=== PATIENT | male | born 1955 | race Caucasian/White ===

== ENCOUNTER 2024-05-16 08:27 | Outpatient (REF) | payer MEDICARE, SELFPAY ==
--- NOTE | ~2024-05-16 | XR_ITS ---
CLINICAL HISTORY: M25.562 - Pain in left knee 3 view left knee Comparison: None Findings: Bones intact. There appears to be mild lateral subluxation of the patella. Medial joint space loss with subchondral sclerosis. Chondrocalcinosis in the lateral compartment. Patellofemoral osteophytes. No joint effusion. No radiopaque foreign body. IMPRESSION: 1. Tricompartment degenerative change with joint space loss greatest in the medial compartment. Mild lateral patellar subluxation. This document has been electronically signed by: Jalyn Ribera MD on 05/18/2024 06:23:37
--- NOTE | ~2024-05-16 | XR_ITS ---
CLINICAL HISTORY: M25.561 - Pain in right knee 3 view right knee Comparison: None Findings: Bones intact. No dislocations. Medial compartment joint space loss with subchondral sclerosis. Lateral compartment chondrocalcinosis. Patellofemoral osteophyte formation. mild lateral subluxation of the patella. Small to moderate joint effusion. No radiopaque foreign body. IMPRESSION: 1. 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 2. Chondrocalcinosis. 3. Mild medial patellar subluxation and small to moderate joint effusion. This document has been electronically signed by: Jalyn Ribera MD on 05/18/2024 09:03:50
== END 2024-05-16 08:28 | disposition home or self-care (01) ==
LOC: HO.HOSX 08:27
PROVIDERS: Visit Provider Orthopaedic Surgery
DX: M25.562 Pain in left knee (principal); M25.561 Pain in right knee; M17.0 Bilateral primary osteoarthritis of knee; M11.261 Other chondrocalcinosis, right knee; S83.001A Unspecified subluxation of right patella, initial encounter; M25.461 Effusion, right knee
CPT/HCPCS: 73562

== ENCOUNTER 2024-05-16 12:39 | Outpatient (AMB) | payer OTHER, SELFPAY ==
--- NOTE | 2024-05-16 12:59 | MHC.OFFVIS ---
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 He describes his pains as sharp nature. His pains have gotten worse over the last few years in spite of continued non operative treatments. He has failed the last 3 months of conservative treatment which include a home exercise program, Tylenol and topical creams. He is not able to take anti-inflammatory medicines because he is on Eliquis. He has had cortisone injections given into both of his hands in the past. The injections gave him only temporary relief. He wishes to hold off on surgery if at all possible. At this point his bilateral knee pains are interfering with his activities of daily living and his ability to sleep well through the night. Medication List - Last Reconciled 05/16/24 by Danny Samnao MD apixaban (Eliquis) 5 mg PO BID atorvastatin 40 mg PO DAILY losartan 25 mg PO DAILY metoprolol succinate ER 25 mg PO DAILY valacyclovir 1,000 mg PO BID Physical Exam Vital Signs: BMI result Body Mass Index 30.7 Const Other: Well-nourished well-developed very friendly male awake alert and oriented x3 in no acute distress Extrem Other: Bilateral lower extremity examination shows good capillary refill, no skin lesions noted, normal sensation light touch Bilateral knee examination shows minimal effusions, palpable crepitus with range of motion, pain with range of motion, no instability Results Reviewed Results Reviewed: X-rays of the patient's bilateral knees taken today show moderate joint space narrowing most significant in the medial compartment, subchondral sclerosis, no acute bony abnormalities Assessment & Plan Assessment & Plan (1) Osteoarthritis of right knee: Code(s): M17.11 - Unilateral primary osteoarthritis, right knee Category: Medical (2) Osteoarthritis of left knee: Code(s): M17.12 - Unilateral primary osteoarthritis, left knee Category: Medical Plan Mr. Causey presents with bilateral knee pains due to osteoarthritis. I had a lengthy discussion with the patient regarding the treatment options. He wishes to hold off on surgery for as long as possible. I agree with this plan. Thus, I will see whether or not the patient's insurance company will cover a viscosupplementation injection, such as Durolane, for both of his knees. I will see him back once the injections are available. Feel free to call me at any time should questions regarding his orthopedic management arise. I spent 21 minutes in reviewing the patient's records and imaging studies, seeing the patient and documenting in the medical record. Orders: Orders XR knee LT 3V Today M25.562 - Pain in left knee XR knee RT 3V Today M25.561 - Pain in right knee Coding Level of Care Code Est Pt Level 3 (45001) Complex EM visit Add On G2211 Diagnoses Osteoarthritis of right knee M17.11 Osteoarthritis of left knee M17.12
[2024-05-16 13:08] VITALS: BMI 30.7
--- OUTSIDE RECORDS SUMMARY | 2024-05-16 14:52 | XMS_ITS | Clinical Summary ---
Author Organization [facility] Address [address] [place] [address] Care Team Providers Care Ballroom Dance Instructor Name Role Phone Ellis Prince MD Primary Care Provider [phone] Allergies Active Allergy Reactions Criticality Noted Date Comments Doxycycline 04/01/2021 Other reaction(s): Peeling of skin Lisinopril 07/25/2020 Medications Medication Sig Dispensed Refills Start Date End Date Status losartan (COZAAR) tablet 25 mg Take 1 tablet by mouth daily. 0 12/16/2020 Active metoprolol succinate (TOPROL-XL) 24 hr tablet 25 mg Take 1 tablet by mouth daily. 0 12/16/2020 Active Family History Medical History Relation Name Comments Diabetes Father Cancer Mother Relation Name Status Comments Father Mother Social History Tobacco Use Types Packs/Day Years Used Date Smoking Tobacco: Never Assessed Sex and Gender Information Value Date Recorded Sex Assigned at Not on file Gender Identity Not on file Sexual Orientation Not on file Job Start Date Occupation Industry Not on file Not on file Not on file Last Filed Vital Signs Vital Sign Reading Time Taken Comments Blood Pressure - - Pulse - - Temperature - - Respiratory Rate - - Oxygen Saturation - - Inhaled Oxygen Concentration - - Weight 96.2 kg (212 lb) 04/09/2021 9:28 AM EST Height 177.8 cm (5' 10 ) 04/09/2021 9:28 AM EST Body Mass Index 30.42 04/09/2021 9:28 AM EST Plan of Treatment Health Maintenance Due Date Last Done Comments Hepatitis C Screening 1955 COVID-19 Vaccine (#1) 1953 Depression Screening 1965 BMI Counseling 1971 Preventative Health Evaluation 1971 DTap / Tdap / Td (1 - Tdap) 1972 Colon Cancer Screening (Colonoscopy) 1998 Shingrix-Zoster Vaccine (1 of 2) 2003 Fall Risk Assessment 2018 Pneumococcal Vaccine (1 of 1 - PCV) 2018 Influenza Vaccine (#1) 2023 RSV Adult > 60+ Yrs or Pregn ant (1 - 1-dose 75+ series) 2028 Hepatitis B Vaccines Aged Out No long er eligible based on patient's age to complete this topic RSV Ped < 20 months Aged Out No longe r eligible based on patient's age to complete this topic Care Teams Ballroom Dance Instructor Relationship Specialty Start Date End Date Ellis Prince MD [address] [facility], [address] [place] [address] PCP - General Rn Chemical Dependency 03/18/21
--- OUTSIDE RECORDS SUMMARY | 2024-05-16 14:52 | XMS_ITS | Encounter Summary ---
Author Organization [facility] Address [address] [place] [address] Care Team Providers Care Airport Utility Worker Name Role Phone Myra Martinez Primary Care P rovider Reason for Visit * Reason Onset Date Comments Chest Pain 04/26/2024 travel advise 04/26/2024 Encounter Details Date Type Department Care Team (Late st Contact Info) Description 04/26/2024 Telephone [facility] Cardiology [address] [place] [address] Thiago Hunt MD [address] [place] [address],[address] [address] Chest Pain; travel advise Social History Tobacco Use Types Packs/Day Years Used Date Smoking Tobacco: Former Smokeless Tobacco: Never Alcohol Use Standard Drinks/Week Comments Yes 0 (1 standard drink = 0.6 oz pur e alcohol) a glass of wine with dinner Sex and Gender Information Value Date Recorded Sex Assigned at Male 05/15/2024 3:34 PM EDT Legal Sex Male 1:59 AM EST Gender Identity Male 05/15/2024 3:34 PM EDT Sexual Orientation Straight 05/15/2024 3: 34 PM EDT documented as of this encounter Progress Notes * Brea Teixeira MA - 04/28/2024 8:01 AM EST I called Ellis and advised as souravo * Deangelo Soria - 04/27/2024 1:25 PM EST Patient calling back wanting to know if he would be ok to be on a plane since he Is leaving for [place] on Wednesday. * Brea Teixeira MA - 04/27/2024 8:[address] Hunt would you like to see the pt for a triage visit, or since he was in the office a couple weeks ago would you just like to have a phone conversation with him ? I did advise him he will need a more aggressive approach towards trying to get a referral for the cpap machine via new PCP * Crista East NP - 04/27/2024 7:47 AM EST It appears the patient was just recently seen by Dr. Hunt a couple weeks ago with extensive conversations about continuing the Eliquis regimen. If he continues to have questions or exhibits any more symptoms of chest discomfort, shortness of breath or worsening symptoms, he may need to have a triage visit for further evaluation. Please review ER precautions as well. * Brea Teixeira MA - 04/26/2024 4:35 PM EST I spoke to Ellis who tells me two nights ago he had an episode of chest pain and dizziness which happened on his way inside the house from getting wood for his stove, he had to lay down for a whileuntil the sensation went away, he knows the signs to look for for an NM and he was negative for all, he does say during the episode his head was pounding, but quickly went away when the pain was gone, he drinks two cups of caffeinated coffee in the am and has 1 to 2 glasses of wine with dinner every night. He is compliant with all meds but is questioning the Eliquis since it states the side effects are worse for people who have had back surgeries which he has had, as you know he has untreated sleep apnea and has had quite the trouble getting a referral from the former PCP, he is due to see a new PA in the office but not soon enough, the night of the incident he did say he had spicy blackened scallops but he is not stranger to spice so he states it could have not contributed. He is aware why he is taking the Eliquis but wonders if it can either be lowered or discontinued altogether. Hi average bp is 130/80 and hr in the 70's--today he is completely asymptomatic and is in good spirits He is aware his careteam has gone home for the day and I will be calling him with advisement tomorrow * Kya Fishman - 04/26/2024 4:18 PM EST The patient called, 2 nights ago he was having intense chest pain, dizziness and did not feel well.He almost went to the ER but it resolved on its own. He has had no incidents since. This brought upquestions and concerns he has regarding his medications. He is also traveling to [place] soon and is worried about that. Please call him back at [phone]. documented in this encounter Plan of Treatment Upcoming Encounters Date Type Department Care Team (Late st Contact Info) Description 07/06/2024 11:20 AM EDT Consult [facility] Cardiology [facility] [address] [place] [address] Aidan Barcenas MD [address] [facility] [address] [place] [address] 10/03/2024 9:00 AM EDT Ancillary Procedure [facility] Cardiology [facility] [address] [place] [id number] 10/24/2024 10:10 AM EDT Office Visit [facility] [address] [place] [address] Jeronimo Stiles NP [address] [place] [address] [address] [place] [address] documented as of this encounter Visit Diagnoses Not on filedocumented in this encounter Care Teams Airport Utility Worker Relationship Specialty Start Date End Date Myra Martinez PA [address] [place] [id number] PCP - General 04/03/24 documented as of this encounter
--- OUTSIDE RECORDS SUMMARY | 2024-05-16 14:52 | XMS_ITS | Clinical Summary ---
Author Organization [facility] [employer] Address [address] [place] [address] Phone Care Team Providers Care Family Practitioner Name Role Phone Myra Martinez Primary Care P rovider Allergies Active Allergy Reactions Criticality Noted Date Comments Doxycycline 04/01/2021 Other reaction(s): Peeling of skin Lisinopril 07/25/2020 Medications ascorbic acid (VITAMIN C) 500 mg chewable tablet Take 500 mg by mouth daily. 10/22/19 20 Active vitamin B complex/folic acid (B COMPLEX 100 ORAL) Take 1 Tablet by mouth daily. 10/22/19 20 Active MAGNESIUM CITRATE ORAL Take 1 tablet by mouth 1 (one) time each day. 10/22/19 20 Active valacyclovir HCl (VALACYCLOVIR ORAL) Take by mouth as needed. Active aspirin 81 mg EC tablet Take 1 tablet (81 mg total) by mouth 1 (one) time each day. 11/18/19 23 Active cholecalciferol (VITAMIN D-3) 50 mcg (2,000 unit) tablet Take 1 tablet (2,000 Units total) by mouth 1 (one) time each day. Active furosemide (LASIX) 20 mg tablet Take 1 tablet (20 mg total) by mouth 1 (one) time each day if needed. 02/27/20 23 Active metoprolol succinate (TOPROL-XL) 25 mg 24 hr tablet Take 1 tablet (25 mg total) by mouth 1 (one) time each day. 12/06/19 24 Active losartan (COZAAR) 25 mg tablet TAKE 1 TABLET BY MOUTH DAILY 90 tablet 1 03/08/19 25 Active multivitamin with minerals tablet Take 1 tablet by mouth 1 (one) time each day. Active ASHWAGANDHA EXTRACT ORAL Take by mouth. Active plant stanol fabiano (CHOLEST OFF ORAL) Take by mouth. Active ZINC ORAL Take by mouth. Active atorvastatin (LIPITOR) 40 mg tabletIndications:Pure hypercholesterolemia Take 1 tablet (40 mg total) by mouth 1 (one) time each day. 90 each 3 04/04/19 25 026 Active apixaban (ELIQUIS) 5 mg tablet Take 1 tablet (5 mg total) by mouth 2 (two) times a day. 180 tablet 1 04/21/19 25 Active apixaban (ELIQUIS) 5 mg tablet Take 1 tablet (5 mg total) by mouth 2 (two) times a day. 025 Discontin ued(Reord er) Active Problems Problem Noted Date Diagnosed Date Pure hypercholesterolemia 04/04/2024 Assessment & Plan (04/04/2024 12:30 PM EST): LDL in90's on atorvastatin 10 mg. Will increase to 40 mg a day. Paroxysmal atrial fibrillation 04/02/2024 Assessment & Plan (04/04/2024 12:26 PM EST): Suspect contribution of untreated sleep apnea. Patient had abnl sleep study a year ago and has not yet had device therapy!!! Possible trigger was berberine as part of vessel health supplement . Negative 48 hr holter. Continue eliquis for at least 6 months and use link bird for monitoring for now. Orders: ECG 12 lead Transthoracic echocardiogram (TTE) complete with PRN contrast, bubble, strain, and 3D order panel; Future Coronary artery disease 01/31/2024 Left inguinal pain 01/31/2024 Recurrent left inguinal hernia 01/31/2024 Vertigo 08/27/2022 Nonischemic cardiomyopathy 08/08/2020 Assessment & Plan (04/04/2024 12:26 PM EST): EF has improved. Will update echo. Orders: ECG 12 lead ELIO (obstructive sleep apnea) 08/08/2020 Thoracic aortic aneurysm without rupture 021 Assessment & Plan (04/04/2024 12:26 PM EST): Dilated aortic root and ascending aorta. Will update echo. Orders: ECG 12 lead Transthoracic echocardiogram (TTE) complete with PRN contrast, bubble, strain, and 3D order panel; Future Nonrheumatic aortic (valve) insufficiency 2020 Assessment & Plan (04/04/2024 12:26 PM EST): Moderate on prior echo and on exam. Orders: ECG 12 lead Transthoracic echocardiogram (TTE) complete with PRN contrast, bubble, strain, and 3D order panel; Future Shortness of breath 07/25/2020 Encounters Date Type Department Care Team Description 05/16/2024 9:45 AM EDT Ancillary Procedure [facility] [address] [place] [address] Claudication of both lower extremities (CMS/HCC) 04/26/2024 [address]phone [facility] [address] [place] [address] Dontrell Sylvester MD Chest Pain; travel advise 04/04/2024 9:20 AM EST Office Visit [facility] [address] [place] [address] Dontrell Sylvester MD Nonrheumatic aortic (valve) insufficiency (Primary Dx); Nonischemic cardiomyopathy (CMS/HCC); Thoracic aortic aneurysm without rupture, unspecified part (CMS/HCC); Paroxysmal atrial fibrillation (CMS/HCC); Pure hypercholesterolemia; Claudication of both lower extremities (CMS/HCC) 03/10/2024 1:30 PM EST Ancillary Procedure [facility] [address] [place] [address] Tachycardia; Shortness of breath 03/08/2024 [address]phone [facility] [address] [place] [address] Dontrell Sylvester MD 03/02/2024 Telephone [facility] [address] [facility] [address] [place] [address] Dontrell Sylvester MD patient having episodes of a-fib from Last 3 Months Surgical History Surgery Date Site/Laterality Comments BACK SURGERY PROCEDURE: HISTORICAL BACK SURGERY SHOULDER SURGERY PROCEDURE: HISTORICAL SHOULDER SURGERY HERNIA REPAIR 09/27/2015 Left PROCEDURE: LAPAROSCOPY, INGUINAL HERNIA REPAIR Medical History Medical History Date Comments Coronary artery disease DX:Coron rohan artery disease Left inguinal pain DX:Left ingui nal pain Recurrent left inguinal hernia D X:Recurrent left inguinal hernia ELIO (obstructive sleep apnea) DX :ELIO (obstructive sleep apnea) Occipital headache DX:Occipital headache Family History Medical History Relation Name Comments Diabetes Father Other: heart disease Father Other: lymphoma Mother Relation Name Status Comments Father Mother [...] Orientation Straight 05/15/2024 3: 34 PM EDT Obstetrics History Last Filed Vital Signs Vital Sign Reading Time Taken Comments Blood Pressure 130/66 04/04/2024 9:08 AM EST Pulse 62 04/04/2024 9:08 AM EST Temperature - - Respiratory Rate - - Oxygen Saturation 95% 04/04/2024 9:08 AM EST Inhaled Oxygen Concentration - - Weight 99.7 kg (219 lb 11.2 oz) 04/04/2024 9:08 AM EST Height 177.8 cm (5' 10 ) 04/04/2024 9:08 AM EST Body Mass Index 31.52 04/04/2024 9:08 AM EST Plan of Treatment Upcoming Encounters Date Type Department Care Team (Late st Contact Info) Description 07/06/2024 11:20 AM EDT Consult [facility] [address] [facility] [address] [place] [address] Aidan Barcenas MD [address] [place] [address] [address] [place] [address] 10/03/2024 9:00 AM EDT Ancillary Procedure [facility] [address] [place] [address] 10/24/2024 10:10 AM EDT Office Visit [facility] [address] [place] [phone] Jeronimo Stiles NP [address] [place] [address] [address] [place] [address] Health Maintenance Due Date Last Done Comments DTaP,Tdap,and Td Vaccines (1 - Tdap) 1972 Pneumococcal Vaccine: 50+ Years (1 of 2 - PCV) 1972 RSV Immunization Patients 60+ Years Old (1 - Risk 60-74 years 1-dose series) 2013 Zoster Vaccines (1 of 2) 02/04/2016 12/10/2015 Abdominal Aortic Aneurysm (AAA) Screen 02/01/2022 Colorectal Cancer Screening: Colonoscopy 02/01/2022 Depression Screening 02/01/2022 Falls Risk Assessment 02/01/2022 Hepatitis C Screening 02/01/2022 Medicare Annual Wellness Visit 02/01/2022 Social Influencers of Health Screening 02/01/2022 Hypertension/CHF/CAD Annual BMP Blood Test 02/04/2022 03/29/2019 COVID-19 Vaccine ( season) 2023 02/19/2021, 06/29/2020, 05/30/2020 Influenza Vaccine (#1) 2023 0, 02/08/2019, 01/14/2017, Additional history exists Cholesterol Screening (Lipid Panel) 03/31/2029 03/31/2024 HIB Vaccines Aged Out No longer eligi ble based on patient's age to complete this topic HPV Vaccines Aged Out No longer eligi ble based on patient's age to complete this topic Hepatitis A Vaccines Aged Out No long er eligible based on patient's age to complete this topic Hepatitis B Vaccines Aged Out No long er eligible based on patient's age to complete this topic IPV Vaccines Aged Out No longer eligi ble based on patient's age to complete this topic MMR Vaccines Aged Out No longer eligi ble based on patient's age to complete this topic Meningococcal ACWY Vaccine Aged Out N o longer eligible based on patient's age to complete this topic Meningococcal B Vacine Aged Out No lo nger eligible based on patient's age to complete this topic RSV Immunization Patients Under 20 months Aged Out No longer eligible based on patient's age to complete this topic Varicella Vaccines Aged Out No longer eligible based on patient's age to complete this topic Procedures Procedure Name Priority Date/Time Associated Diagnosis Comments ECG 12-LEAD Routine 04/04/2024 9:21 AM EST Nonrheumatic aortic (valve) insufficiency Nonischemic cardiomyopathy (CMS/HCC) Thoracic aortic aneurysm without rupture, unspecified part (CMS/HCC) Paroxysmal atrial fibrillation (CMS/HCC) SPECIMEN STATUS REPORT Routine 03/31/2024 10:00 AM EST LIPID PANEL Routine 03/31/2024 10:00 AM EST CARDIAC HOLTER MONITOR (REPORT GENERATED IN HOUSE) Routine 03/10/2024 1:34 PM EST Tachycardia Shortness of breath from Last 3 Months Results * ECG 12 lead (04/04/2024 9:21 AM EST) Ventricular Rate ECG 62 BPM GEMUSE Atrial Rate 62 BPM GEMUSE P-R Interval 198 ms GEMUSE QRS Duration 98 ms GEMUSE Q-T Interval 428 ms GEMUSE QTc 434 ms GEMUSE P Wave [place] 76 degrees GEMUSE R [place] 9 degrees GEMUSE T [place] -31 degrees GEMUSE ECG Interpretation Normal sinus rhythm ST and T wave abnormality, consider lateral ischemia Abnormal ECG When compared with ECG of 26-APR-2015 16:45, Inverted T waves have replaced nonspecific T wave abnormality in Lateral leads Confirmed by DONTRELL SYLVESTER ([id number]) on 04/04/2024 9:31:47 AM GEMUSE 04/04/2024 9:21 AM EST 04/04/2024 9:31 AM EST us Dontrell Sylvester MD ECG ORDERABLES Final Result GEMUSE * SPECIMEN STATUS REPORT (03/31/2024 10:00 AM EST) Specimen Status Report Comment [facility] 1 Comment: Cecilia Benitez LP Default Cecilia Mcnamararedelfina LP Default A hand-written panel/profile was received from your office. In accordance with the [facility] Ambiguous Test Code Policy dated August 2002, we have completed your order by using the closest currently or formerly recognized AMA panel. ??We have assigned Lipid Panel, Test Code #383306 to this request. If this is not the testing you wished to receive on this specimen, please contact the [facility] Client Inquiry/Technical Services Department to clarify the test order. ??We appreciate your business. 03/31/2024 10:0 0 AM EST 03/31/2024 Narrative [facility] 1 - 04/01/2024 1:05 AM EST Performed at: ??01 - [facility] [address] ??[id number] Mine Engineering Manager: Consuelo Villagomez MD, Phone: ??[phone] us Dontrell Sylvester MD LAB BLOOD ORDERABLES Final Res ult [facility] * (ABNORMAL) Lipid panel (03/31/2024 10:00 AM EST) Cholesterol Total 164 100 - 199 mg/dL [facility] 1 Triglycerides 158(H) 0 - 149 mg/dL [facility] 1 HDL Cholesterol 46 >39 mg/dL [facility] 1 VLDL Cholesterol Calculated 27 5 - 40 mg/dL [facility] 1 LDL Chol Calc (NIH) 91 0 - 99 mg/dL [facility] 1 03/31/2024 10:0 0 AM EST 03/31/2024 Narrative [facility] 1 - 04/01/2024 1:05 AM EST Performed at: ??01 - [facility] [address] ??[id number] Mine Engineering Manager: Consuelo Villagomez MD, Phone: ??[phone] us Dontrell Sylvester MD LAB BLOOD ORDERABLES Final Res ult [facility] * CARDIAC HOLTER MONITOR (REPORT GENERATED IN HOUSE) (03/10/2024 1:34 PM EST) Anatomical Region Laterality Modality Cardiac Diagnost ic Narrative 03/19/2024 8:40 PM EST [facility] DIAGNOSTIC TESTING DEPARTMENT [address] [facility], [id number] [place] [id number] TEL: FAX: Type of Test: 48 Hour Holter Monitor Date of Test: 03/10/2024 Ordering Provider: Isabel Carrillo NP Reason for Test: Tachycardia, Shortness of breath [facility] Canine Service Teacher Findings: ?? 1: Normal Sinus Rhythm with periods of Sinus Bradycardia. 2: Heart rate range was 47-108 BPM with an average of 65 BPM. Total time in Sinus Bradycardia: 20 hrs 51 mins. ?? 3: Occasional PACs. Rare aberrant beats, atrial pairs, and atrial trigeminy. There were a few atrial runs and one short run of ectopic atrial rhythm noted with heart rates up to 146 BPM. 4: Frequent PVCs. Rare couplets/triplets and ventricular bi/trigeminy. 5: No significant pause, longest R-R was 1.5 seconds at 6:23 AM. 6: Diary returned with symptoms of lightheadedness, shortness of breath, and dizziness noted. EKG at those times showed mainly Normal Sinus Rhythm; occasional PACs, frequent isolated PVCs, rare atrial pairs, ventricular couplets, and aberrantly conducted beats. Heart rates were in the range of 55-85 BPM. ?? Impression: ?? 1: Normal Sinus Rhythm with periods of Sinus Bradycardia. 2: Heart rate range was 47-108 BPM with an average of 65 BPM. Total time in Sinus Bradycardia: 20 hrs 51 mins. ?? 3: Occasional PACs. Rare atrial pairs, and atrial trigeminy. There were a few brief atrial runs and one short run of ectopic atrial rhythm noted with heart rates up to 146 BPM. 4: Frequent PVCs. Rare couplets/triplets and ventricular bi/trigeminy. No ventricular tachycardia. 5: No significant pause or disturbance in AV conduction.. 6: Diary returned with symptoms of lightheadedness, shortness of breath, and dizziness noted. EKG at those times showed mainly Normal Sinus Rhythm; occasional PACs, frequent isolated PVCs, rare atrial pairs and ventricular couplets. Heart rates were in the range of 55-85 BPM. ??No hemodynamically significant dysrhythmia is detected. Isabel Carrillo NP [facility] CARDIAC SERVICES PROCEDURES Final Result from Last 3 Months Insurance [employer] MEDICARE Care Teams Family Practitioner Relationship Specialty Start Date End Date Myra Martinez PA [address] [place] [address] [phone] PCP - General 04/03/24
--- OUTSIDE RECORDS SUMMARY | 2024-05-16 14:52 | XMS_ITS ---
Author Name [facility] Organization Unknown Results Test Name/Text Value Interpretation Date Range Source LAB AP DIAGNOSIS COMMENT Received from [facility], [address] [place] [address], [address], [place] [address] are two slides and two blocks labeled [id number], which are retained for our files. Normal [id number] [facility] CLINICAL INFORMATION S[facility]; margins requested Normal [id number] [facility] AP DIAGNOSIS COMMENT Received from [facility], [address] [place] [address], [address], [place] [address] are one slide and one block labeled [id number] , which are retained for our files. Normal [id number] [facility] CLINICAL INFORMATION [facility] Normal [id number] [facility]
--- OUTSIDE RECORDS SUMMARY | 2024-05-16 14:52 | XMS_ITS | Encounter Summary ---
Author Organization [facility] Address [address] [place] [address] Care Team Providers Care Enterprise Account Executive Name Role Phone Myra Martinez Primary Care P ann Reason for Visit * Imaging (Routine) - Authorized Specialty Diagnoses / Procedures Referred By Contac t Referred To Contact Diagnoses Claudication of both lower extremities (CMS/HCC) Procedures Vascular US duplex lower extremity arteries bilateral with TIARRA Thiago Hunt MD [address] [place] [address] [place] [address] Phone: tel: fax: [facility] Referral ID Status Reason Start Date Expiration Date V isits Requested Visits Authorized [id number] Authorized 04/04/2024 04/04/2025 1 1 Encounter Details Date Type Department Care Team (Latest Contact Info) Description 05/16/2024 9:45 AM EDT Ancillary Procedure [facility] [address] [place] [address] Claudication of both lower extremities (CMS/HCC) Social History Tobacco Use Types Packs/Day Years [...] PM EDT documented as of this encounter Plan of Treatment Upcoming Encounters Date Type Department Care Team (Late st Contact Info) Description 07/06/2024 11:20 AM EDT Consult [facility] Card[facility] [address] [place] [address] Aidan Barcenas MD [address] [place] [address] [address] [place] [address] 10/03/2024 9:00 AM EDT Ancillary Procedure [facility] Card[facility] [address] [place] [address] 10/24/2024 10:10 AM EDT Office Visit [facility] Card[facility] [address] [facility] [address] [place] [phone] Jeronimo Stiles NP [address] [place] [address] [address] [place] [address] Pending Results Name Type Priority Associated Diagnoses Date /Time Vascular US duplex lower extremity arteries bilateral with TIARRA Vascular Ultrasound Routine Claudication of both lower extremities (CMS/HCC) 05/16/2024 10:26 AM EDT documented as of this encounter Visit Diagnoses Diagnosis Claudication of both lower extremities (CMS/HCC) documented in this encounter Care Teams Enterprise Account Executive Relationship Specialty Start Date End Date Myra Martinez PA [address] [place] [address] PCP - General 04/03/24 documented as of this encounter
== END 2024-05-16 13:23 | disposition home or self-care (01) ==
LOC: HO.HOS 12:40
PROVIDERS: PCP Internal Medicine; Visit Provider Orthopaedic Surgery
DX: M17.0 Bilateral primary osteoarthritis of knee (principal)
CPT/HCPCS: 99213

== ENCOUNTER → 2024-05-16 12:43 | Outpatient (BNV) | payer MEDICARE, SELFPAY | PROVIDERS: Visit Provider Radiology Diagnostic Radiology | DX: M17.12 Unilateral primary osteoarthritis, left knee (principal); M11.261 Other chondrocalcinosis, right knee | CPT/HCPCS: 73562 ==

== ENCOUNTER 2024-05-29 09:05 | Outpatient (AMB) | payer MEDICARE, SELFPAY ==
[2024-05-29 09:08] VITALS: BMI 30.7
--- NOTE | 2024-05-29 09:08 | A.OFFVIS_ITS ---
Vital Signs 05/29/24 09:08 Height 5 ft 10 in Weight 214 lb BMI 30.7 Intake Visit Reasons: Inj-Bilateral Knee Durolane Intake Note: Ellis is a 69 year old male who presents with complaints of progressively worsening bilateral knee pains. He describes his pains as sharp nature. His pains have gotten worse over the last few years in spite of continued non operative treatments. He has failed the last 3 months of conservative treatment which include a home exercise program, Tylenol and topical creams. He is not able to take anti-inflammatory medicines because he is on Eliquis. He has had cortisone injections given into both of his hands in the past. The injections gave him only temporary relief. He wishes to hold off on surgery if at all possible. At this point his bilateral knee pains are interfering with his activities of daily living and his ability to sleep well through the night. Medication List - Last Reconciled 05/29/24 by Danny Samano MD apixaban (Eliquis) 5 mg PO BID atorvastatin 40 mg PO DAILY losartan 25 mg PO DAILY metoprolol succinate ER 25 mg PO DAILY valacyclovir 1,000 mg PO BID Physical Exam Vital Signs: BMI result Body Mass Index 30.7 Const Other: Well-nourished well-developed very friendly male awake alert and oriented x3 in no acute distress Extrem Other: Bilateral lower extremity examination shows good capillary refill, no skin lesions noted, normal sensation light touch Bilateral knee examination shows minimal effusions, palpable crepitus with range of motion, pain with range of motion, no instability Office Procedures AMB Joint Injection/Aspiration Joint Injection/Aspiration Primary Site: left knee Prep: site was prepped using aseptic technique Injected: 60 mg of (Durolane viscosupplementation) and 1% plain lidocaine Procedure: The patient tolerated the procedure well Coding 39582 - Large joint Procedure code (CPT) selection complete AMB Joint Injection/Aspiration Joint Injection/Aspiration Primary Site: right knee Prep: site was prepped using aseptic technique Injected: 60 mg of (Durolane viscosupplementation) Procedure: The patient tolerated the procedure well Coding 61881 - Large joint Procedure code (CPT) selection complete Results Reviewed Results Reviewed: X-rays of the patient's bilateral knees taken previously show joint space narrowing, subchondral sclerosis, no acute bony abnormalities Assessment & Plan Assessment & Plan (1) Osteoarthritis of left knee: Code(s): M17.12 - Unilateral primary osteoarthritis, left knee Category: Medical (2) Osteoarthritis of right knee: Code(s): M17.11 - Unilateral primary osteoarthritis, right knee Category: Medical Plan Mr. Causey presents with bilateral knee pains due to osteoarthritis. The risks and benefits of bilateral knee Durolane viscosupplementation injections were discussed at length with the patient. The patient wished to proceed. He tolerated the injections well. He will continue with his home exercise program. He will contact me prior to his follow-up appointment in 3 months should any questions or concerns arise. I spent 21 minutes in reviewing the patient's records and imaging studies, seeing the patient and documenting in the medical record. Orders: Orders AMB Joint Injection/Aspiration Today M17.12 - Unilateral primary osteoarthritis, left knee AMB Joint Injection/Aspiration Today M17.11 - Unilateral primary osteoarthr itis, right knee Coding Level of Care Code Est Pt Level 3 (14864) Complex EM visit Add On G2211 Diagnoses Osteoarthritis of left knee M17.12 Osteoarthritis of right knee M17.11 CPT Codes Coding - 18106 Large joint: 42317 - Large joint ([id number]) Coding - 94067 Large joint: 25353 - Large joint ([id number])
== END 2024-05-29 09:39 | disposition home or self-care (01) ==
LOC: HO.HOS 09:05
PROVIDERS: Visit Provider Orthopaedic Surgery
DX: M17.0 Bilateral primary osteoarthritis of knee (principal)
CPT/HCPCS: 20610; 99213

== ENCOUNTER → 2024-05-29 09:05 | Outpatient (BNVA) | payer MEDICARE, SELFPAY | PROVIDERS: Visit Provider Orthopaedic Surgery | DX: M17.0 Bilateral primary osteoarthritis of knee (principal) | CPT/HCPCS: 20610; 99212; J2003; J7318 ==

== ENCOUNTER 2024-07-04 10:28 | Outpatient (REF) | payer MEDICARE, SELFPAY ==
--- NOTE | ~2024-07-04 | XR_ITS ---
EXAMINATION: XR HAND/WRIST, RIGHT XR HAND/WRIST, LEFT CLINICAL INFORMATION: M79.643 - Pain in unspecified hand COMPARISON: None TECHNIQUE: PA, lateral, and oblique views of the each hand and wrist. FINDINGS: RIGHT HAND/WRIST: No fracture, dislocation, or suspicious bone lesion. No periarticular osteopenia identified. Erosive arthropathy identified involving the third MCP joint, with joint space narrowing, and periarticular subtle erosions. Lesser degrees of involvement of the first, and second MCPs. The fourth and fifth appear preserved. There is subtle chondrocalcinosis of the TFCC, raising the possibility of CPPD arthropathy. Moderate arthritis present in the STT joints and first CMC joint. Mild to moderate arthritis identified throughout the DIP joints of the digits, with subtle marginal erosions seen. There is no additional soft tissue abnormality. LEFT HAND/WRIST: No fracture, dislocation, or suspicious bone lesion. No periarticular osteopenia identified. Erosive arthropathy identified involving the third MCP joint, with joint space narrowing, and periarticular subtle erosions. Lesser degrees of involvement of the first, and second MCPs. The fourth and fifth appear preserved. There is subtle chondrocalcinosis of the TFCC, raising the possibility of CPPD arthropathy. Moderate arthritis present in the STT joints and first CMC joint. Mild to moderate arthritis identified throughout the DIP joints of the digits, with subtle marginal erosion seen. There is no additional soft tissue abnormality. 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 Differential would include an atypical appearance of primary erosive osteoarthritis, or atypical appearance of psoriatic arthritis, although the presence of chondrocalcinosis highly suggests CPPD. Electronically signed by: Mike Menchaca MD 07/04/2024 02:26 PM EDT
--- OUTSIDE RECORDS SUMMARY | 2024-07-04 12:02 | XMS_ITS | Clinical Summary ---
Author Organization [facility] [employer] Address [address] [place] [address] Phone Care Team Providers Care Hot Dip Tinning Supervisor Name Role Phone Myra Martinez Primary Care P rovider Allergies Active Allergy Reactions Criticality Noted Date Comments Doxycycline 04/01/2021 Other reaction(s): Peeling of skin Lisinopril 07/25/2020 Medications ascorbic acid (VITAMIN C) 500 mg chewable tablet Take 500 mg by mouth daily. 10/22/19 Active vitamin B complex/folic acid (B COMPLEX 100 ORAL) Take 1 Tablet by mouth daily. 10/22/19 Active MAGNESIUM CITRATE ORAL Take 1 tablet by mouth 1 (one) time each day. 10/22/19 Active valacyclovir HCl (VALACYCLOVIR ORAL) Take by mouth as needed. Active aspirin 81 mg EC tablet Take 1 tablet (81 mg total) by mouth 1 (one) time each day. 11/18/19 Active cholecalciferol (VITAMIN D-3) 50 mcg (2,000 unit) tablet Take 1 tablet (2,000 Units total) by mouth 1 (one) time each day. Active furosemide (LASIX) 20 mg tablet Take 1 tablet (20 mg total) by mouth 1 (one) time each day if needed. 02/27/20 Active losartan (COZAAR) 25 mg tablet TAKE 1 TABLET BY MOUTH DAILY 90 tablet 1 03/08/19 Active multivitamin with minerals tablet Take 1 [...] day. 180 tablet 1 04/21/19 25 Active metoprolol succinate (TOPROL-XL) 25 mg 24 hr tablet TAKE 1 TABLET BY MOUTH DAILY 90 tablet 3 05/31/19 25 Active Active Problems Problem Noted Date Diagnosed Date Pure hypercholesterolemia 04/04/2024 Assessment & Plan (04/04/2024 12:30 PM EST): LDL in90's on atorvastatin 10 mg. Will increase to 40 mg a day. Paroxysmal atrial fibrillation (CMS/HCC V24, CMS /HCC V28) 04/02/2024 Assessment & Plan (04/04/2024 12:26 PM EST): Suspect contribution of untreated sleep apnea. Patient had abnl sleep study a year ago and has not yet had device therapy!!! Possible trigger was berberine as part of vessel health supplement . Negative 48 hr holter. Continue eliquis for at least 6 months and use B[employer] for monitoring for now. Orders: ECG 12 lead Transthoracic echocardiogram (TTE) complete with PRN contrast, bubble, strain, and 3D order panel; Future Coronary artery disease 01/31/2024 Left inguinal pain 01/31/2024 Recurrent left inguinal hernia 01/31/2024 Vertigo 08/27/2022 Nonischemic cardiomyopathy (CMS/HCC V24, CMS/HCC V28) 08/08/2020 Assessment & Plan (04/04/2024 12:26 PM EST): EF has improved. Will update echo. Orders: ECG 12 lead ELIO (obstructive sleep apnea) 08/08/2020 Thoracic aortic aneurysm without rupture (CMS/HC C V24) 08/08/2020 Assessment & Plan (04/04/2024 12:26 PM [...] Encounters Date Type Department Care Team Description 06/30/2024 8:01 AM EDT - 06/30/2024 11:59 PM EDT Hospital Encounter [facility] CT Scan [address] [place] [address] Claudication of both lower extremities (CMS/HCC V24) Discharge Disposition: Home or Self Care 06/05/2024 Telephone [facility] [address] [place] [address] [place] [address] Jeronimo Stiles NP Appointment (CTA Abd Aorta w/runoff) 06/02/2024 Telephone [facility] [address] [place] [address] [place] [address] Jeronimo Stiles NP Testing (Auth CTA Abd Aort) 05/24/2024 Telephone [facility] [address] [place] [address] [place] [address] Thiago Hunt MD Vascular TIARRA (Vascular TIARRA ) 05/16/2024 9:45 AM EDT Ancillary Procedure [facility] [address] [place] [address] Claudication of both lower extremities (CMS/HCC V24) 04/26/2024 Telephone [facility] [address] [place] [address] [place] [address] Thiago Hunt MD Chest Pain; travel advise from Last 3 Months Surgical History Surgery [...] Info) Description 07/06/2024 11:20 AM EDT Consult [facility] [address] [place] [address] Aidan Barcenas MD [address] [place] [address] 10/03/2024 9:00 AM EDT Ancillary Procedure [facility]iology [facility] [address] [place] [address] 10/24/2024 10:10 AM EDT Office Visit [facility] [address] [place] [id number] Jeronimo Stiles NP [address] [place] [address] [address] [place] [address] Health Maintenance Due Date Last Done Comments DTaP,Tdap,and Td Vaccines (1 - Tdap) 1972 Pneumococcal Vaccine: 50+ Years (1 of 2 - PCV) 1972 RSV Immunization Adult Patients (1 - Risk 60-74 years 1-dose series) 2013 Zoster Vaccines (1 of 2) 02/04/2016 12/10/2015 Abdominal Aortic Aneurysm (AAA) Screen 02/01/2022 Colorectal Cancer Screening: Colonoscopy 02/01/2022 Depression Screening 02/01/2022 Falls Risk Assessment 02/01/2022 Hepatitis C Screening 02/01/2022 Medicare Annual Wellness Visit 02/01/2022 Social Influencers of Health Screening 02/01/2022 COVID-19 Vaccine ( season) 2023 02/19/2021, 06/29/2020, 05/30/2020 Influenza Vaccine (Season Ended) 2024 02/13/2020, 02/08/2019, 01/14/2017, Additional history exists Hypertension/CHF/CAD Annual BMP Blood Test 06/27/2025 06/27/2024, 03/29/2019 Cholesterol Screening (Lipid Panel) 03/31/2029 03/31/2024 HIB [...] age to complete this topic Meningococcal B Vaccine Aged Out No l onger eligible based on patient's age to complete this topic RSV Immunization Patients Under 20 months Aged Out No longer eligible based on patient's age to complete this topic Varicella Vaccines Aged Out No longer eligible based on patient's age to complete this topic Procedures Procedure Name Priority Date/Time Associated Diagnosis Comments CT ANGIO ABDOMINAL AORTA W RUNOFF Routine 06/30/2024 8:41 AM EDT Claudication of both lower extremities ([facility] V24) BASIC METABOLIC PANEL Routine 06/27/2024 1:44 PM EDT VAS US DUPLEX LOWER EXT ARTERIES BILAT WITH TIARRA Routine 05/16/2024 10:26 AM EDT Claudication of both lower extremities ([facility] V24) LIPID PANEL Routine 03/31/2024 10:00 AM EST from Last 3 Months or Most Recently Relevant to Health Maintenance Results * CT Angio Abdominal Aorta w Runoff (06/30/2024 8:41 AM EDT) Anatomical Region Laterality Modality Body Computed Tomogra phy 06/30/2024 2:46 PM EDT Impressions 06/30/2024 4:23 PM EDT Impression: No proximal large vessel occlusion or high-grade stenosis. ??Recommend correlation with arterial Doppler to evaluate calf vessel disease part particularly on the left distally. Significant osteoarthritis of both knees. ??Small joint effusion and synovitis of the right knee. Incidental findings as above. -------- FINAL REPORT -------- Dictated By: Margarita Solis Dictated Date: 06/30/2024 14:46 ET Assigned Physician: Margarita Solis Reviewed and Electronically Signed By: Margarita Solis Signed Date: 06/30/2024 16:23 ET Workstation ID: [id number] Transcribed By: Self Edit Transcribed Date: 06/30/2024 14:46 ET Narrative 06/30/2024 4:[address] angiography abdomen and pelvis INDICATION: Claudication or leg ischemia Comparison: None TECHNIQUE: CT angiography of the abdomen and pelvis following the intravenous administration of 100cc Isovue 370. Multiplanar reformats. The examination was performed utilizing dose reduction techniques. Total DLP 203 Vasculature: ? Aorta: Mild atherosclerotic changes. ??No evidence of abdominal aortic aneurysm or dissection. Celiac artery: Mild atherosclerotic changes without significant stenosis. SMA: ??Mild atherosclerotic changes without significant stenosis. REVA: ??Mild atherosclerotic changes without significant stenosis. Renals: Mild atherosclerotic changes without significant stenosis. Runoff: Evaluation of the right lower extremity demonstrates patent right lower extremity vasculature to the level of the ankle. ??No high-grade stenosis evident on CT. ??If there is concern for calf vessel disease recommend correlation with arterial Doppler. ??Evaluation of the left lower extremity demonstrates patent vessels to the distal calf beyond which is difficult to evaluate, especially the anterior tibial artery posterior tibial artery appears widely patent.. ??If there is concern for calf vessel disease recommend correlation with arterial Doppler. ??There is no proximal large vessel occlusion or high-grade stenosis. Nonvascular findings: Lung bases: Atelectasis. Spleen: Normal. Pancreas: Normal. Liver: Normal. Gallbladder/biliary: Normal. Adrenals: Normal. Kidneys: Normal. ?? Bowel/mesentery: No free air, free fluid, obstruction or focal inflammatory change. ??There is some stool formation in the distal small bowel presumably related to stasis. Lymph nodes: No pathologically enlarged lymph nodes. Bladder: Unremarkable. Pelvic organs: Unremarkable. Osseous structures: Scattered degenerative changes throughout. ??Postsurgical changes of the lumbar spine and lumbosacral junction. ??Degenerative changes in both knees with small right joint effusion and synovitis. Other: Small fat-containing left temporal hernia with presumed bilateral varicoceles. ??Mild subcutaneous edema the distal lower extremities. Procedure Note Margarita Solis MD - 06/30/2024 CT angiography abdomen and pelvis INDICATION: Claudication or leg ischemia Comparison: None TECHNIQUE: CT angiography of the abdomen and pelvis following theintravenous administration of 100cc Isovue 370. Multiplanar reformats. Theexamination was performed utilizing dose reduction techniques. Total [id number] Vasculature: Aorta: Mild atherosclerotic changes. No evidence of abdominal aorticaneurysm or dissection. Celiac artery: Mild atherosclerotic changes without significantstenosis. SMA: Mild atherosclerotic changes without significant stenosis. REVA: Mild atherosclerotic changes without significant stenosis. Renals: Mild atherosclerotic changes without significant stenosis. Runoff: Evaluation of the right lower extremity demonstrates patent rightlower extremity vasculature to the level of the ankle. No high-gradestenosis evident on CT. If there is concern for calf vessel diseaserecommend correlation with arterial Doppler. Evaluation of the left lowerextremity demonstrates patent vessels to the distal calf beyond which isdifficult to evaluate, especially the anterior tibial artery posteriortibial artery appears widely patent.. If there is concern for calf vesseldisease recommend correlation with arterial Doppler. There is no proximallarge vessel occlusion or high-grade stenosis. Nonvascular findings: Lung bases: Atelectasis. Spleen: Normal. Pancreas: Normal. Liver: Normal. Gallbladder/biliary: Normal. Adrenals: Normal. Kidneys: Normal. Bowel/mesentery: No free air, free fluid, obstruction or focalinflammatory change. There is some stool formation in the distal smallbowel presumably related to stasis. Lymph nodes: No pathologically enlarged lymph nodes. Bladder: Unremarkable. Pelvic organs: Unremarkable. Osseous structures: Scattered degenerative changes throughout.Postsurgical changes of the lumbar spine and lumbosacral junction.Degenerative changes in both knees with small right joint effusion andsynovitis. Other: Small fat-containing left temporal hernia with presumed bilateralvaricoceles. Mild subcutaneous edema the distal lower extremities. IMPRESSION: Impression: No proximal large vessel occlusion or high-grade stenosis. Recommendcorrelation with arterial Doppler to evaluate calf vessel disease partparticularly on the left distally. Significant osteoarthritis of both knees. Small joint effusion andsynovitis of the right knee. Incidental findings as above. -------- FINAL REPORT -------- Dictated By: Margarita Solis Dictated Date: 06/30/2024 14:46 ET Assigned Physician: Margarita Solis Reviewed and Electronically Signed By: Margarita Solis Signed Date: 06/30/2024 16:23 ET Workstation ID: [id number] Transcribed By: Self Edit Transcribed Date: 06/30/2024 14:46 ET us Jeronimo Stiles DIRECTOR PERIOPERATIVE IMG CT PROCEDURES Final Res ult * (ABNORMAL) Basic metabolic panel (06/27/2024 1:44 PM EDT) Glucose 97 70 - 99 mg/dL [facility] Blood Urea Nitrogen (BUN) 11 8 - 27 mg/dL [facility] Creatinine 0.99 0.76 - 1.27 mg/dL [facility] 1 eGFR 81 >59 mL/min/1.7 3 [facility] 1 BUN/Creatinine Ratio 11 10 - 24 [facility] 1 Sodium 142 134 - 144 mmol/L [facility] Potassium 5.1 3.5 - 5.2 mmol/L [facility] 1 Chloride 105 96 - 106 mmol/L [facility] 1 Carbon Dioxide 19(L) 20 - 29 mmol/L [facility] Calcium 8.9 8.6 - 10.2 mg/dL [facility] 1 06/27/2024 1:44 PM EDT 06/27/2024 Narrative [facility] - 06/28/2024 6:07 PM EDT Performed at: ??01 - [facility] [address] ??[id number] Net Ui Developer: Consuelo Villagomez MD, Phone: ??[phone] us Thiago Hunt MD LAB BLOOD ORDERABLES Final Res ult [facility] * Vascular US duplex lower extremity arteries bilateral with TIARRA (05/16/2024 10:26 AM EDT) Left Dist External Iliac PSV 85 cm/s [facility] Left Prox External Iliac PSV 97 cm/s [facility] Left AT dist sys PSV 70 cm/s [facility] Left AT mid sys PSV 194 cm/s CV [facility] Left AT prox sys PSV 68 cm/s CV VAS LAB Left MECHANIC MARINE ENGINE prox sys PSV 105 cm/s CV [facility] LAB Left mid peroneal sys PSV 51 cm/s CV VAS LAB Left popliteal dist sys PSV 62 cm/s CV [facility] LAB Left popliteal prox sys PSV 77 cm/s CV VAS LAB Left PT dist sys PSV 86 cm/s CV VAS LAB Left PT mid sys PSV 94 cm/s CV [facility] Left PT prox sys PSV 55 cm/s CV [facility] LAB Left profunda sys PSV 91 cm/s CV V[facility] LAB Left super femoral dist sys PSV 96 cm/s CV [facility] LAB Left super femoral mid sys PSV 111 cm/s CV [facility] LAB Left super femoral prox sys PSV 100 cm/s [facility] Right Dist External Iliac PSV 144 cm/s CV [facility] LAB Right Prox External Iliac PSV 129 cm/s [facility] Right AT dist sys PSV 74 cm/s CV [facility] LAB Right AT mid sys PSV 101 cm/s CV VAS LAB Right AT prox sys PSV 84 cm/s CV VAS LAB Right MECHANIC MARINE ENGINE prox sys PSV 81 cm/s CV [facility] LAB Right mid peroneal sys PSV 50 cm/s CV [facility] LAB Right popliteal dist sys PSV 90 cm/s CV [facility] LAB Right popliteal prox sys PSV 84 cm/s [facility] LAB Right PT dist sys PSV 80 cm/s [facility] LAB Right PT mid sys PSV 104 cm/s [facility] Right PT prox sys PSV 65 cm/s CV [facility] LAB Right profunda sys PSV 84 cm/s [facility] Right super femoral dist sys PSV 96 cm/s [facility] Right super femoral mid sys PSV 110 cm/s [facility] Right super femoral prox sys PSV 105 cm/s [facility] Right arm BP 134 mmHg [facility] Left arm BP 140 mmHg [facility] Right posterior tibial 172 mmHg [facility] Right Dorsalis Pedis 165 mmHg [facility] Right TIARRA 1.23 CV [facility] Left posterior tibial 167 mmHg [facility] Left Dorsalis Pedis 176 mmHg CV [facility] Left TIARRA 1.26 CV VAS LAB Anatomical Region Laterality Modality Vascular, Abdomen Ultrasound Narrative 05/24/2024 2:44 PM EDT Right le. ??Normal ankle-brachial index (1.23). 2. ??There is evidence of moderate stenosis (20-49%) in the following arterial segments: Common femoral artery, proximal posterior tibial artery, distal anterior tibial artery, mid peroneal artery Left le. ??Normal ankle-brachial index (1.26). 2. ??There is evidence of moderate stenosis (20-49%) in the following arterial segments: Profunda femoral artery, posterior tibial artery, mid peroneal artery. 3. ??Incidental finding: There is evidence of a heterogeneous avascular structure in the left popliteal fossa measuring 6.29 cm x 1.57 cm x 3.51 cm, which may represent a complex Liang's cyst. Right TIARRA Right BP= 134/56 Left TIARRA Left BP= 140/74 Right Lower Arterial Duplex The distal external iliac artery has triphasic flow. The common femoral artery has biphasic flow. The profunda femoris artery has biphasic flow. The superficial femoral artery has triphasic flow. The popliteal artery has triphasic flow. The proximal anterior tibial artery has triphasic flow. The mid anterior tibial artery has triphasic flow. The distal anterior tibial artery has biphasic flow. The proximal posterior tibial artery has biphasic flow. The mid posterior tibial artery has triphasic flow. The distal posterior tibial artery has triphasic flow. The mid peroneal artery has biphasic flow. Left Lower Arterial Duplex The distal external iliac artery has triphasic flow. The common femoral artery has triphasic flow. The profunda femoris artery has biphasic flow. The superficial femoral artery has triphasic flow. The popliteal artery has triphasic flow. There was a complex Liang's cyst located in the back of the left knee measuring 6.29 x 1.57 x 3.51cm. The anterior tibial artery has triphasic flow. The proximal posterior tibial artery has biphasic flow. The mid posterior tibial artery has biphasic flow. The distal posterior tibial artery has triphasic flow. The mid peroneal artery has biphasic flow. Curriculum Supervisor Details A trejo scale, color and doppler analysis ultrasound was performed. During the study longitudinal and transverse views were obtained. Pulsed wave doppler was performed. us Thiago Hunt MD CV VASCULAR PROCEDURES Final R esult * (ABNORMAL) Lipid panel (03/31/2024 10:00 AM [...] AM EST Performed at: ??01 - [facility] [address] ??[id number] Net Ui Developer: Consuelo Villagomez MD, Phone: ??[phone] us Thiago Hunt MD LAB BLOOD ORDERABLES Final Res ult [facility] 1 from Last 3 Months or Most Recently Relevant to Health Maintenance Insurance [employer] MEDICARE Care Teams Hot Dip Tinning Supervisor Relationship Specialty Start Date End Date Myra Martinez PA [address] [phone] PCP - General 04/03/24
--- OUTSIDE RECORDS SUMMARY | 2024-07-04 12:02 | XMS_ITS | Clinical Summary ---
Author Organization [facility] Address [address] [place] [address] Care Team Providers Care Stave Log Ripsaw Operator Name Role Phone Ellis Prince MD Primary Care Provider [phone] Allergies Active Allergy Reactions Criticality Noted Date [...] age to complete this topic Care Teams Stave Log Ripsaw Operator Relationship Specialty Start Date End Date Ellis Prince MD [address] [place] [address] PCP - General Systems Engineer 03/18/21
--- OUTSIDE RECORDS SUMMARY | 2024-07-04 12:02 | XMS_ITS | Encounter Summary ---
Author Organization [facility] Address [address] [place] [address] Care Team Providers Care Director Of Solutions Architecture Name Role Phone Myra Martinez Primary Care P ann Reason for Referral * Imaging (Routine) - Closed Specialty Diagnoses / Procedures Referred By Contac t Referred To Contact Diagnoses Claudication of both lower extremities (CMS/HCC V24) Procedures CT Angio Abdominal Aorta w Runoff Jeronimo Stiles NP [address] [place] [address] Dr [address] [place] [address] Phone: tel: fax: [address] [address] Phone: tel: Referral ID Status Reason Start Date Expiration Date Visits Re quested Visits Authorized [id number] Closed 05/25/2024 05/25/2025 1 1 Reason for Visit * Imaging (Routine) - Closed Specialty Diagnoses / Procedures Referred By Contac t Referred To Contact Diagnoses Claudication of both lower extremities ([facility]/HCC V24) Procedures CT Angio Abdominal Aorta w Runoff Jeronimo Stiles NP [address] [place] [address] Dr [address] [place] [address] Phone: tel: fax: [address] [address] Phone: tel: Referral ID Status Reason Start Date Expiration Date Visits Re quested Visits Authorized [id number] Closed 05/25/2024 05/25/2025 1 1 Encounter Details Date Type Department Care Team (Latest Contact Info) Description 06/30/2024 8:01 AM EDT - 06/30/2024 11:59 PM EDT Hospital Encounter [facility] CT Scan [address] [place] [address] Claudication of both lower extremities (CMS/HCC V24) Discharge Disposition: Home or Self Care Social History Tobacco Use Types Packs/Day Years [...] PM EDT documented as of this encounter Medications at Time of Discharge apixaban (ELIQUIS) 5 mg tablet Take 1 tablet (5 mg total) by mouth 2 (two) times a day. 180 tablet 1 5 ascorbic acid (VITAMIN C) 500 mg chewable tablet Take 500 mg by mouth daily. 0 ASHWAGANDHA EXTRACT ORAL Take by mouth. aspirin 81 mg EC tablet Take 1 tablet (81 mg total) by mouth 1 (one) time each day. 3 atorvastatin (LIPITOR) 40 mg tabletIndications:Pure hypercholesterolemia Take 1 tablet (40 mg total) by mouth 1 (one) time each day. 90 each 3 5 04/04/19 26 cholecalciferol (VITAMIN D-3) 50 mcg (2,000 unit) tablet Take 1 tablet (2,000 Units total) by mouth 1 (one) time each day. furosemide (LASIX) 20 mg tablet Take 1 tablet (20 mg total) by mouth 1 (one) time each day if needed. 3 losartan (COZAAR) 25 mg tablet TAKE 1 TABLET BY MOUTH DAILY 90 tablet 1 5 MAGNESIUM CITRATE ORAL Take 1 tablet by mouth 1 (one) time each day. 0 metoprolol succinate (TOPROL-XL) 25 mg 24 hr tablet TAKE 1 TABLET BY MOUTH DAILY 90 tablet 3 5 multivitamin with minerals tablet Take 1 tablet by mouth 1 (one) time each day. plant stanol fabiano (CHOLEST OFF ORAL) Take by mouth. valacyclovir HCl (VALACYCLOVIR ORAL) Take by mouth as needed. vitamin B complex/folic acid (B COMPLEX 100 ORAL) Take 1 Tablet by mouth daily. 0 ZINC ORAL Take by mouth. documented as of this encounter Discharge Disposition Disposition Code Departure Means Destination Home or Self Care documented in this encounter Plan of Treatment Upcoming Encounters Date Type Department Care Team (Late st Contact Info) Description 07/06/2024 11:20 AM EDT Consult [facility] Cardiology [facility] [address] [place] [address] Dr Bernardo [address] [place] [address] Aidan Barcenas MD [address] [place] [address] Dr [address] [place] [address] 10/03/2024 9:00 AM EDT Ancillary Procedure [facility] [address] [place] [address] 10/24/2024 10:10 AM EDT Office Visit [facility] [address] [place] [address] Dr Bernardo [address] [place] [address] Jeronimo Stiles NP [address] [place] [address] Dr Will [address] [place] [address] documented as of this encounter Procedures Procedure Name Priority Date/Time Associated Diagnosis Comments CT ANGIO ABDOMINAL AORTA W RUNOFF Routine 06/30/2024 8:41 AM EDT Claudication of both lower extremities (CMS/HCC V24) documented in this encounter Results * CT Angio Abdominal Aorta w [...] Signed Date: 06/30/2024 16:23 ET Workstation ID: [id number] Transcribed By: Self Edit Transcribed Date: 06/30/2024 14:46 ET Narrative 06/30/2024 4:[address] angiography abdomen and pelvis INDICATION: Claudication or leg ischemia Comparison: None TECHNIQUE: CT angiography of the abdomen and pelvis following the intravenous administration of 100cc Isovue 370. Multiplanar reformats. The examination was performed utilizing dose reduction techniques. Total DLP 2031 Vasculature: ? Aorta: Mild atherosclerotic changes. ??No [...] was performed utilizing dose reduction techniques. Total [id number] Vasculature: Aorta: Mild atherosclerotic changes. No evidence [...] Signed Date: 06/30/2024 16:23 ET Workstation ID: [id number] Transcribed By: Self Edit Transcribed Date: 06/30/2024 14:46 ET us Jeronimo Stiles CASING FINISHER AND STUFFER IMG CT PROCEDURES Final Res ult documented in this encounter Visit Diagnoses Diagnosis Claudication of both lower extremities (CMS/[facility] V24) documented in this encounter Administered Medications Inactive Administered Medications - up to 3 most recent administrations Medication Order MAR Action Action Date Dose Rate Site iopamidoL (ISOVUE-370) 370 mg iodine /mL (76 %) injection 90 mL 90 mL, intravenous, Once in imaging, Starting on Wed06/30/24 at 0831, For 1 dose Given 06/30/2024 8:33 AM EDT 120 mL sodium chloride 0.9 % flush 10 mL 10 mL, intravenous, Once, On Wed06/30/24 at 0900, For 1 dose Given 06/30/2024 8:34 AM EDT 10 mL documented in this encounter Care Teams Director Of Solutions Architecture Relationship Specialty Start Date End Date Myra Martinez PA [address] [place] [address] [address] [place] [address] PCP - General 04/03/24 documented as of this encounter
== END 2024-07-04 10:29 | disposition home or self-care (01) ==
LOC: HO.HOSX 10:28
DX: M79.643 Pain in unspecified hand (principal); M19.041 Primary osteoarthritis, right hand; M19.042 Primary osteoarthritis, left hand
CPT/HCPCS: 73130; 99202

== ENCOUNTER 2024-07-04 11:04 | Outpatient (AMB) | payer MEDICARE, SELFPAY ==
--- NOTE | 2024-07-04 11:13 | MHC.OFFVIS ---
Vital Signs 07/04/24 11:14 Height 5 ft 10 in Weight 214 lb BMI 30.7 Handedness Right Intake Visit Reasons: New prob- Bilateral hand pain, requesting inj Intake Note: Ellis is a 69 year old right hand dominant male who presents today for a new problem visit with complaints of bilateral hand pain, left greater than right. He reports getting shots every spring and usually right is worse however lately it has been his left hand. He states he was getting shots at [facility]. He expresses they injected his middle finger. He states he notices some times when he is trying to open something both of his hands lock up when he is doing this. Reports difficulty with lifting, squeezing, and grasping. States he has an exacerbation of weakness in his bilateral hands. Last injections were roughly one year in bilateral hands. He states he is experiencing numbness and tingling just about everyday but mostly at night. He wakes up on occasion due to his hands being completely asleep. States about 30 years ago he had an EMG/NCS and said he was told he had an inflamed nerve from the elbow to the wrist, he did OT for this. He expresses at this time the therapy did help his symptoms but over the years they gradually worsened. He is interested in injections. Allergies No Known Allergies Allergy (Verified 07/04/24 11:15) HPI HPI New prob- Bilateral hand pain, requesting inj: Details: Ellis is a 69 year old right hand dominant male who presents today for a new problem visit with complaints of bilateral hand pain, left greater than right. He reports getting shots every spring and usually right is worse however lately it has been his left hand. He states he was getting shots at [facility]. He expresses they injected his middle finger. He states he notices some times when he is trying to open something both of his hands lock up when he is doing this. Reports difficulty with lifting, squeezing, and grasping. States he has an exacerbation of weakness in his bilateral hands. Last injections were roughly one year in bilateral hands. He states he is experiencing numbness and tingling just about everyday but mostly at night. He wakes up on occasion due to his hands being completely asleep. States about 30 years ago he had an EMG/NCS and said he was told he had an inflamed nerve from the elbow to the wrist, he did OT for this. He expresses at this time the therapy did help his symptoms but over the years they gradually worsened. He is interested in injections. [facility] Medical History (Updated 07/04/24 @ 11:38 by CULLEN Márquez) Arthritis of both hands Social History (Updated 07/04/24 @ 11:16 by FRANKLIN eFrrara) Alcohol intake: current Alcohol type: wine Comment: a glass of wine with dinner Patient Tobacco Use Status: Never used Tobacco Current occupational status: retired Current occupation: right handed Review of Systems Const All systems reviewed & are unremarkable except as noted in HPI and below Physical Exam Vital Signs: BMI result Body Mass Index 30.7 Extrem Other: Patient is alert, oriented, and in no acute distress. Neuro: Normal sensation of the tips of all digits of the bilateral hand at this time Vascular: Cap refill brisk Pain: No tenderness to palpation about the bilateral hands or wrists Some discomfort with range of motion of bilateral hands, particularly in the middle finger MCP joints of both hands ROM: Patient was able to make a closed fist and extend all digits of bilateral hands fully Skin: No lacerations or abrasions. General: No ecchymosis, erythema, or evidence of infection. Psych: Appears grossly normal Affect normal Attitude cooperative Results Reviewed Results Reviewed: X-rays obtained in the office today and independently reviewed by me, Crow Cruz PA-C, demonstrate [id number] osteoarthritis of bilateral middle finger MCP joints. Assessment & Plan Assessment & Plan (1) Arthritis of both hands: Code(s): M19.041 - Primary osteoarthritis, right hand; M19.042 - Primary osteoarthritis, left hand Category: Medical Plan 1. Osteoarthritis of bilateral hands Patient is educated about this condition Patient is educated about the typical treatment course At this time, patient states he is interested in repeat steroid injections into the MCP joints of bilateral middle fingers, so he is referred for next available appointment with Dr. Reeves for injection under imaging Patient was also referred to occupational therapy to work on range of motion and strengthening of bilateral hands Patient was amenable to this plan Follow-up for next available appointment with Dr. Reeves, sooner with any acute concerns Orders: Orders XR Hand Bilat min 3v Today M79.643 - Pain in unspecified hand OT Evaluation and Treatment Today M19.041 - Primary osteoarthritis, right hand, M19.042 - Primary osteoarthritis, left hand Coding Level of Care Code New Pt Level 3 (19324) Diagnoses Arthritis of both hands M19.041; M19.042
[2024-07-04 11:14] VITALS: BMI 30.7
--- OUTSIDE RECORDS SUMMARY | 2024-07-04 12:52 | XMS_ITS | Clinical Summary ---
Author Organization [facility] Address [address] [place] [address] Care Team Providers Care Heater Helper Forge Name Role Phone Ellis Prince MD Primary Care Provider [phone] Allergies Active Allergy Reactions Criticality Noted Date [...] age to complete this topic Care Teams Heater Helper Forge Relationship Specialty Start Date End Date Ellis Prince MD [address] [facility], [address] [place] [address] PCP - General Hay Stacker Operator 03/18/21
--- OUTSIDE RECORDS SUMMARY | 2024-07-04 12:52 | XMS_ITS | Clinical Summary ---
Author Organization [facility] Address [address] [facility] [place] [address] Phone Care Team Providers Care Software Design Manager Name Role Phone Myra Martinez Primary Care [...] for at least 6 months and use [employer] for monitoring for now. Orders: ECG 12 [...] - 06/30/2024 11:59 PM EDT Hospital Encounter [facility] CT Scan [address] [place] [address] Claudication of both lower extremities (CMS/HCC V24) Discharge Disposition: Home or Self Care 06/05/2024 Telephone [facility] Cardiology [facility] [address] [place] [address] [place] [address] Jeronimo Stiles NP Appointment (CTA Abd Aorta w/runoff) 06/02/2024 Telephone [facility] [address] [place] [address] [place] [address] Jeronimo Stiles NP Testing (Auth CTA Abd Aort) 05/24/2024 Telephone [facility] [address] [place] [address] [place] [address] Thiago Hunt MD Vascular TIARRA (Vascular TIARRA ) 05/16/2024 9:45 AM EDT Ancillary Procedure [facility] [address] [place] [address] Claudication of both lower extremities (CMS/HCC V24) 04/26/2024 Telephone [facility] [address] [place] [address] [place] [address] Thiago Hunt MD Chest Pain; [...] Info) Description 07/06/2024 11:20 AM EDT Consult [facility] [address] [place] [address] Aidan Barcenas MD [facility] [address] [place] [address] 10/03/2024 9:00 AM EDT Ancillary Procedure [facility] Cardiology [facility] [address] [place] [address] 10/24/2024 10:10 AM EDT Office Visit [facility] [address]ardo [address] [place] [id number] Jeronimo Stiles NP [address] [place] [address] Dr Will [address] [place] [address] Health Maintenance Due Date Last Done Comments [...] AM EDT Claudication of both lower extremities ([facility] V24) BASIC METABOLIC PANEL Routine 06/27/2024 1:44 PM EDT VAS US DUPLEX LOWER EXT ARTERIES BILAT WITH TIARRA Routine 05/16/2024 10:26 AM EDT Claudication of both lower extremities ([facility] V24) LIPID PANEL Routine 03/31/2024 [...] Signed Date: 06/30/2024 16:23 ET Workstation ID: [id number] Transcribed By: Self Edit Transcribed Date: 06/30/2024 [...] was performed utilizing dose reduction techniques. Total [id number] Vasculature: Aorta: Mild atherosclerotic changes. No evidence [...] Signed Date: 06/30/2024 16:23 ET Workstation ID: [id number] Transcribed By: Self Edit Transcribed Date: 06/30/2024 14:46 ET us Jeronimo Stiles SUPERVISOR FURNACE PROCESS IMG CT PROCEDURES Final Res ult * [...] PM EDT Performed at: ??01 - [facility] [address] ??[id number] Concrete Batching Plant Operator: Consuelo Villagomez MD, Phone: ??[phone] us Thiago Hunt MD LAB BLOOD ORDERABLES [...] PSV 68 cm/s CV VAS LAB Left ALUM OPERATOR prox sys PSV 105 cm/s CV VAS [...] PSV 84 cm/s CV VAS LAB Right ALUM OPERATOR prox sys PSV 81 cm/s CV VAS [...] The mid peroneal artery has biphasic flow. Photographer Details A trejo scale, color and doppler [...] AM EST Performed at: ??01 - [facility] [address] ??[id number] Concrete Batching Plant Operator: Consuelo Villagomez MD, Phone: ??[phone] us Thiago Hunt MD LAB BLOOD ORDERABLES Final Res ult [facility] 1 from Last 3 Months or Most Recently Relevant to Health Maintenance Insurance [employer] MED[employer] Care Teams Software Design Manager Relationship Specialty Start Date End Date Myra Martinez PA [address] [phone] PCP - General 04/03/24
--- OUTSIDE RECORDS SUMMARY | 2024-07-04 12:52 | XMS_ITS | Encounter Summary ---
Author Organization [facility] Address [address] [place] [address] Care Team Providers Care Atm Manager Name Role Phone Myra Martinez Primary Care P ann Reason for Referral * Imaging (Routine) - Closed Specialty Diagnoses / Procedures Referred By Contac t Referred To Contact Diagnoses Claudication of both lower extremities (CMS/HCC V24) Procedures CT Angio Abdominal Aorta w Runoff Jeronimo Stiles NP [address] [place] [address] Dr [address] [place] [address] Phone: tel: fax: [address] [address] Phone: tel: Referral ID Status Reason Start Date Expiration Date Visits Re quested Visits Authorized [id number] Closed 05/25/2024 05/25/2025 1 1 Reason for Visit * Imaging (Routine) - Closed Specialty Diagnoses / Procedures Referred By Contac t Referred To Contact Diagnoses Claudication of both lower extremities ([facility]/HCC V24) Procedures CT Angio Abdominal Aorta w Runoff Jeronimo Stiles NP [address] [place] [address] Dr Will [address] [place] [address] Phone: tel: fax: [address] [address] Phone: tel: Referral ID Status Reason Start Date Expiration Date Visits Re quested Visits Authorized [id number] Closed 05/25/2024 05/25/2025 1 1 Encounter Details Date Type Department Care Team (Latest Contact Info) Description 06/30/2024 8:01 AM EDT - 06/30/2024 11:59 PM EDT Hospital Encounter [facility] CT Scan [address] [place] [address] Claudication of both lower extremities [...] Info) Description 07/06/2024 11:[address] [facility] Cardiology [facility] [address] [place] [address] Dr Bernardo [address] [place] [address] Aidan Barcenas MD [address] [place] [address] Dr Will [address] [place] [address] 10/03/2024 9:00 AM EDT Ancillary Procedure [facility] [address] [place] [address] 10/24/2024 10:10 AM EDT Office Visit [facility] [address] [place] [address] Dr Bernardo [address] [place] [address] Jeronimo Stiles NP [address] [place] [address] Dr Will [address] [place] [address] documented as of this encounter Procedures Procedure [...] Signed Date: 06/30/2024 16:23 ET Workstation ID: [id number] Transcribed By: Self Edit Transcribed Date: 06/30/2024 [...] was performed utilizing dose reduction techniques. Total [id number] Vasculature: Aorta: Mild atherosclerotic changes. No evidence [...] Signed Date: 06/30/2024 16:23 ET Workstation ID: [id number] Transcribed By: Self Edit Transcribed Date: 06/30/2024 14:46 ET us Jeronimo Stiles AIR PLANT ENGINEER IMG CT PROCEDURES Final Res ult documented in this encounter Visit Diagnoses Diagnosis Claudication of both lower extremities (CMS/[facility] V24) documented in this encounter Administered Medications [...] mL documented in this encounter Care Teams Atm Manager Relationship Specialty Start Date End Date Myra Martinez PA [address] [place] [address] [address] [place] [address] PCP - General 04/03/24 documented as of this encounter
== END 2024-07-04 11:40 | disposition home or self-care (01) ==
LOC: HO.HOS 11:05
DX: M19.041 Primary osteoarthritis, right hand (principal); M19.042 Primary osteoarthritis, left hand
CPT/HCPCS: 99203

== ENCOUNTER → 2024-07-04 11:06 | Outpatient (BNV) | payer MEDICARE, SELFPAY | PROVIDERS: Visit Provider Radiology Diagnostic Radiology | DX: M79.641 Pain in right hand (principal); M79.642 Pain in left hand | CPT/HCPCS: 73110; 73130 ==

== ENCOUNTER 2024-07-12 11:09 | Outpatient (REF) | payer MEDICARE, SELFPAY ==
--- NOTE | ~2024-07-12 | FL_ITS ---
EXAMINATION: XR FLUOROSCOPY WITH IMAGES CLINICAL INFORMATION: M19.041 - Primary osteoarthritis, right hand COMPARISON: None available. TECHNIQUE: Fluoroscopy performed by: Dr. Alisha Reeves Fluoroscopy time: 22.3 seconds DAP: 8641.4 Gycm2 Images: 2 FINDINGS: 2 spot images taken during pain management injection of the right hand involving the third MCP joint. Please refer to the full procedural report for details. FL/FL guided needle placement IMPRESSION: Fluoroscopic guidance. Electronically signed by: Mike Menchaca MD 07/13/2024 08:27 AM EDT
--- OUTSIDE RECORDS SUMMARY | 2024-07-12 12:38 | XMS_ITS | Encounter Summary ---
Author Organization [facility] Address [address] [place] [address] Care Team Providers Care Second Miller Name Role Phone Myra Martinez Primary Care P rovider Reason for Visit * Reason Comments Follow-up Encounter Details Date Type Department Care Team (Late st Contact Info) Description 07/06/2024 11:20 AM EDT Consult [facility] [address] [place] [phone] Aidan Barcenas MD [address] [place] [address] [address] [place] [address] Claudication of both lower extremities (CMS/HCC V24) [...] from the original note were not included. [facility] PCP: CULLEN Avelar HPI: History [...] Q-T Interval 428 QTc 434 P Wave Hatfield 76 R Hatfield 9 T Hatfield -31 ECG Interpretation Normal sinus rhythm ST [...] nerve problems - Referral to neurologist or collections specialist for further evaluation of potential nerve [...] Description 10/03/2024 9:00 AM EDT Ancillary Procedure [facility] - [address] [place] [address] 10/24/2024 10:10 AM EDT Office Visit [facility] [address] [place] [address] Jeronimo Stiles NP [address] [place] [address] [address] [place] [address] documented as of this encounter Visit Diagnoses Diagnosis Claudication of both lower extremities (CMS/[facility] V24)- Primary documented in this encounter Historical Medications * This list may reflect changes made after this encounter. traMADoL (ULTRAM) 50 mg tablet Take by mouth. added in this encounter Care Teams Second Miller Relationship Specialty Start Date End Date Myra Martinez PA [address] [place] [id number] PCP - General 04/03/24 documented as of this encounter
--- OUTSIDE RECORDS SUMMARY | 2024-07-12 12:38 | XMS_ITS | Clinical Summary ---
Author Organization [facility] Leevia Address [address] [place] [address] Phone Care Team Providers Care Peer Health Promoter Name Role Phone Myra Martinez Primary Care [...] Diagnosed Date Claudication of both lower extremities ([facility] V24) 07/06/2024 Pure hypercholesterolemia 04/04/2024 Assessment & [...] for at least 6 months and use Red Mapache for monitoring for now. Orders: ECG 12 lead Transthoracic echocardiogram (TTE) complete with PRN contrast, bubble, strain, and 3D order panel; Future Coronary artery disease 01/31/2024 Left inguinal pain 01/31/2024 Recurrent left inguinal hernia 01/31/2024 Vertigo 08/27/2022 Nonischemic cardiomyopathy ([facility] V24, CMS/HCC V28) 08/08/2020 Assessment & Plan [...] Team Description 07/06/2024 11:20 AM EDT Consult [facility] [address] [place] [address] Aidan Barcenas MD Claudication of both lower extremities ([facility] V24) (Primary Dx) 06/30/2024 8:01 AM EDT - 06/30/2024 11:59 PM EDT Hospital Encounter [facility] CT Scan [address] [place] [address] Claudication of both lower extremities ([facility] V24) Discharge Disposition: Home or Self Care 06/05/20[address] [facility] [address] [place] [phone] Jeronimo Stiles NP Appointment (CTA Abd Aorta w/runoff) 06/02/2024 [address]phone [facility] [address] [facility] [address] [place] [address] Jeronimo Stiles NP Testing (Auth CTA Abd Aort) 05/24/2024 [address]phone [facility] [address] [place] [address] Thiago Hunt MD Vascular TIARRA (Vascular TIARRA ) 05/16/2024 9:45 AM EDT Ancillary Procedure [facility] [address] [place] [address] Claudication of both lower extremities ([facility] V24) 04/26/2024 Telephone [facility] [address] [place] [address] Thiago Hunt MD Chest Pain; [...] Description 10/03/2024 9:00 AM EDT Ancillary Procedure [facility] - [address] [place] [address] 10/24/2024 10:10 AM EDT Office Visit [facility] [address] [place] [phone] [place], LONG Decker [address] [place] [address] [address] [place] [address] Health Maintenance Due Date Last Done Comments [...] AM EDT Claudication of both lower extremities ([facility] V24) BASIC METABOLIC PANEL Routine 06/27/2024 1:44 PM EDT VAS US DUPLEX LOWER EXT ARTERIES BILAT WITH TIARRA Routine 05/16/2024 10:26 AM EDT Claudication of both lower extremities ([facility] V24) LIPID PANEL Routine 03/31/2024 10:00 AM [...] Signed Date: 06/30/2024 16:23 ET Workstation ID: [id number] Transcribed By: Self Edit Transcribed Date: 06/30/2024 [...] was performed utilizing dose reduction techniques. Total [id number] Vasculature: Aorta: Mild atherosclerotic changes. No evidence [...] Signed Date: 06/30/2024 16:23 ET Workstation ID: [id number] Transcribed By: Self Edit Transcribed Date: 06/30/2024 14:46 ET us Jeronimo Stiles BRICK TOSSER IMG CT PROCEDURES Final Res ult * [...] PM EDT Performed at: ??01 - [facility] [address] ??[id number] Street Vendor: Consuelo Villagomez MD, Phone: ??[phone] us Thiago Hunt MD LAB BLOOD ORDERABLES [...] PSV 68 cm/s CV VAS LAB Left CRIMINAL LEGAL ASSISTANT prox sys PSV 105 cm/s CV VAS [...] PSV 84 cm/s CV VAS LAB Right CRIMINAL LEGAL ASSISTANT prox sys PSV 81 cm/s CV VAS [...] The mid peroneal artery has biphasic flow. Health And Fitness Professor Details A trejo scale, color and doppler [...] AM EST Performed at: ??01 - [facility] [address] ??[id number] Street Vendor: Consuelo Villagomez MD, Phone: ??[phone] us Thiago Hunt MD LAB BLOOD ORDERABLES Final Res ult [facility] 1 from Last 3 Months or Most Recently Relevant to Health Maintenance Insurance [employer] MED[employer]ARE Care Teams Peer Health Promoter Relationship Specialty Start Date End Date Myra Martinez PA [address] [place] [id number] PCP - General 04/03/24
--- OUTSIDE RECORDS SUMMARY | 2024-07-12 12:38 | XMS_ITS | Clinical Summary ---
Author Organization [facility] Address [address] [place] [address] Care Team Providers Care Supervisor Border Department Name Role Phone Ellis Prince MD Primary Care Provider [phone] Allergies Active Allergy Reactions Criticality Noted Date [...] to complete this topic Care Teams Supervisor Border Department Relationship Specialty Start Date End Date Ellis Prince MD [address] [facility], [address] [place] [address] PCP - General Dean Of Men 03/18/21
== END 2024-07-12 11:10 | disposition home or self-care (01) ==
LOC: HO.HOSX 11:09
PROVIDERS: Visit Provider Orthopaedic Surgery
DX: M19.041 Primary osteoarthritis, right hand (principal); M19.042 Primary osteoarthritis, left hand
CPT/HCPCS: 20600; 77002; 99212; J1010; J2003

== ENCOUNTER 2024-07-12 11:09 | Outpatient (AMB) | payer MEDICARE, SELFPAY ==
--- NOTE | 2024-07-12 11:36 | A.OFFVIS_ITS ---
Intake Visit Reasons: Inj- Thiago middle finger MCP inj w/ c-arm Intake Note: Ellis 69 yr old male presents today for middle finger MCP O.A injection. Last seen with Donnell Maria who advise patient be seen with Dr Reeves. Allergies No Known Allergies Allergy (Verified 07/04/24 11:15) HPI HPI Inj- Thiago middle finger MCP inj w/ c-arm: Details: Ellis is a 69 year old right hand dominant man who presents for bilateral hand OA. He complains of pain in his bilateral hands. Primarily he complains of pain in his middle finger MCP joints s, L>R. He says he has difficulty with gripping and use of his hands. He says normally his right middle finger is the more painful, but this year his left hurts him more. He also feels limited in his finger ROM, particularly in extension. He says he has not been making a full fist recently He says he used to receive annual middle finger MCP joint injections at [facility] for the last several years. He says he is retired but he has been very active with gardening and laying [employer] in the last few weeks. [facility] Medical History (Updated 07/04/24 @ 11:38 by CULLEN Márquez) Arthritis of both hands Social History (Updated 07/04/24 @ 11:16 by FRANKLIN Ferrara) Alcohol intake: current Alcohol type: wine Comment: a glass of wine with dinner Patient Tobacco Use Status: Never used Tobacco Current occupational status: retired Current occupation: right handed Review of Systems Const All systems reviewed & are unremarkable except as noted in HPI and below Physical Exam Const General: cooperative, healthy appearing and no acute distress Orientation/consciousness: patient oriented x3 HEENT Head: Yes normocephalic and Yes atraumatic Eyes EOM: EOMs intact bilaterally Resp Effort & Inspection: normal respiratory effort and able to speak in complete sentences Cardio Jugular venous distension: no JVD Skin General skin exam: turgor normal Rashes: no rashes Neuro General: patient oriented x3 Extrem Other: Evaluation of Bilateral Upper Extremity: The patient is alert, oriented, and in no acute distress Neuro: Median, Ulnar, Radial nerves motor and sensory intact and sensation is normal to the tips of all digits Vascular: Cap refill brisk ROM: He can bring his fingers closed to a fist and back into extension, with encouragement No locking & catching He was tender over the volar aspect of the MCP joints, and thus the A1 pulleys also of the middle finger MCP joints bilaterally. Skin: No lacerations or abrasions. General: No Ecchymosis. No Erythema or evidence of infection. Tender over the dorsal & palmar aspects of the 3rd MCP joints, L>R Enlargement of the 3rd MCP joints bilaterally Radiographs: 3 views of the bilateral hands from 07/04/24 were revewed by me today in clinic. They show bilateral, R>L, 3rd MCP joint osteoarthritis, with joint space narrowing Psych Appearance: grossly normal Affect: normal affect Attitude: cooperative Office Procedures AMB Fracture Care Details: No fractures, injection x2, using the mini C-arm for needle guidance [id number] x2 Fracture Billing Code: Fracture Billing Code Assessment & Plan Assessment & Plan (1) Arthritis of both hands: Code(s): M19.041 - Primary osteoarthritis, right hand; M19.042 - Primary osteoarthritis, left hand Category: Medical Plan Assessment & Plan: 1. 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 He has been very active with planting and laying cobblestone, and I encouraged him to relax for at least 1-2 weeks following his injections to allow them to start working. He is in agreement. He should work on ROM exercises, and avoid any gripping or strengthening activities I discussed the use of assistive devices for daily activity Injection #1: The risks and benefits of a steroid injection including but not limited to risk of damage to blood vessels, nerve, tendon, infection, skin bleaching, persistent or worsening pain, and failure to improve symptoms were discussed with the patient and they wish to proceed with the steroid injection. Once consent was obtained the skin over the dorsum of the Right 3rd MCP joint was sterilely prepped. The joint was then injected with a combination of 1 mL of (40 mg/ml} Depo-Medrol and 1% plain Lidocaine, using the mini C-arm for needle guidance. The patient appears to have tolerated the procedure well and with no complications. He had good early relief before leaving clinic today. He knows that they may not have another steroid injection into this joint for least 4 months. Injection #2: The risks and benefits of a steroid injection including but not limited to risk of damage to blood vessels, nerve, tendon, infection, skin bleaching, persistent or worsening pain, and failure to improve symptoms were discussed with the patient and they wish to proceed with the steroid injection. Once consent was obtained the skin over the dorsum of the Left 3rd MCP joint was sterilely prepped. The joint was then injected with a combination of 1 mL of (40 mg/ml} Depo-Medrol and 1% plain Lidocaine, using the mini C-arm for needle guidance. The patient appears to have tolerated the procedure well and with no complications. He had good early relief before leaving clinic today. He knows that they may not have another steroid injection into this joint for least 4 months. He will follow up prn Scribed for Alisha Reeves MD by Bernardo Ellis, medical transcriber, on 07/12/24 at 11:40 AM, EST. Orders: Orders FL guided needle placement Today M19.041 - Primary osteoarthritis, right hand, M19.042 - Primary osteoarthritis, left hand Coding Level of Care Code Est Pt Level 3 (36990) Diagnoses Arthritis of both hands M19.041; M19.042 CPT Codes Fracture Care - Fracture Billing Code: Fracture Billing Code ([id number])
--- OUTSIDE RECORDS SUMMARY | 2024-07-12 12:14 | XMS_ITS | Clinical Summary ---
Author Organization [facility] [employer] Address [address] [place] [address] Phone Care Team Providers Care Wharf Tender Head Name Role Phone Myra Martinez Primary Care [...] DAILY 90 tablet 3 05/31/19 25 Active traMADoL (ULTRAM) 50 mg tablet Take by mouth. Active Active Problems Problem Noted Date Diagnosed Date Claudication of both lower extremities ([facility] V24) 07/06/2024 Pure hypercholesterolemia 04/04/2024 Assessment & Plan (04/04/2024 [...] for at least 6 months and use [email or web address] for monitoring for now. Orders: ECG 12 lead Transthoracic echocardiogram (TTE) complete with PRN contrast, bubble, strain, and 3D order panel; Future Coronary artery disease 01/31/2024 Left inguinal pain 01/31/2024 Recurrent left inguinal hernia 01/31/2024 Vertigo 08/27/2022 Nonischemic cardiomyopathy ([facility] V24, CMS/HCC V28) 08/08/2020 Assessment & Plan (04/04/2024 12:26 PM EST): EF has improved. Will update echo. Orders: ECG 12 lead ELIO (obstructive sleep apnea) 08/08/2020 Thoracic aortic aneurysm without rupture (CMS/ C V24) 08/08/2020 Assessment & Plan (04/04/2024 [...] Encounters Date Type Department Care Team Description 07/06/2024 11:20 AM EDT Consult [facility] [address] [place] [address] Aidan Barcenas MD Claudication of both lower extremities ([facility] V24) (Primary Dx) 06/30/2024 8:01 AM EDT - 06/30/2024 11:59 PM EDT Hospital Encounter CT Scan [address] [place] [address] Claudication of both lower extremities ([facility] V24) Discharge Disposition: Home or Self Care 06/05/2024 Telephone [facility] [address] [place] [phone] Jeronimo Stiles NP Appointment (CTA Abd Aorta w/runoff) 06/02/2024 Telephone [facility] [address] [place] [address] Jeronimo Stiles NP Testing (Auth CTA Abd Aort) 05/24/2024 Telephone [facility] [address] [place] [address] Thiago Hunt MD Vascular TIARRA (Vascular TIARRA ) 05/16/2024 9:45 AM EDT Ancillary Procedure [facility] [address] [place] [address] Claudication of both lower extremities ([facility] V24) 04/26/2024 Telephone [facility] [address] [place] [address] Thiago Hunt MD Chest Pain; [...] Date Smoking Tobacco: Former Smokeless Tobacco: Never Tobacco Cessation:Counseling Given: Not Answered Alcohol Use Standard Drinks/Week Comments Yes 0 [...] Sign Reading Time Taken Comments Blood Pressure 118/68 07/06/2024 11:23 AM EDT Pulse 62 07/06/2024 11:23 AM EDT Temperature - - Respiratory Rate - - Oxygen Saturation 98% 07/06/2024 11:23 AM EDT Inhaled Oxygen Concentration - - Weight 98 kg (216 lb) 07/06/2024 11:23 AM EDT Height 177.8 cm (5' 10 ) 07/06/2024 11:23 AM EDT Body Mass Index 30.99 07/06/2024 11:23 AM EDT Plan of Treatment Upcoming Encounters Date Type Department Care Team (Late st Contact Info) Description 10/03/2024 9:00 AM EDT Ancillary Procedure [facility] [address] [place] [phone] 10/24/2024 10:10 AM EDT Office Visit [facility] [address] [place] [phone] Cycgilma, LONG Decker [address] [place] [address] [address] [place] [address] Health Maintenance Due Date Last Done Comments [...] AM EDT Claudication of both lower extremities ([facility] V24) BASIC METABOLIC PANEL Routine 06/27/2024 1:44 PM EDT VAS US DUPLEX LOWER EXT ARTERIES BILAT WITH TIARRA Routine 05/16/2024 10:26 AM EDT Claudication of both lower extremities ([facility] V24) LIPID PANEL Routine 03/31/2024 10:00 AM [...] Signed Date: 06/30/2024 16:23 ET Workstation ID: [id number] Transcribed By: Self Edit Transcribed Date: 06/30/2024 [...] was performed utilizing dose reduction techniques. Total [id number] Vasculature: Aorta: Mild atherosclerotic changes. No evidence [...] Signed Date: 06/30/2024 16:23 ET Workstation ID: [id number] Transcribed By: Self Edit Transcribed Date: 06/30/2024 14:46 ET us Jeronimo Stiles QUALITY DIRECTOR IMG CT PROCEDURES Final Res ult * [...] PM EDT Performed at: ??01 - [facility] [address] ??[id number] Pricing Actuary: Consuelo Villagomez MD, Phone: ??[phone] us Thiago Hunt MD LAB BLOOD ORDERABLES [...] PSV 68 cm/s CV VAS LAB Left PROVIDER SERVICE REPRESENTATIVE prox sys PSV 105 cm/s CV VAS [...] PSV 84 cm/s CV VAS LAB Right PROVIDER SERVICE REPRESENTATIVE prox sys PSV 81 cm/s CV VAS [...] The mid peroneal artery has biphasic flow. Automobile Service Writer Details A trejo scale, color and doppler [...] AM EST Performed at: ??01 - [facility] [address] ??[id number] Pricing Actuary: Consuelo Villagomez MD, Phone: ??[phone] us Thiago Hunt MD LAB BLOOD ORDERABLES Final Res ult [facility] 1 from Last 3 Months or Most Recently Relevant to Health Maintenance Insurance [employer] MEDICARE Care Teams Wharf Tender Head Relationship Specialty Start Date End Date Myra Martinez PA [address] [place] [id number] PCP - General 04/03/24
--- OUTSIDE RECORDS SUMMARY | 2024-07-12 12:14 | XMS_ITS | Data Portability ---
Author Organization [place] - [facility] Address [address] [place] [address] Care Team Providers Care Refractory Bricklayer Name Role Phone ROSSYELLIS Primary Care Provider [phone] Assessment Encounter Date Assessment Date Assessment LastModified by Organization Details LastModified Time 06/08/2023 06/08/2023 Patient did fair ly well with prior cortisone injections the long finger MP joint. I offer them again to the patient today and he wished to proceed. Also reviewed potential for Singer arthroplasties of the long fingers as well. He will follow-up symptomatically going forward, certainly contact our office should he have any difficulties Not available 06/08/2023 13:15:07 10/13/2023 10/13/2023 I reviewed my findings with the patient today. It appears he has an acute exacerbation of his underlying bilateral long finger MP joint osteoarthritis. He reports right-sided pain to be worse than his left. I offered him cortisone injections intra-articularly of the long finger MP joints, and he wished to proceed. Will follow-up symptomatically going forward. I did review potential for surgical intervention should he fail to have lasting results with his cortisone injections. Not available 10/13/2023 11:04:58 Plan of Treatment Reminders Order Date Submit Date Provider Last Modified By Organization Details Last Modified Time Details Appointments None recorded. Lab None recorded. Referral None recorded. Procedures None recorded. Surgeries None recorded. Imaging XR, finger(s), 2 or more view - 302 b long finger 3v 2023 024 [facility], [address], [address], [place], [address], 4 07:15:35 Medication Orders Kenalog 40 mg/mL suspension for injection 2023 024 nhulse Not available 10:12:46 Patient TargetsNo targets recorded. Patient InstructionsNo instructions recorded. Reason for Referral None Reported. Results Created Date Observation Date Name Description Value Unit Range Abnormal Flag Note LastModifiedBy Organization Detail LastModifiedTime 10/13/1910/13/2023 XR, finge r(s), 2 or more view http:/ /[email or web address] ?Encry pted=s hAaTro YD8dLq bEUv6g %2BXZw aYqtaq 0bqfl% 2Fg9IQ a4ajBk vP9nXo QUaueC m3YtLR FvZlgJ JJ8mAn HZtai3 7j0323 AC0KoY nSCVKr eUC8mr 84%3D INTERFACE [facility] [address], [place], [address], 10/13/2023 10:23:22 10/13/19 24 10/13/2023 XR, finge r(s), 2 or more view http:/ [email or web address] ?Encry pted=s hAaTro YD8dLq bEUv6g %2BXZw aYqtaq 0bqfl% 2Fg9IQ a4ajBk vP9nXo QUaueC m3YtLR [facility] J8[facility] Hospitaltai[facility] 4n7745 AC0KoY nSCVKr eUC8mr 84%3D INTERFACE [facility] [address], [place], [address], 10/13/2023 10:23:24 10/29/19 24 01/27/2019 imagi ng/di agnos tic resul t No observ ation record ed. [email or web address] Not Available 10/01 02:16:53 10/29/19 24 02/10/2019 imagi ng/di agnos tic resul t No observ ation record ed. [email or web address] Not Available 10/01 02:16:55 10/29/1901/27/2019 imagi ng/di agnos tic resul t No observ ation record ed. [email or web address] Not Available 10/01 02:16:58 Result Notes None recorded. Problems Name Problem SNOMED Code Status Onset Date Resolution Date Notes Provider Name and Address Organization Details Recorded Time Osteoarthri tis of joint of bilateral hands 9005280050336 09 Active 2023 Wilian Tang PA-C [address], [place], [address], [facility] 08:55:16 Problem Notes None recorded. Procedures Surgical History Date Name Laterality Status Provider Name and Address Organization Details Recorded Time 4 Small Joint/Bursa Asp & Inj, Bilateral (medication) completed Wilian Tang PA-C [address] [facility], [place], [address], [facility] 10/13/2023 11:04:07 4 Small Joint/Bursa Asp & Inj, Bilateral (medication) completed Wilian Tang PA-C [address] [facility], [place], [address], [facility] 06/08/2023 13:14:36 Imaging Results Imaging Date Name Status LastModified by Organiz ation Details LastModified Time 10/13/2023 XR, finger(s), 2 or more view completed INTERFACE [facility] [address], [place], [address], 10/13/2023 10:23:22 10/13/2023 XR, finger(s), 2 or more view completed INTERFACE [facility] [address], [place], [address], 10/13/2023 10:23:24 01/27/2019 imaging/diag nostic result completed Information not available 10/29/2023 02:16:53 02/10/2019 imaging/diag nostic result completed Information not available 10/29/2023 02:16:55 01/27/2019 imaging/diag nostic result completed Information not available 10/29/2023 02:16:58 Procedure Notes None recorded. Medical Equipment None Reported. Allergies No known drug allergies Medications Name Sig Start Date Stop Date Status Note LastModified by Organization Details LastModified Time atorvastati n 10 mg tablet active Not Available Not Available Not Available valacyclovi r 1 gram tablet active Not Available Not Available Not Available prochlorper azine maleate 10 mg tablet active Not Available Not Available No t Available Kenalog 40 mg/mL suspension for injection Take 0.8 mL by injection route. 10/12 completed Not Available Not Available Not Available losartan 25 mg tablet active Not Available Not Available No t Available furosemide 20 mg tablet active Not Available Not Available Not Available metoprolol succinate ER 25 mg tablet,exte nded release 24 hr active Not Available Not Available Not Available Vitals Date Recorded Body height Body mass index (BMI) Body weight Provider Name and Address Organization Details Last Updated DateTime 06/08/2023 177.8 cm 30.1 kg/m2 02861.4 g ANATOLIY LOAIZA [facility] 06/08/2023 13:01:22 Date Recorded Body height Body mass index (BMI) Body weight Provider Name and Address Organization Details Last Updated DateTime 10/13/2023 177.8 cm 30.1 kg/m2 27576.4 g GRACIELA FRANK [facility] 10/13/2023 10:15:23 Social History None recorded. Functional Status None recorded. Mental Status None recorded. Family History Nothing Reported. Medical History No medical history recorded. Past Encounters Encounter ID Performer Location Encounter Start Date Encounter Closed Date Diagnosis/Indication Diagnosis SNOMED-CT Code Diagnosis ICD10 Code Diagnosis Note [id number] [facility] [address] [place] [address] 06/08/2023 12:37:42 06/30/2023 08:25:46 Osteoarthritis of joint of bilateral hands 9620336003 88882 M19.041 M19.125 [id number] [facility] [address] [place] [address] 10/13/2023 10:06:10 11/09/2023 07:15:35 Osteoarthritis of joint of bilateral hands 6870086017 86473 M19.041 M19.042 Health Concerns Section Related Observation LastModified by Organization Detai ls LastModified Time None Recorded Concern Status LastModified by Organization Details LastModified Time None Recorded Advance Directives Directive None Recorded Payers Encounter Date Sequence Insurance Name Policy Number Policy Carter Covered Member ID Carter Member ID Guarantor Name 06/08/2023 1 [facility] (MEDICARE REPLACEMENT/A DVANTAGE - PPO) [id number] Ellis Magana [id number] Ellis Magana 10/13/2023 1 [facility] (MEDICARE REPLACEMENT/A DVANTAGE - PPO) [id number] Ellis Magana [id number] Ellis Magana Notes Date Note Type Note Provider Name and Address Organization Details Recorded Time 06/08/2023 text/html I am seeing this patient under the supervision of Dr. Cedeño who was available but who did not see the patient Chief Complaint: Follow-up evaluation for bilateral long finger MP joint osteoarthritis 68-year-old male returns today in follow-up. He was last seen in September 2022 where he received cortisone injections of the MP joints of bilateral long fingers. He reports some modest improvements in his pain. He returns today in follow-up Wilian Tang PA-C [address], [place], [address], [facility] 06/08/2023 13:16:56 10/13/2023 text/html I am seeing this patient under the supervision of Dr. Cedeño who was available but who did not see the patient Chief Complaint: Follow-up evaluation for bilateral long finger MP joint osteoarthritis HPI: 68-year-old male returns today in follow-up status post bilateral long finger MP joint cortisone injections. He notes return of pain after installing a sidewalk about the long finger MP joints of both hands, right side worse than left. No distinct trauma. He returns today in follow-up Wilian Tang PA-C [address], [place], [address], [facility] 10/13/2023 11:06:05
--- OUTSIDE RECORDS SUMMARY | 2024-07-12 12:14 | XMS_ITS | Clinical Summary ---
Author Organization [facility] Address [address] [place] [address] Care Team Providers Care Supervisor Pigment Making Name Role Phone Ellis Prince MD Primary Care Provider [phone] Allergies Active Allergy Reactions Criticality Noted Date [...] age to complete this topic Care Teams Supervisor Pigment Making Relationship Specialty Start Date End Date Ellis Prince MD [address] [facility], [address] [place] [address] PCP - General Water Quality Analyst 03/18/21
--- OUTSIDE RECORDS SUMMARY | 2024-07-12 12:14 | XMS_ITS | Encounter Summary ---
Author Organization [facility] Address [address] [place] [address] Care Team Providers Care Cigarette Making Machine Operator Name Role Phone Myra Martinez Primary Care P rovider Reason for Visit * Reason Comments Follow-up Encounter Details Date Type Department Care Team (Late st Contact Info) Description 07/06/2024 11:20 AM EDT Consult [facility] [address] [place] [phone] Aidan Barcenas MD [address] [place] [address] [address] [place] [address] Claudication of both lower extremities (CMS/HCC V24) (Primary Dx) Social History Tobacco Use Types Packs/Day Years [...] PM EDT documented as of this encounter Last Filed Vital Signs Vital Sign Reading [...] Mass Index 30.99 07/06/2024 11:23 AM EDT documented in this encounter Progress Notes * Aidan Barcenas MD - 07/06/2024 11:20 AM EDT Images from the original note were not included. [facility] PCP: CULLEN Avelar HPI: History of Present Illness The patient presents for evaluation of leg pain. He reports experiencing bilateral leg pain, with the left leg being more affected than the right. The pain is particularly noticeable when he attempts to stand after prolonged sitting, necessitating a brief pause before he can walk. He describes a sensation of muscle weakness and has observed significant muscle loss. Additionally, he experiences a sensation of his muscles locking up during ambulation, requiring considerable effort to initiate movement. An ultrasound of his legs in 04/2024 did not reveal any significant findings. A recent CT scan with contrast was performed due to his leg symptoms. He suspects that his leg pain may be related to his back issues or a potential circulatory problem. He has a history of back issues, having undergone three surgeries, the most recent of which involved the placement of rods and screws to stabilize slipping vertebrae. He has a history of atrial fibrillation but has not experienced any recent episodes. In 03/2024, his Apple watch alerted him to an episode of atrial fibrillation during sleep, prompting a visit to the emergency room where an EKG confirmed the diagnosis. He was initiated on Eliquis at that time. He believes this episode may have been triggered by a supplement containing berberine, which he has since discontinued. He continues to take Eliquis. He also reports knee pain, which was unresponsive to gel injections administered in 04/2024. PAST SURGICAL HISTORY: Three back surgeries, the most recent in 04/2019 involving the placement of rods and screws to stabilize slipping vertebrae. Results Imaging - Echocardiogram: 2022, Good heart function, mild leakiness of the aortic valve, mild leakage in the mitral valve, and a slightly dilated aorta. - Ultrasound of legs: 04/2024, No significant blockage. - CT scan with contrast of legs: No significant blockage and good blood flow. ACTIVE MEDICATIONS: Outpatient Medications Marked as Taking for the 07/06/24 encounter (Consult) with Aidan Barcenas MD Medication Sig Dispense Refill apixaban (ELIQUIS) 5 mg tablet Take 1 tablet (5 mg total) by mouth 2 (two) times a day. 180 tablet 1 ascorbic acid (VITAMIN C) 500 mg chewable tablet Take 500 mg by mouth daily. ASHWAGANDHA EXTRACT ORAL Take by mouth. atorvastatin (LIPITOR) 40 mg tablet Take 1 tablet (40 mg total) by mouth 1 (one) time each day. 90 each 3 cholecalciferol (VITAMIN D-3) 50 mcg (2,000 unit) tablet Take 1 tablet (2,000 Units total) by mouth1 (one) time each day. furosemide (LASIX) 20 mg tablet Take 1 tablet (20 mg total) by mouth 1 (one) time each day if needed. losartan (COZAAR) 25 mg tablet TAKE 1 TABLET BY MOUTH DAILY 90 tablet 1 MAGNESIUM CITRATE ORAL Take 1 tablet by mouth 1 (one) time each day. metoprolol succinate (TOPROL-XL) 25 mg 24 hr tablet TAKE 1 TABLET BY MOUTH DAILY 90 tablet 3 multivitamin with minerals tablet Take 1 tablet by mouth 1 (one) time each day. plant stanol fabiano (CHOLEST OFF ORAL) Take by mouth. traMADoL (ULTRAM) 50 mg tablet Take by mouth. valacyclovir HCl (VALACYCLOVIR ORAL) Take by mouth as needed. vitamin B complex/folic acid (B COMPLEX 100 ORAL) Take 1 Tablet by mouth daily. ZINC ORAL Take by mouth. PAST MEDICAL HISTORY: Patient Active Problem List Diagnosis Coronary artery disease Left inguinal pain Nonischemic cardiomyopathy (CMS/HCC V24, CMS/HCC V28) Nonrheumatic aortic (valve) insufficiency ELIO (obstructive sleep apnea) Recurrent left inguinal hernia Shortness of breath Thoracic aortic aneurysm without rupture (CMS/HCC V24) Vertigo Paroxysmal atrial fibrillation (CMS/HCC V24, CMS/HCC V28) Pure hypercholesterolemia ALLERGIES: Allergies Allergen Reactions Doxycycline Other reaction(s): Peeling of skin Lisinopril FAMILY HISTORY: Family History Problem Relation Name Age of Onset Diabetes Father Other (Other: heart disease) Father Other (Other: lymphoma) Mother SOCIAL HISTORY: Social History Tobacco Use Smoking status: Former Smokeless tobacco: Never Substance Use Topics Alcohol use: Yes Comment: a glass of wine with dinner REVIEW OF SYSTEM: Constitutional: No appetite Loss, chills, dizziness, fever, night Sweats Eyes: Denies blurred vision, discharge, eye irritation, spots in vision, vision loss Head and Neck: Denies any headache, neck pain Ears, Nose, Mouth, Throat: No issues Cardiovascular: Denies chest pain/pressure, claudication, irregular heart beat, orthopnea, palpitations, syncope Respiratory: Denies cough, hemoptysis, SOB, sputum production, wheezing Gastrointestinal: Denies any abdominal distention, pain, black stools, diarrhea, dysphagia, vomiting Genitourinary: Denies dysuria, flank pain Musculoskeletal: Denies any joint pain or swelling other than mention in HPI Integumentary: Denie any skin rash or ulcer, pruritus Neurological: Denies any abnormal gait or focal weakness, headache, numbness, seizures, slurred speech Psychiatric: Denies any delusions, emotional problems, homicidalideation, suicidal ideation Hematologic: Denies any bleeding tendency, hemorrhage PHYSICAL EXAM: Vitals: 07/06/24 1123 BP: 118/68 BP Location: Left arm Patient Position: Sitting BP Cuff Size: Adult Pulse: 62 SpO2: 98% Weight: 98 kg (216 lb) Height: 1.778 m (70 ) Appearance: No Acute Distress, Alert Head Exam: Normocephalic and Atraumatic Eyes: Mild Palor, Sclera Anicteric, PERRL, EOMI Neck: Supple, Non-tender, No carotid bruit, thyromegaly or lymphadenopathy Pulmonary: No Accessory Muscle Use, clear to auscultate bilaterally Cardiovascular: JVD/Rhythm/Heart Sound/Added sound-S1 and S2 regular rate and rhythm, no murmur, nogallop or rub Abdominal Inspection: Normal, Soft, Non-tender, Bowel Sounds Present, No Hepatosplenomegaly Rectal Exam: Deferred Extremity: Peripheral Pulses are palpable and symmetrical, no leg edema Musculoskeletal: No obvious joint pain, swelling or deformity Skin: Skin Color Normal, No rash or visible ulcer on limited examination Hematological: No lymphadenopathy or mass Psychiatry: anxiety +, no delusion EKG: Encounter Date: 04/04/24 ECG 12 lead Result Value Ventricular Rate ECG 62 Atrial Rate 62 P-R Interval 198 QRS Duration 98 Q-T Interval 428 QTc 434 P Wave Rusk 76 R Rusk 9 T Rusk -31 ECG Interpretation Normal sinus rhythm ST and T wave abnormality, consider lateral ischemia Abnormal ECG When compared with ECG of 26-APR-2015 16:45, Inverted T waves have replaced nonspecific T wave abnormality in Lateral leads Confirmed by DONTRELL SYLVESTER ([id number]) on 04/04/2024 9:31:47 AM *Note: Due to a large number of results and/or encounters for the requested time period, some results have not been displayed. A complete set of results can be found in Results Review. TESTING: No results found for: CBCDIF , BMP , PCTLIPID , TSH , BNP PROBLEM LIST: No diagnosis found. ASSESSMENT/PLAN: Assessment & Plan 1. Bilateral leg pain - Unlikely due to arterial blockage (normal pulses, satisfactory blood flow on ultrasound and CT scan) - Liang's cyst does not account for widespread leg pain - Symptoms do not align with claudication - Possible back or nerve problems - Referral to neurologist or sales enablement specialist for further evaluation of potential nerve impingementor muscle disease 2. Atrial fibrillation - Confirmed in March 2024 - No recent episodes since discontinuing supplement containing berberine - Currently on Eliquis 3. 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 The [facility] team will continue to co-manage this patient following the plan of care as established by my initial visit and as per AHA guidelines for ongoing management and surveillance of Vascular Disease This will include medication titration, initiation of appropriate medications and further titration, and diagnostic studies to manage this disease process. documented in this encounter Plan of Treatment Upcoming Encounters Date Type Department Care Team (Late st Contact Info) Description 10/03/2024 9:00 AM EDT Ancillary Procedure [facility] - [address] [place] [address] 10/24/2024 10:10 AM EDT Office Visit [facility] [place] [address] [place] [address] Jeronimo Stiles NP [address] [place] [address] [address] [place] [address] documented as of this encounter Visit Diagnoses Diagnosis Claudication of both lower extremities (CMS/[facility] V24)- Primary documented in this encounter Historical Medications * This list may reflect changes made after this encounter. traMADoL (ULTRAM) 50 mg tablet Take by mouth. added in this encounter Care Teams Cigarette Making Machine Operator Relationship Specialty Start Date End Date Myra Martinez PA [address] [place] [address] PCP - General 04/03/24 documented as of this encounter
== END 2024-07-12 12:51 | disposition home or self-care (01) ==
LOC: HO.HOS 11:10
PROVIDERS: Visit Provider Orthopaedic Surgery
DX: M19.041 Primary osteoarthritis, right hand (principal); M19.042 Primary osteoarthritis, left hand
CPT/HCPCS: 20600; 77002; 99213

== ENCOUNTER → 2024-07-12 11:48 | Outpatient (BNV) | payer MEDICARE, SELFPAY | PROVIDERS: Visit Provider Radiology Diagnostic Radiology | DX: M19.041 Primary osteoarthritis, right hand (principal) | CPT/HCPCS: 77002 ==

== ENCOUNTER 2024-11-14 09:35 | Outpatient (AMB) | payer MEDICARE, SELFPAY ==
--- OUTSIDE RECORDS SUMMARY | 2010-01-13 01:00 | XMS_ITS | Encounter Summary ---
Author Organization [facility] Address [address] [place] [address] Phone Care Team Providers Care Certified Pest Control Technician Name Role Phone Unavailable Primary Care Provider Unavailabl e Encounter Details Date Type Department Care Team (Late st Contact Info) Description 01/13/2010 Hospital Encounter [facility] General Imaging [address] [place] [address] Thiago Washington MD [address] [place] [address] [email or web address] Social History Tobacco Use Types Packs/Day Years [...] (No Interpretation) (01/13/2010 12:00 AM EST) Narrative [facility] IMG INTERFACES - 02/21/2019 2:53 PM EST This study is for PACS storage only and not for interpretation. us Thiago Washington MD IMG OUTSIDE IMAGING W/OUT INTE RPRETATION Final Result [facility] documented in this encounter Visit Diagnoses Not on filedocumented in this encounter Additional Source Comments The information contained in this document represents components of the legal health record. It is not the complete legal health record.[facility]
--- OUTSIDE RECORDS SUMMARY | 2010-01-13 01:05 | XMS_ITS | Encounter Summary ---
Author Organization [facility] Address [address] [place] [address] Phone Care Team Providers Care Administrator Of Home Health Name Role Phone Unavailable Primary Care Provider Unavailabl e Encounter Details Date Type Department Care Team (Late st Contact Info) Description 01/13/2010 12:05 AM EST Hospital Encounter [facility] Imaging [address] [place] [address] Thiago Washington MD [facility] [place] [address] [email or web address] Social History Tobacco Use Types Packs/Day [...] (No Interpretation) (01/13/2010 12:05 AM EST) Narrative [facility] IMG INTERFACES - 02/21/2019 2:54 PM EST This study is for PACS storage only and not for interpretation. us Thiago Washington MD IMG OUTSIDE IMAGING W/OUT INTE RPRETATION Final Result [facility] IMG INTERFACES documented in this encounter Visit Diagnoses Not on filedocumented in this encounter Additional Source Comments The information contained in this document represents components of the legal health record. It is not the complete legal health record.[facility]
--- OUTSIDE RECORDS SUMMARY | 2010-01-13 01:10 | XMS_ITS | Encounter Summary ---
Author Organization [facility] Address [address] [place] [address] Phone Care Team Providers Care Rug Receiving Clerk Name Role Phone Unavailable Primary Care Provider Unavailabl e Encounter Details Date Type Department Care Team (Late st Contact Info) Description 01/13/2010 12:10 AM EST Hospital Encounter [facility] Imaging [address] [place] [address] Thiago Washington MD [facility] [place] [address] [email or web address] Social History Tobacco Use Types Packs/Day Years [...] (No Interpretation) (01/13/2010 12:10 AM EST) Narrative [facility]G INTERFACES - 02/21/2019 2:55 PM EST This study is for PACS storage only and not for interpretation. us Thiago Washington MD IMG OUTSIDE IMAGING W/OUT INTE RPRETATION Final Result [facility]G INTERFACES documented in this encounter Visit Diagnoses Not on filedocumented in this encounter Additional Source Comments The information contained in this document represents components of the legal health record. It is not the complete legal health record.[facility]
--- OUTSIDE RECORDS SUMMARY | 2011-03-10 01:00 | XMS_ITS | Encounter Summary ---
Author Organization [facility] General [facility] Address [address] [place] [address] Phone Care Team Providers Care Heel Seat Laster Name Role Phone Unavailable Primary Care Provider Unavailabl e Encounter Details Date Type Department Care Team (Late st Contact Info) Description 03/10/2011 Hospital Encounter [facility] Imaging [address] [place] [address] Thiago Washington MD [address] [place] [address] [email or web address] Social History Tobacco Use Types Packs/Day [...] (No Interpretation) (03/10/2011 12:00 AM EST) Narrative [facility] IMG INTERFACES - 02/21/2019 2:56 PM EST This study is for PACS storage only and not for interpretation. us Thiago Washington MD IMG OUTSIDE IMAGING W/OUT INTE RPRETATION Final Result [facility] documented in this encounter Visit Diagnoses Not on filedocumented in this encounter Additional Source Comments The information contained in this document represents components of the legal health record. It is not the complete legal health record.[facility]
--- OUTSIDE RECORDS SUMMARY | 2012-04-14 01:00 | XMS_ITS | Encounter Summary ---
Author Organization [facility] Address [address] [address] Phone Care Team Providers Care Senior Fund Accountant Name Role Phone Unavailable Primary Care Provider Unavailabl e Encounter Details Date Type Department Care Team (Late st Contact Info) Description 04/14/2012 Hospital Encounter [facility] General Imaging [address] [place] [address] Thiago Washington MD [address] [place] [address] [email or web address] Social History Tobacco Use Types Packs/Day Years [...] (No Interpretation) (04/14/2012 12:00 AM EST) Narrative [facility] IMG INTERFACES - 02/21/2019 2:54 PM EST This study is for PACS storage only and not for interpretation. us Thiago Washington MD IMG OUTSIDE IMAGING W/OUT INTE RPRETATION Final Result [facility] documented in this encounter Visit Diagnoses Not on filedocumented in this encounter Additional Source Comments The information contained in this document represents components of the legal health record. It is not the complete legal health record.[facility]
--- NOTE | 2024-11-14 10:05 | MHC.OFFVIS ---
Vital Signs 11/14/24 10:15 Height 5 ft 10 in Weight 214 lb BMI 30.7 Intake Visit Reasons: Thiago middle finger MCP inj w/ c-arm Intake Note: Ellis 69 yr old right hand dominant male presents today for for repeat injection of bilateral middle fingers. Last injection was from 07/12/24 help relieve pain and would like to repeat injections today. Allergies No Known Allergies Allergy (Verified 11/14/24 10:15) HPI HPI Thiago middle finger MCP inj w/ c-arm: Details: Ellis is a 69 year old right hand dominant man who returns for his bilateral hand OA. He was last seen and received bilateral middle finger injections on 07/12/24, with good relief. He complains of pain in his bilateral hands. Primarily he complains of pain in his middle finger MCP joints, L>R. He says he has difficulty with gripping and use of his hands. He also feels limited in his finger ROM, particularly in extension. He says he has not been making a full fist recently He says he used to receive annual middle finger MCP joint injections at [facility] for the last several years. He is retired but has been active with yard renovations, including moving heavy rocks & other materials. [facility] Medical History (Updated 07/04/24 @ 11:38 by CULLEN Márquez) Arthritis of both hands Social History Alcohol intake: current Alcohol type: wine Comment: a glass of wine with dinner Patient Tobacco Use Status: Never used Tobacco Current occupational status: retired Current occupation: right handed Physical Exam Vital Signs: BMI result Body Mass Index 30.7 Extrem Other: Evaluation of Bilateral Upper Extremity: The patient is alert, oriented, and in no acute distress Neuro: Median, Ulnar, Radial nerves motor and sensory intact and sensation is normal to the tips of all digits Vascular: Cap refill brisk ROM: He can bring his fingers closed to a fist and back into extension, with encouragement No locking & catching He was tender over the volar aspect of the MCP joints, and thus the A1 pulleys also of the middle finger MCP joints bilaterally. Tender over the dorsal & palmar aspects of the 3rd MCP joints, L>R Enlargement of the 3rd MCP joints bilaterally Radiographs: 3 views of the bilateral hands from 5/6/25 were reviewed by me today in clinic. They show bilateral, R>L, 3rd MCP joint osteoarthritis, with joint space narrowing Office Procedures AMB Fracture Care Details: No fracture, injections 89309 x 2, and also 22056 x 2 for use of the mini C-arm for needle placement Fracture Billing Code: Fracture Billing Code Assessment & Plan Assessment & Plan (1) Arthritis of both hands: Code(s): M19.041 - Primary osteoarthritis, right hand; M19.042 - Primary osteoarthritis, left hand Category: Medical Plan Assessment & Plan: 1. 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 He has been very active with planting and laying cobblestone, and I encouraged him to relax for at least 1-2 weeks following his injections to allow them to start working. He is in agreement. He should work on ROM exercises, and avoid any gripping or strengthening activities I discussed the use of assistive devices for daily activity Injection #1: The risks and benefits of a steroid injection including but not limited to risk of damage to blood vessels, nerve, tendon, infection, skin bleaching, persistent or worsening pain, and failure to improve symptoms were discussed with the patient and they wish to proceed with the steroid injection. Once consent was obtained the skin over the dorsum of the Right 3rd MCP joint was sterilely prepped. The joint was then injected with a combination of 1 mL of dexamethasone (4mg/ml) and 0.5% plain Lidocaine, using the mini C-arm for needle guidance. The patient appears to have tolerated the procedure well and with no complications. He had good early relief before leaving clinic today. He knows that they may not have another steroid injection into this joint for least 4 months. Injection #2: The risks and benefits of a steroid injection including but not limited to risk of damage to blood vessels, nerve, tendon, infection, skin bleaching, persistent or worsening pain, and failure to improve symptoms were discussed with the patient and they wish to proceed with the steroid injection. Once consent was obtained the skin over the dorsum of the Left 3rd MCP joint was sterilely prepped. The joint was then injected with a combination of 1 mL of dexamethasone (4mg/ml) and 0.5% plain Lidocaine, using the mini C-arm for needle guidance. The patient appears to have tolerated the procedure well and with no complications. He had good early relief before leaving clinic today. He knows that they may not have another steroid injection into this joint for least 4 months. He will follow up prn Scribed for Alisha Reeves MD by Bernardo Ellis, general medical practitioner, on 11/14/24 at 10:15 AM, EST. Orders: Orders FL guided needle placement Today M19.041 - Primary osteoarthritis, right hand, M19.042 - Primary osteoarthritis, left hand Coding Level of Care Code Est Pt Level 3 (67365) Diagnoses Arthritis of both hands M19.041; M19.042 CPT Codes Fracture Care - Fracture Billing Code: Fracture Billing Code ([id number])
[2024-11-14 10:15] VITALS: BMI 30.7
--- OUTSIDE RECORDS SUMMARY | 2024-11-14 12:11 | XMS_ITS | Encounter Summary ---
Author Organization [facility] Address [facility] [employer] [address] [address] Phone Care Team Providers Care Chummer Name Role Phone Ellis Prince MD Primary Care Provider [phone] Thiago Hunt MD Unavailable [phone] Encounter Details Date Type Department Care Team (Late st Contact Info) Description 05/21/2020 Procedure Pass [facility], [address] [address] Social History Tobacco Use Types Packs/Day Years Used Date Smoking Tobacco: Never Smokeless Tobacco: Never Alcohol Use Standard Drinks/Week Comments Yes 7 (1 standard drink = 0.6 oz pur e alcohol) Sex and Gender Information Value Date Recorded Sex Assigned at Male 03/16/2019 5:27 PM EST Legal Sex Male 6:25 PM EST Gender Identity Male 03/16/2019 5:27 PM EST Sexual Orientation Straight 03/16/2019 5: 27 PM EST documented as of this encounter Plan of Treatment Not on file documented as of this encounter Visit Diagnoses Not on filedocumented in this encounter Care Teams Chummer Relationship Specialty Start Date End Date Ellis Prince MD [address] [place] [address] PCP - General Internal Medicine 03/16/19 Thiago Hunt MD [address] [place] [address] Remote Ruby On Rails Developer Cardiology 03/27/19 documented as of this encounter Additional Source Comments The information contained in this document represents components of the legal health record. It is not the complete legal health record.[facility]
--- OUTSIDE RECORDS SUMMARY | 2024-11-14 12:11 | XMS_ITS | Encounter Summary ---
Author Organization [facility] Address [address] [address] Phone Care Team Providers Care Kiln Door Builder Name Role Phone Ellis Prince MD Primary Care Provider Thiago Hunt MD Unavailable [phone] Encounter Details Date Type Department Care Team (Late st Contact Info) Description 06/17/2020 Ancillary Orders [facility],Outside Imaging [address] [place], [place] [id number] System, Provider Not In, [facility] [address] [address] Social History Tobacco Use Types Packs/Day Years [...] on file documented as of this encounter Results * MRI Spine (Bone) Outside (No Interpretation) (01/27/2019 12:00 AM EST) Narrative SYSTEMGENERATED, DOCUMENTATION - 06/17/2020 11:55 AM EDT This study is for PACS storage only and not for interpretation. us Provider Not In System PhD IMG OUTSIDE IMAGING W /OUT INTERPRETATION Final Result documented in this encounter Visit Diagnoses Not on filedocumented in this encounter Care Teams Kiln Door Builder Relationship Specialty Start Date End Date Ellis Prince MD [address] [place] [address] PCP - General Internal Medicine 03/16/19 Thiago Hunt MD [address] [place] [address] Cinema Or Theatre Manager Cardiology 03/27/19 documented as of this encounter Additional Source Comments The information contained in this document represents components of the legal health record. It is not the complete legal health record.[facility]
--- OUTSIDE RECORDS SUMMARY | 2024-11-14 12:12 | XMS_ITS | Clinical Summary ---
Author Organization [facility] [employer] Address [address] [facility] [address] Phone Care Team Providers Care Commercial Shrimping Captain Name Role Phone Myra Martinez Primary Care [...] Diagnosed Date Claudication of both lower extremities ([facility] V24) 07/06/2024 Pure hypercholesterolemia 04/04/2024 Assessment & Plan (10/24/2024 11:49 AM EDT): Continue with atorvastatin. Assessment & Plan (04/04/2024 12:30 PM EST): LDL in90's on atorvastatin 10 mg. Will increase to 40 mg a day. Paroxysmal atrial fibrillation (CMS/[facility] V24, CMS /[facility] V28) 04/02/2024 Assessment & Plan (10/24/2024 11:49 AM EDT): Paroxysmal atrial fibrillation. CHADSVASc - 4. Continue with metoprolol and apixaban. Orders: ECG 12 lead Assessment & Plan (04/04/2024 12:26 PM EST): Suspect contribution of untreated sleep apnea. Patient had abnl sleep study a year ago and has not yet had device therapy!!! Possible trigger was berberine as part of vessel health supplement . Negative 48 hr holter. Continue eliquis for at least 6 months and use enosiX for monitoring for now. Orders: ECG 12 lead Transthoracic echocardiogram (TTE) complete with PRN contrast, bubble, strain, and 3D order panel; Future Coronary artery disease 01/31/2024 Overview (10/24/2024): 2009 angiogram showed no significant coronary artery disease Assessment & Plan (10/24/2024 11:49 AM EDT): No significant coronary artery disease. No angina. Continue with apixaban, metoprolol, losartan and atorvastatin. We discussed risk reduction through lifestyle choices including healthy diet, routine exercise and weight management. Orders: ECG 12 lead Left inguinal pain 01/31/2024 Recurrent left inguinal hernia 01/31/2024 Vertigo 08/27/2022 Nonischemic cardiomyopathy (CMS/HCC V24, CMS/HCC V28) 08/08/2020 Overview (10/24/2024): 2009 normal coronary anatomy on angiogram June 2016 normal stress echocardiogram 10/03/24 TRANSTHORACIC ECHOCARDIOGRAM (TTE) COMPLETE (CONTRAST/BUBBLE/3D PRN) 10/04/2024 10/03/2024 Interpretation Summary The left ventricle is dilated. There is global hypokinesis. EF in the range of 40% .Grade 2 diastolic dysfunction Left atrium is dialted RV size and function is normal. RA is normal Possible bicuspid aortic valve with mild to moderate eccentric insufficiency. Dilated aorta at the sinuses of Valsalva 4.2 cm . Dilated ascending aorta 4.5 cm No significant change from 10/01/2022 Signed by: Mike Bustamante MD on 10/04/2024 11:19 AM Assessment & Plan (10/24/2024 11:49 AM EDT): Echocardiogram from 2024 showed mildly reduced LV systolic function LVEF 40%. He appears compensated on exam and asymptomatic. Continue with losartan, furosemide prn and metoprolol. Consider adding SGLT2 inhibitor. We reviewed heart failure management including low-sodium diet, symptom surveillance, daily weights and medication compliance. The patient is aware they may take extra diuretic for intermittent evidence of mild congestive signs and symptoms. If the increase of frequency of as needed diuretic becomes more regular than they will make our office aware. If the patient has weight gain over 3lbs in one day or 5lbs over several days, they are aware to contact our office. With any severe or sustained symptoms, they are aware to contact EMS via 911 and go to the emergency room. Assessment & Plan (04/04/2024 12:26 PM EST): EF has improved. Will update echo. Orders: ECG 12 lead ELIO (obstructive sleep apnea) 08/08/2020 Thoracic aortic aneurysm without rupture (CMS/HC C V24) 08/08/2020 Assessment & Plan (10/24/2024 11:49 AM EDT): 4.5 cm by last echocardiogram in 2024. Continue to monitor by echocardiogram as per ACC standards and as clinically indicated. Continue with good blood pressure control with metoprolol and losartan. Assessment & Plan (04/04/2024 12:26 PM EST): [...] Encounters Date Type Department Care Team Description 10/27/2024 Telephone [facility] Cardiology [facility] [address] [place] [address] Jeronimo Stiles NP 10/24/2024 10:10 AM EDT Office Visit [facility] Cardiology [facility] [address] [place] [address] Jeronimo Stiles NP Paroxysmal atrial fibrillation (CMS/HCC V24, CMS/HCC V28) (Primary Dx); Coronary artery disease, unspecified vessel or lesion type, unspecified whether angina present, unspecified whether hamilton or transplanted heart; Nonischemic cardiomyopathy (CMS/HCC V24, CMS/HCC V28); Pure hypercholesterolemia; Aneurysm of ascending aorta without rupture (CMS/HCC V24) 10/12/2024 Telephone [facility] Cardiology [facility] [address] [place] [address] Jeronimo Stiles NP 10/03/2024 9:00 AM EDT Ancillary Procedure [facility] [address] [facility] [address] [place] [id number] Nonrheumatic aortic (valve) insufficiency; Thoracic aortic aneurysm without rupture, unspecified part ([facility] V24); Paroxysmal atrial fibrillation ([facility] V24, [facility] V28) from Last 3 Months Surgical History Surgery [...] Sign Reading Time Taken Comments Blood Pressure 128/68 10/24/2024 10:14 AM EDT Pulse 59 10/24/2024 10:14 AM EDT Temperature - - Respiratory Rate - - Oxygen Saturation 97% 10/24/2024 10:14 AM EDT Inhaled Oxygen Concentration - - Weight 95.5 kg (210 lb 8 oz) 10/24/2024 10:14 AM EDT Height 177.8 cm (5' 10 ) 10/24/2024 10:14 AM EDT Body Mass Index 30.2 10/24/2024 10:14 AM EDT Plan of Treatment Health Maintenance Due Date Last Done Comments DTaP,Tdap,and Td Vaccines (1 - Tdap) 1972 Pneumococcal Vaccine: 50+ Years (1 of 1 - PCV) 2003 RSV Immunization Adult Patients (1 - Risk 60-74 years 1-dose series) 2013 Zoster Vaccines (2 of 3) 02/04/2016 12/10/2015 Abdominal Aortic Aneurysm (AAA) Screen 02/01/2022 Colorectal Cancer Screening: Colonoscopy 02/01/2022 Falls Risk Assessment 02/01/2022 Hepatitis C Screening 02/01/2022 Medicare Annual Wellness Visit 02/01/2022 Social Influencers of Health Screening 02/01/2022 Depression Screening 03/01/2024 COVID-19 Vaccine ( season) 2024 02/19/2021, 06/29/2020, 05/30/2020 Influenza Vaccine (#1) 2024 , 02/08/2019, 01/14/2017, Additional history exists Hypertension/CHF/CAD Annual BMP Blood Test 06/27/2025 06/27/2024, 03/29/2019 Cholesterol Screening (Lipid Panel) 11/10/2029 11/10/2024, 03/31/2024 HIB Vaccines Aged Out No longer [...] Procedure Name Priority Date/Time Associated Diagnosis Comments LIPID PANEL Routine 11/10/2024 9:51 AM EDT Coronary artery disease involving hamilton coronary artery of hamilton heart without angina pectoris ECG 12-LEAD Routine 10/24/2024 11:49 AM EDT Paroxysmal atrial fibrillation (CMS/HCC V24, CMS/HCC V28) Coronary artery disease, unspecified vessel or lesion type, unspecified whether angina present, unspecified whether hamilton or transplanted heart TRANSTHORACIC ECHOCARDIOGRAM (TTE) COMPLETE W/ CONTRAST Routine 10/03/2024 9:37 AM EDT Nonrheumatic aortic (valve) insufficiency Thoracic aortic aneurysm without rupture, unspecified part (CMS/HCC V24) Paroxysmal atrial fibrillation (CMS/HCC V24, CMS/HCC V28) BASIC METABOLIC PANEL Routine 06/27/2024 1:44 PM EDT from Last 3 Months or Most Recently Relevant to Health Maintenance Results * (ABNORMAL) Lipid panel (11/10/2024 9:51 AM EDT) [facility] Cholesterol Total 179 100 - 199 mg/dL [facility] Triglycerides 81 0 - 149 mg/dL [facility] HDL Cholesterol 56 >39 mg/dL [facility] VLDL Cholesterol Calculated 15 5 - 40 mg/dL [facility] LDL Chol Calc (NIH) 108(H) 0 - 99 mg/dL [facility] 1 Blood Venous blood specimen / Unknown 11/10/2024 9:51 AM EDT 11/10/2024 Narrative [facility] - 11/11/2024 1:06 AM EDT Performed at: 01 - [facility] [address] [id number] Manager Document Control: Consuelo Villagomez MD, Phone: [phone] us Thiago Hunt MD LAB BLOOD ORDERABLES Final Res ult [facility] * ECG 12 lead (10/24/2024 11:49 AM EDT) Ventricular Rate ECG 59 BPM GEMUSE Atrial Rate 59 BPM GEMUSE P-R Interval 196 ms GEMUSE QRS Duration 98 ms GEMUSE Q-T Interval 426 ms GEMUSE QTc 421 ms GEMUSE P Wave [place] 72 degrees GEMUSE R [place] -6 degrees GEMUSE T [place] 68 degrees GEMUSE ECG Interpretation Sinus bradycardia Left ventricular hypertrophy with repolarization abnormality Abnormal ECG When compared with ECG of 04-APR-2024 09:21, Nonspecific T wave abnormality, improved in Inferior leads Confirmed by ANGEL GROSS ([id number]) on 11/07/2024 8:57:09 AM GEMUSE 10/24/2024 10:2 4 AM EDT 11/07/2024 8:57 AM EDT us Jeronimo Stiles NP ECG ORDERABLES Edited Resu lt - Final GEMUSE * (ABNORMAL) TRANSTHORACIC ECHOCARDIOGRAM (TTE) COMPLETE W/ CONTRAST (10/03/2024 9:37 AM EDT) LV EDV (A2C) 224 mL CV PACS LV EDV (A4C) 239 mL CV PACS LV Diastolic Volume (BP) 233(A) 62 - 150 mL CV PACS LV ESV (A2C) 121 mL CV PACS LV ESV (A4C) 143 mL CV PACS LV Systolic Volume (BP) 136(A) 21 - 61 mL CV PACS IVSD 0.9 0.6 - 1.0 cm CV PACS LVIDD 6.5(A) 4.2 - 5.8 cm CV PACS LVIDS 4.4(A) 2.5 - 4.0 cm CV PACS LVOT Diameter 2.7 cm CV PACS LVOT Mean Cesar 0.5 m/s CV PACS LVOT Mean Grad 1 mmHg CV PACS LVOT Peak VTI 17.8 cm CV PACS LVOT Peak Cesar 0.7 m/s CV PACS LVOT Peak Gradient 2 mmHg CV PACS LVPWD 1.0 0.6 - 1.0 cm CV PACS MV E' Tissue Velocity Lateral 7 cm/s CV PACS MV E' Tissue Velocity Septal 5 cm/s CV PACS Ejection Fraction (A2C) 46 % CV PACS Ejection Fraction (A4C) 40 % CV PACS Ejection Fraction (BP) 42 % CV PACS LVOT Area 5.7 cm2 CV PACS LVOT Stroke Volume 102 mL CV PACS Left Atrium Minor [place] 6.1 cm CV PACS Left Atrium Major [place] 5.6 cm CV PACS LA Area Sys (A2C) 28 cm2 CV PACS LA Area Sys (A4C) 24 cm2 CV PACS LA Volume (BP) 91 mL CV PACS RA Area 18.2 cm2 CV PACS RA 2D Volume 42 mL CV PACS AV Regurgitation PHT 459 ms CV PACS AR Max Velocity 3.2 m/s CV PACS AV Peak Gradient 41 mmHg CV PACS Aortic Sinus Valsalva 4.2 cm CV PACS Ascending Aorta 4.5 cm CV PACS IVC Proximal 0.9 cm CV PACS IVC Proximal 0.3 cm CV PACS E Wave Deceleration Time 183 119 - 242 ms CV PACS MV Peak A Cesar 0.41 m/s CV PACS MV Peak E Cesar 0.87 m/s CV PACS PV Acceleration Time 134 ms CV PACS PV Acceleration Time 134 ms CV PACS RV Diastolic Basal Dimension 3.6 2.5 - 4.1 cm CV PACS RV S' 13 cm/s CV PACS TAPSE 30 mm CV PACS TR Peak Velocity 2.63 m/s CV PACS TR Peak Gradient 28 mmHg CV PACS E/E' Ratio Septal 17 CV PACS E/E' Ratio Averaged 15 CV PACS Relative Wall Thickness ratio 0.31 CV PACS FS 32 % CV PACS LV Mass 2D 265 g CV PACS LVOT flow 286 mL/s CV PACS E/A Ratio 2.1 CV PACS E/E' Ratio Lateral 12 CV PACS BSA 2.19 m2 CV PACS LV Diastolic Volume Index (BP) 108(A) 34 - 74 mL/m2 CV PACS LV Systolic Volume Index (BP) 63(A) 11 - 31 mL/m2 CV PACS LV EDV Index (A4C) 111 mL/m2 CV PACS LV ESV Index (A4C) 66 mL/m2 CV PACS LV EDV Index (A2C) 104 mL/m2 CV PACS LV ESV Index (A2C) 56 mL/m2 CV PACS LA Volume Index (BP) 42 mL/m2 CV PACS LVIDD Index 3.01 cm/m2 CV PACS LVIDS Index 2.04 cm/m2 CV PACS LV Mass Index 2D 123(A) 50 - 102 g/m2 CV PACS LVOT Stroke Index 47 mL/m2 CV PACS RA 2D Volume Index 19 18 - 32 mL/m2 CV PACS Ascending Aorta Index 2.08 cm/m2 CV PACS Anatomical Region Laterality Modality Ultrasound Narrative 10/04/2024 11:19 AM EDT The left ventricle is dilated. There is global hypokinesis. EF in the range of 40% .Grade 2 diastolic dysfunction Left atrium is dialted RV size and function is normal. RA is normal Possible bicuspid aortic valve with mild to moderate eccentric insufficiency. Dilated aorta at the sinuses of Valsalva 4.2 cm . Dilated ascending aorta 4.5 cm No significant change from 10/01/2022 Left Ventricle Left ventricle cavity size is normal. Wall thickness is normal. Systolic function is mildly decreased with an ejection fraction of 40-45%. There are no regional LV wall motion abnormalities. Mild global LV hypokinesis is present. There is Grade II (moderate) diastolic dysfunction. Contrast used to rule out thrombus. No thrombus noted. Increased trabeculations seen on the contrast images. Right Ventricle Right ventricle cavity appears normal. Systolic function is normal. Left Atrium Left atrium cavity is moderately dilated. Right Atrium Right atrium cavity is normal. IVC/SVC Inferior vena cava structure is normal. RA pressures is estimated to be 3 mmHg (IVC diameter <21 mm and decreases >50% during inspiration). Mitral Valve The leaflets are mildly thickened. 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 There is mild annular calcification. There is trace regurgitation. There is no significant stenosis noted. Tricuspid Valve Tricuspid valve structure is normal. There is trace regurgitation. Tricuspid regurgitation is inadequate for estimation of right ventricular systolic pressure. There is no significant tricuspid valve stenosis. Aortic Valve The aortic valve may be bicuspid. The leaflets are mildly thickened and exhibit normal excursion. There is moderate regurgitation with a eccentrically directed jet. There is no evidence of aortic valve stenosis. Pulmonic Valve The pulmonic valve was not well visualized. No significant pulmonic valve regurgitation. No significant pulmonary valve stenosis noted. Ascending Aorta The Sinus of Valsalva is dilated (4.2 cm). The ascending aorta is dilated (4.5 cm). Pericardium Pericardium appears normal. There is no pericardial effusion. Study Details Overall the study quality was adequate. Definity contrast was given to enhance imaging. Used to rule out thrombus us Thiago Hunt MD CV ECHO PROCEDURES Final Resul t * (ABNORMAL) Basic metabolic panel (06/27/2024 1:44 [...] - 06/28/2024 6:07 PM EDT Performed at: 01 - [facility] [id number] Manager Document Control: Consuelo Villagomez MD, Phone: [phone] us Thiago Hunt MD LAB BLOOD ORDERABLES Final Res ult [facility] 1 from Last 3 Months or Most Recently Relevant to Health Maintenance Insurance [employer] MEDICARE Care Teams Commercial Shrimping Captain Relationship Specialty Start Date End Date Myra Martinez PA [address] [place] [id number] PCP - General 04/03/24
--- OUTSIDE RECORDS SUMMARY | 2024-11-14 12:12 | XMS_ITS | Encounter Summary ---
Author Organization [facility] Address [address] [employer] [facility] [address] [place] [address] Phone Care Team Providers Care Precision Lens Grinder Apprentice Name Role Phone Ellis Prince MD Primary Care Provider [phone] Thiago Hunt MD Unavailable [phone] Encounter Details Date Type Department Care Team (Late st Contact Info) Description 11/28/2019 Procedure Pass [facility] [place] [address] [facility]th [place] [address] Social History Tobacco Use Types Packs/Day Years [...] on filedocumented in this encounter Care Teams Precision Lens Grinder Apprentice Relationship Specialty Start Date End Date Ellis Prince MD [address] [place] [address] PCP - General Internal Medicine 03/16/19 Thiago Hunt MD [address] [place] [address] Preschool Program Director Cardiology 03/27/19 documented as of this encounter Additional Source Comments The information contained in this document represents components of the legal health record. It is not the complete legal health record.[facility]
--- OUTSIDE RECORDS SUMMARY | 2024-11-14 12:12 | XMS_ITS ---
Author Name [facility] Organization Unknown Results Test Name/Text Value Interpretation Date Range Source LAB AP DIAGNOSIS COMMENT Received from [facility], [facility] [address], [place] [address], are one slide and one block labeled [id number] , which are retained for our files. 11/08/2024 [facility] LAB AP CLINICAL INFORMATION Squamous cell carcinoma 11/08/2024 [facility] LAB AP GROSS DESCRIPTION Received in formalin is an irregularly shaped fragment of skin measuring 1.4 x 1.1 x 0.2 cm. The specimen is serially sectioned and submitted entirely in one cassette. (Gross description performed by [facility].) 11/08/2024 [facility] LAB AP CLINICAL INFORMATION Scc; margins requested Normal 02/04/2023 [facility] LAB AP DIAGNOSIS COMMENT Received from [facility], [facility] [address], [address], [place] [address] are two slides and two blocks labeled [id number], which are retained for our files. Normal 02/04/2023 [facility]
--- OUTSIDE RECORDS SUMMARY | 2024-11-14 12:12 | XMS_ITS | Encounter Summary ---
Author Organization [facility] Address [address] [facility] [address] [place] [address] Phone Care Team Providers Care Liaison Inspection Laboratory Assistant Name Role Phone Ellis Prince MD Primary Care Provider [phone] Thiago Hunt MD Unavailable [phone] Encounter Details Date Type Department Care Team (Late st Contact Info) Description 04/12/2019 Procedure Pass [facility] [address] [place] [id number] Social History Tobacco Use Types Packs/Day Years [...] on filedocumented in this encounter Care Teams Liaison Inspection Laboratory Assistant Relationship Specialty Start Date End Date Ellis Prince MD [address] [place] [address] PCP - General Internal Medicine 03/16/19 Thiago Hunt MD [address] [place] [address] Traffic Supervisor Cardiology 03/27/19 documented as of this encounter Additional Source Comments The information contained in this document represents components of the legal health record. It is not the complete legal health record.[facility]
== END 2024-11-14 10:33 | disposition home or self-care (01) ==
LOC: HO.HOS 09:35
PROVIDERS: Visit Provider Orthopaedic Surgery
DX: M19.041 Primary osteoarthritis, right hand (principal); M19.042 Primary osteoarthritis, left hand
CPT/HCPCS: 20600; 99213

== ENCOUNTER 2024-11-14 09:35 | Outpatient (REF) | payer MEDICARE, SELFPAY ==
--- NOTE | ~2024-11-14 | FL_ITS ---
EXAMINATION: FL GUIDANCE ONLY FOR NEEDLE PLACEMENT HISTORY: M19.041 - Primary osteoarthritis, right hand COMPARISON: Correlation is made with plain films of the right hand dated 07/04/2024. TECHNIQUE: Fluoroscopy time: 22.3 seconds. DAP: 8641.4 mGym2 Images: 1. FINDINGS: A single fluoroscopic spot film of a hand demonstrates a needle in the region of the 3rd MCP joint. FL/FL guided needle placement IMPRESSION: Fluoroscopy during procedure. Please see procedure report for additional information. Electronically signed by: Ihsan Fernandez MD 11/14/2024 10:51 AM EDT
== END 2024-11-14 09:36 | disposition home or self-care (01) ==
LOC: HO.HOSX 09:35
PROVIDERS: Visit Provider Orthopaedic Surgery
DX: M19.041 Primary osteoarthritis, right hand (principal); M19.042 Primary osteoarthritis, left hand
CPT/HCPCS: 20600; 77002; 99212; J1100; J2003

== ENCOUNTER → 2024-11-14 10:03 | Outpatient (BNV) | payer MEDICARE, SELFPAY | PROVIDERS: Visit Provider Radiology Diagnostic Radiology | DX: M19.041 Primary osteoarthritis, right hand (principal) | CPT/HCPCS: 77002 ==

== ENCOUNTER 2025-02-15 08:25 | Outpatient (REF) | payer MEDICARE, SELFPAY ==
--- OUTSIDE RECORDS SUMMARY | 2010-01-13 | XMS_ITS | Encounter Summary ---
Author Organization [facility] Address [address] [place] [address] Phone Care Team Providers Care Arch Cushion Press Operator Name Role Phone Unavailable Primary Care Provider Unavailabl e Encounter Details Date Type Department Care Team (Late st Contact Info) Description 01/13/2010 Hospital Encounter [facility] [address] [place] [address] Thiago Washington MD [address] [place] [address] [email or web address] Social History Tobacco Use Types Packs/Day Years Used Date Smoking Tobacco: Never Smokeless Tobacco: Never Alcohol Use Standard Drinks/Week Comments Yes 7 (1 standard drink = 0.6 oz pur e alcohol) Education Answer Date Recorded Are you interested in more education? Not on baldev e 07/04/2022 Are you concerned about learning? Not on file 07/04/2022 No 07/04/2022 No 07/04/2022 Digital Access Answer Date Recorded No 07/25/2022 No 07/25/2022 No 07/25/2022 Reliable internet access at home? Not on file 07/25/2022 Device with a working camera? Not on file Sex and Gender Information Value Date Recorded Sex Assigned at Male 03/16/2019 5:27 PM EST Legal Sex Male 6:25 PM EST Gender Identity Male 03/16/2019 5:27 PM EST Sexual Orientation Straight 03/16/2019 5: 27 PM EST documented as of this encounter Plan of Treatment Not on file documented as of this encounter Procedures Procedure Name Priority Date/Time Associated Diagnosis Comments MRI SPINE MUSCULOSKELETAL FOCUS OUTSIDE (NO INTERPRETATION) Routine 01/13/2010 12:00 AM EST documented in this encounter Results * MRI Spine (Bone) Outside (No Interpretation) (01/13/2010 12:00 AM EST) Narrative [facility] IMG INTERFACES - 02/21/2019 2:53 PM EST This study is for PACS storage only and not for interpretation. us Thiago Washington MD IMG OUTSIDE IMAGING W/OUT INTE RPRETATION Final Result [facility] IMG INTERFACES documented in this encounter Visit Diagnoses Not on filedocumented in this encounter Additional Source Comments The information contained in this document represents components of the legal health record. It is not the complete legal health record.[facility]
--- OUTSIDE RECORDS SUMMARY | 2010-01-13 00:05 | XMS_ITS | Encounter Summary ---
Author Organization [facility] Address [address] [place] [address] Phone Care Team Providers Care Continuous Linter Drier Operator Name Role Phone Unavailable Primary Care Provider Unavailabl e Encounter Details Date Type Department Care Team (Late st Contact Info) Description 01/13/2010 12:05 AM EST Hospital Encounter [facility] General Imaging [address] [place] [address] Thiago Washington MD [address] [place] [address] [email or web address] Social History Tobacco Use Types Packs/Day [...] (No Interpretation) (01/13/2010 12:05 AM EST) Narrative [facility] [place] [place] - 02/21/2019 2:54 PM EST This study is for PACS storage only and not for interpretation. us Thiago Washington MD IMG OUTSIDE IMAGING W/OUT INTE RPRETATION Final Result [facility] documented in this encounter Visit Diagnoses Not on filedocumented in this encounter Additional Source Comments The information contained in this document represents components of the legal health record. It is not the complete legal health record.[facility]
--- OUTSIDE RECORDS SUMMARY | 2010-01-13 00:10 | XMS_ITS | Encounter Summary ---
Author Organization [facility] Address [address] [place] [address] Phone Care Team Providers Care Director Global Intelligence Name Role Phone Unavailable Primary Care Provider Unavailabl e Encounter Details Date Type Department Care Team (Late st Contact Info) Description 01/13/2010 12:10 AM EST Hospital Encounter [facility] General Imaging [address] [place] [address] Thiago Washington MD [address] [place] [address] [email or web address] Social History Tobacco Use Types Packs/Day Years [...] MUSCULOSKELETAL FOCUS OUTSIDE (NO INTERPRETATION) Routine 01/13/2010 12:10 AM EST documented in this encounter Results * MRI Spine (Bone) Outside (No Interpretation) (01/13/2010 12:10 AM EST) Narrative [facility] [place] - 02/21/2019 2:55 PM EST This study is for PACS storage only and not for interpretation. us Thiago Washington MD IMG OUTSIDE IMAGING W/OUT INTE RPRETATION Final Result [facility] documented in this encounter Visit Diagnoses Not on filedocumented in this encounter Additional Source Comments The information contained in this document represents components of the legal health record. It is not the complete legal health record.[facility]
--- OUTSIDE RECORDS SUMMARY | 2011-03-10 | XMS_ITS | Encounter Summary ---
Author Organization [facility] Address [address] [place] [address] Phone Care Team Providers Care Can Filling Machine Operator Name Role Phone Unavailable Primary Care Provider Unavailabl e Encounter Details Date Type Department Care Team (Late st Contact Info) Description 03/10/2011 Hospital Encounter [facility] [address] [place] [address] Thiago Washington MD [address] [place] [address] [email or web address] Social History Tobacco Use Types Packs/Day [...] SPINE MUSCULOSKELETAL FOCUS OUTSIDE (NO INTERPRETATION) Routine 03/10/2011 12:00 AM EST documented in this encounter Results * MRI Spine (Bone) Outside (No Interpretation) (03/10/2011 12:00 AM EST) Narrative [facility] [place] - 02/21/2019 2:56 PM EST This study is for PACS storage only and not for interpretation. us Thiago Washington MD IMG OUTSIDE IMAGING W/OUT INTE RPRETATION Final Result [facility] documented in this encounter Visit Diagnoses Not on filedocumented in this encounter Additional Source Comments The information contained in this document represents components of the legal health record. It is not the complete legal health record.[facility]
--- OUTSIDE RECORDS SUMMARY | 2012-04-14 | XMS_ITS | Encounter Summary ---
Author Organization [facility] Address [address] [place] [address] Phone Care Team Providers Care Pbx Installer Name Role Phone Unavailable Primary Care Provider Unavailabl e Encounter Details Date Type Department Care Team (Late st Contact Info) Description 04/14/2012 Hospital Encounter [facility] [address] [place] [address] Thiago Washington MD [address] [place] [address] [email or web address] Social History Tobacco Use Types [...] (No Interpretation) (04/14/2012 12:00 AM EST) Narrative [facility] IMG INTERFACES - 02/21/2019 2:54 PM EST This study is for PACS storage only and not for interpretation. us Thiago Washington MD IMG OUTSIDE IMAGING W/OUT INTE RPRETATION Final Result [facility] IMG INTERFACES documented in this encounter Visit Diagnoses Not on filedocumented in this encounter Additional Source Comments The information contained in this document represents components of the legal health record. It is not the complete legal health record.[facility]
--- NOTE | ~2025-02-15 | XR_ITS ---
EXAMINATION: XR SHOULDER, RIGHT CLINICAL INFORMATION: M25.511 - Pain in right shoulder COMPARISON: None available. TECHNIQUE: Two views of the right shoulder. FINDINGS: 3 anchors are present in the proximal humerus consistent with prior rotator cuff repair. Osteophytes are present involving humeral head and glenoid margins. There is subchondral sclerosis in the humeral head. There has been resection of distal clavicle. There is no AC joint separation. There is no dislocation of the glenohumeral joint. There are few punctate calcifications projecting in the soft tissues adjacent the superior humeral head. XR/XR shoulder RT min 2V IMPRESSION: Mild to moderate degenerative changes in the glenohumeral joint. Anchors from prior rotator cuff repair. Changes from resection of distal clavicle. Electronically signed by: Ashish Ruiz MD 02/15/2025 11:43 AM [place]
--- NOTE | ~2025-02-15 | XR_ITS ---
EXAMINATION: XR CERVICAL SPINE CLINICAL INFORMATION: M54.2 - Cervicalgia COMPARISON: None available. TECHNIQUE: AP, lateral, atlantoodontoid views and swimmer's projection. FINDINGS: Craniocervical junction is intact. Multilevel marginal osteophyte formation and endplate sclerosis and decreased intervertebral disc height from C3 C7 levels. No gross malalignment. No acute cortical disruption. No lytic or blastic lesions. Focal punctate calcification in soft tissues of the left neck, probably vascular. XR/XR cervical spine 2V IMPRESSION: Multilevel cervical spondylosis C3 C7. Electronically signed by: Cayden Nino MD 02/15/2025 11:42 AM EST
--- OUTSIDE RECORDS SUMMARY | 2025-02-16 08:31 | XMS_ITS | Encounter Summary ---
Author Organization [facility] Address [facility] [employer] [address] [address] Phone Care Team Providers Care Automated Weaver Name Role Phone Ellis Prince MD Primary Care Provider [phone] Thiago Hunt MD Unavailable [phone] Encounter Details Date Type Department Care Team (Late st Contact Info) Description 05/21/2020 Procedure Pass [facility], [address] [address] Social History Tobacco Use Types Packs/Day Years [...] on filedocumented in this encounter Care Teams Automated Weaver Relationship Specialty Start Date End Date Ellis Prince MD [address] [place] [address] PCP - General Internal Medicine 03/16/19 Thiago Hunt MD [address] [place] [address] Plastics Supervisor Cardiology 03/27/19 documented as of this encounter Additional Source Comments The information contained in this document represents components of the legal health record. It is not the complete legal health record.[facility]
--- OUTSIDE RECORDS SUMMARY | 2025-02-16 08:31 | XMS_ITS | Encounter Summary ---
Author Organization [facility] Address [address] [facility] [address] [place] [address] Phone Care Team Providers Care Oil House Attendant Name Role Phone Ellis Prince MD Primary Care Provider [phone] Thiago Hunt MD Unavailable [phone] Encounter Details Date Type Department Care Team (Late st Contact Info) Description 11/28/2019 Procedure Pass [facility] [place] [address] [place] [address] Social History Tobacco Use Types Packs/Day Years [...] on filedocumented in this encounter Care Teams Oil House Attendant Relationship Specialty Start Date End Date Ellis Prince MD [address] [place] [address] PCP - General Internal Medicine 03/16/19 Thiago Hunt MD [address] [place] [address] Home Care Giver Cardiology 03/27/19 documented as of this encounter Additional Source Comments The information contained in this document represents components of the legal health record. It is not the complete legal health record.[facility]
--- OUTSIDE RECORDS SUMMARY | 2025-02-16 08:31 | XMS_ITS | Encounter Summary ---
Author Organization [facility] Address [address] [address] Phone Care Team Providers Care Bag Builder Name Role Phone Ellis Prince MD Primary Care Provider [phone] Thiago Hunt MD Unavailable [phone] Encounter Details Date Type Department Care Team (Late st Contact Info) Description 06/17/2020 Ancillary Orders [facility],Outside Imaging [address] [place], [place] [id number] System, Provider Not In, PhD [facility] [address] [address] Social History Tobacco Use Types Packs/Day Years [...] on filedocumented in this encounter Care Teams Bag Builder Relationship Specialty Start Date End Date Ellis Prince MD [address] [place] [address] PCP - General Internal Medicine 03/16/19 Thiago Hunt MD [address] [place] [address] Cash Application Clerk Cardiology 03/27/19 documented as of this encounter Additional Source Comments The information contained in this document represents components of the legal health record. It is not the complete legal health record.[facility]
--- OUTSIDE RECORDS SUMMARY | 2025-02-16 08:32 | XMS_ITS | Clinical Summary ---
Author Organization [facility] Address [address] [address] Phone Care Team Providers Care 411 Directory Assistance Operator Name Role Phone Ellis Prince MD Primary Care Provider [phone] Thiago Hunt MD Unavailable [phone] Allergies Active Allergy Reactions Criticality Noted Date [...] this topic Medical Devices Implanted Type Area Hog Feeder Device Identifier Shelf Expiration Date Model / Serial / Lot Spine Vikas 5.5x65mm Expedium Titanium Curved Prelordosed Thoracolumbar - [id number] Implanted:Qty: 1 on 04/12/2019 by Thiago Washington MD at [facility] N/A: Spine Lumbar [employer] [id number] / / Screw Bone Spine Single Inner Set Cannulated Polyaxial Titanium - [id number] Implanted:Qty: 6 on 04/12/2019 by Thiago Washington MD at [facility] N/A: Spine Lumbar [employer] [id number] / / Bilateral Hardware Of Shoulders Inguinal With Mesh Screw Bone 5.5x7.0x45.0mm Spine Pedicle Cortical Expedium Polyaxial Titanium - [id number] Implanted:Qty: 4 on 04/12/2019 by Thiago Washington MD at [facility] N/A: Spine Lumbar [employer] [id number] / / Screw Bone 8x40mm Spine Titanium Cortical Fixation - [id number] Implanted:Qty: 2 on 04/12/2019 by Thiago Washington MD at [facility] N/A: Spine Lumbar [employer] [id number] / / Spine Vikas 5.5x75mm Expedium Titanium Curved Prelordosed Thoracolumbar - [id number] Implanted:Qty: 1 on 04/12/2019 by Thiago Washington MD at [facility] N/A: Spine Lumbar [employer] [id number] / / Eit Cellular Titanium Implanted:Qty: 1 on 04/12/2019 by Thiago Washington MD at [facility] N/A: Spine Lumbar [employer]INE 03/31/2023 [id number] / / [id number] Procedures Procedure Name Priority Date/Time Associated Diagnosis Comments BASIC METABOLIC PANEL (BMP) Routine 04/16/2019 6:00 AM EST from Last 3 Months or Most Recently Relevant to Health Maintenance Results * (ABNORMAL) Basic metabolic panel (04/16/2019 6:00 AM EST) SODIUM 136 135 - 145 mmol/L [facility] POTASSIUM 4.2 3.4 - 5.0 mmol/L [facility] CHLORIDE 99 98 - 108 mmol/L [facility] CO2 23 23 - 32 mmol/L [facility] BUN 10 8 - 25 mg/dL [facility] CREATININE 0.84 0.60 - 1.50 mg/dL [facility] GLUCOSE 121(H) 70 - 110 mg/dL [facility] CALCIUM 8.8 8.5 - 10.5 mg/dL [facility] EGFR 92 >59 mL/min/1. 73m2 [facility] Comment:If patient is black, multiply result by 1.159. Estimated glomerular filtration rate calculated using the CKD-EPI equation. ANION GAP 14 3 - 17 mmol/L [facility] Blood 04/16/2019 6:00 AM EST 04/16/2019 6:29 AM EST [address] FLOOR DIRECTOR LAB BLOOD BKR ORDERABLE S Final Result [address] [address] from Last 3 Months or Most Recently Relevant to Health Maintenance Insurance [facility] AAR MEDICARE REPLACEMENT ANDREINA CARBALLO [address] MEDICARE REPLACEMENT ANDREINA CARBALLO [address] MEDIC[address] [place]AC[place] [id number] [place] [id number] MEDICARE REPLACEMENT [facility] MEDICARE REPLACEMENT ANDREINA CARBALLO [place], [place] [facility] MEDICARE REPLACEMENT Advance Directives For more information, please contact: [phone] (9AM - 5PM [facility] System[facility], Wednesday-Wednesday) Documents on File Type Date Recorded Patient Paid Search Marketing Analyst Expl anation Healthcare Proxy 04/21/2019 * Full Code (Presumed) (Latest Code Status on File) Date Activated Date Inactivated Comments 04/12/2019 5:16 PM 04/16/2019 4:02 PM Care Teams 411 Directory Assistance Operator Relationship Specialty Start Date End Date Ellis Prince MD [address] [place] [address] PCP - General Internal Medicine 03/16/19 Thiago Hunt MD [address] [place] [address] Spray Gun Repairer Helper Cardiology 03/27/19 Additional Source Comments The information contained in this document represents components of the legal health record. It is not the complete legal health record.[facility]
--- OUTSIDE RECORDS SUMMARY | 2025-02-16 08:32 | XMS_ITS | Clinical Summary ---
Author Organization [facility] Address [address] [place] [address] Phone Care Team Providers Care Senior Grants Officer Name Role Phone Myra Martinez Primary Care [...] for at least 6 months and use [employer] for monitoring for now. 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 BASIC METABOLIC PANEL [...] AM EDT Performed at: 01 - [facility] [address] [id number] Make Up Operator: Consuelo Villagomez MD, Phone: [phone] us Thiago Hunt MD LAB BLOOD ORDERABLES [...] PM EDT Performed at: 01 - [facility] [address] [id number] Make Up Operator: Consuelo Villagomez MD, Phone: [phone] us Thiago Hunt MD LAB BLOOD ORDERABLES Final Res ult [facility] 1 from Last 3 Months or Most Recently Relevant to Health Maintenance Insurance [facility] [address] Care Teams Senior Grants Officer Relationship Specialty Start Date End Date Myra Martinez PA [address] [address] [facility] - General 04/03/24
--- OUTSIDE RECORDS SUMMARY | 2025-02-16 08:32 | XMS_ITS | Clinical Summary ---
Author Organization [facility] Prior to 07/29/24 Address [address] [place] [address] Care Team Providers Care Sewing Demonstrator Name Role Phone Ellis Prince MD Primary Care Provider [phone] Allergies Active Allergy Reactions Criticality Noted Date [...] age to complete this topic Care Teams Sewing Demonstrator Relationship Specialty Start Date End Date Ellis Prince MD [address] [facility], [address] [place] [address] PCP - General Data Security Administrator 03/18/21
--- OUTSIDE RECORDS SUMMARY | 2025-02-16 08:32 | XMS_ITS | Encounter Summary ---
Author Organization [facility] Address [address] [facility] [address] [place] [address] Phone Care Team Providers Care Comb Machine Operator Name Role Phone Ellis Prince MD Primary Care Provider [phone] Thiago Hunt MD Unavailable [phone] Encounter Details Date Type Department Care Team (Late st Contact Info) Description 04/12/2019 Procedure Pass [facility] PERIOPERATIVE DEPT [address] [place] [id number] Social History Tobacco Use Types Packs/Day [...] on filedocumented in this encounter Care Teams Comb Machine Operator Relationship Specialty Start Date End Date Ellis Prince MD [address] [place] [address] PCP - General Internal Medicine 03/16/19 Thiago Hunt MD [address] [place] [address] Mattress Stuffer Cardiology 03/27/19 documented as of this encounter Additional Source Comments The information contained in this document represents components of the legal health record. It is not the complete legal health record.[facility]
== END 2025-02-15 08:26 | disposition home or self-care (01) ==
LOC: HO.HOSX 08:25
PROVIDERS: Visit Provider Orthopaedic Surgery
DX: M25.511 Pain in right shoulder (principal); M54.2 Cervicalgia
CPT/HCPCS: 72040; 73030

== ENCOUNTER 2025-02-15 11:09 | Outpatient (AMB) | payer MEDICARE, SELFPAY ==
--- OUTSIDE RECORDS SUMMARY | 2010-01-13 | XMS_ITS | Encounter Summary ---
Author Organization [facility] Address [address] [place] [address] Phone Care Team Providers Care Pole Peeling Machine Operator Name Role Phone Unavailable Primary Care Provider Unavailabl e Encounter Details Date Type Department Care Team (Late st Contact Info) Description 01/13/2010 Hospital Encounter [facility] [address] [place] [address] Thiago Washington MD [address] [place] [address] [email or web address] Social History Tobacco Use Types Packs/Day Years [...] (No Interpretation) (01/13/2010 12:00 AM EST) Narrative [facility] IMG INTERFACES - 02/21/2019 2:53 PM EST This study is for PACS storage only and not for interpretation. us Thiago Washington MD IMG OUTSIDE IMAGING W/OUT INTE RPRETATION Final Result [facility] IMG INTERFACES documented in this encounter Visit Diagnoses Not on filedocumented in this encounter Additional Source Comments The information contained in this document represents components of the legal health record. It is not the complete legal health record.[facility]
--- OUTSIDE RECORDS SUMMARY | 2010-01-13 00:05 | XMS_ITS | Encounter Summary ---
Author Organization [facility] Address [address] [place] [address] Phone Care Team Providers Care Channel Marketing Coordinator Name Role Phone Unavailable Primary Care Provider Unavailabl e Encounter Details Date Type Department Care Team (Late st Contact Info) Description 01/13/2010 12:05 AM EST Hospital Encounter [facility] General Imaging [address] [place] [address] Thiago Washington MD [address] [place] [address] [email or web address] Social History Tobacco Use Types Packs/Day [...] MUSCULOSKELETAL FOCUS OUTSIDE (NO INTERPRETATION) Routine 01/13/2010 12:05 AM EST documented in this encounter Results * MRI Spine (Bone) Outside (No Interpretation) (01/13/2010 12:05 AM EST) Narrative [facility] IMG INTERFACES - 02/21/2019 2:54 PM EST This study is for PACS storage only and not for interpretation. us Thiago Washington MD IMG OUTSIDE IMAGING W/OUT INTE RPRETATION Final Result [facility] IMG INTERFACES documented in this encounter Visit Diagnoses Not on filedocumented in this encounter Additional Source Comments The information contained in this document represents components of the legal health record. It is not the complete legal health record.[facility]
--- OUTSIDE RECORDS SUMMARY | 2010-01-13 00:10 | XMS_ITS | Encounter Summary ---
Author Organization [facility] Address [address] [place] [address] Phone Care Team Providers Care Human Resource Assistant Name Role Phone Unavailable Primary Care Provider Unavailabl e Encounter Details Date Type Department Care Team (Late st Contact Info) Description 01/13/2010 12:10 AM EST Hospital Encounter [facility] General Imaging [address] [place] [address] Thiago Washington MD [address] [place] [address] [email or web address] Social History Tobacco Use Types Packs/Day [...] (No Interpretation) (01/13/2010 12:10 AM EST) Narrative [facility] [place] [place] - 02/21/2019 2:55 PM EST This study is for PACS storage only and not for interpretation. us Thiago Washington MD IMG OUTSIDE IMAGING W/OUT INTE RPRETATION Final Result [facility] documented in this encounter Visit Diagnoses Not on filedocumented in this encounter Additional Source Comments The information contained in this document represents components of the legal health record. It is not the complete legal health record.[facility]
--- OUTSIDE RECORDS SUMMARY | 2011-03-10 | XMS_ITS | Encounter Summary ---
Author Organization [facility] Address [address] [place] [address] Phone Care Team Providers Care Tanning Wheel Filler Name Role Phone Unavailable Primary Care Provider Unavailabl e Encounter Details Date Type Department Care Team (Late st Contact Info) Description 03/10/2011 Hospital Encounter [facility] [address] [place] [address] Thiago Washington MD [address] [place] [address] [email or web address] Social History Tobacco Use Types Packs/Day [...] (No Interpretation) (03/10/2011 12:00 AM EST) Narrative [facility] IMG INTERFACES - 02/21/2019 2:56 PM EST This study is for PACS storage only and not for interpretation. us Thiago Washington MD IMG OUTSIDE IMAGING W/OUT INTE RPRETATION Final Result [facility] IMG INTERFACES documented in this encounter Visit Diagnoses Not on filedocumented in this encounter Additional Source Comments The information contained in this document represents components of the legal health record. It is not the complete legal health record.[facility]
--- OUTSIDE RECORDS SUMMARY | 2012-04-14 | XMS_ITS | Encounter Summary ---
Author Organization [facility] Address [address] [place] [address] Phone Care Team Providers Care Labelling Machine Operator Name Role Phone Unavailable Primary Care Provider Unavailabl e Encounter Details Date Type Department Care Team (Late st Contact Info) Description 04/14/2012 Hospital Encounter [facility] [address] [place] [address] Thiago Washington MD [address] [place] [address] [email or web address] Social History Tobacco Use Types [...] SPINE MUSCULOSKELETAL FOCUS OUTSIDE (NO INTERPRETATION) Routine 04/14/2012 12:00 AM EST documented in this encounter Results * MRI Spine (Bone) Outside (No Interpretation) (04/14/2012 12:00 AM EST) Narrative [facility] IMG INTERFACES - 02/21/2019 2:54 PM EST This study is for PACS storage only and not for interpretation. us Thiago Washington MD IMG OUTSIDE IMAGING W/OUT INTE RPRETATION Final Result [facility] IMG INTERFACES documented in this encounter Visit Diagnoses Not on filedocumented in this encounter Additional Source Comments The information contained in this document represents components of the legal health record. It is not the complete legal health record.[facility]
--- NOTE | 2025-02-15 11:11 | A.OFFVIS_ITS ---
Intake Visit Reasons: Neck pain, Right shoulder pain and weakness Intake Note: Ellis is a 69 year old male who presents with complaints of progressively worsening neck pain which radiates down his right arm as well as right shoulder pain and weakness. The patient has undergone 3 low back surgeries in the past. The most recent surgery was performed at [facility] in 2019. He describes his neck pain as sharp in nature. His neck pain has gotten worse over the last year in spite of continued non operative treatments. Did aggravate his neck and right shoulder while using a drill approximately 6 months ago. He reports weakness in his right arm. The patient's neck pain is now interfering with his activities of daily living and his ability to sleep well through the night. He has failed the last 6 weeks of conservative treatment which has included Tylenol, tramadol and prednisone. He is not able to take anti-inflammatory medicines because he is on Eliquis. Allergies No Known Allergies Allergy (Verified 02/15/25 11:16) [facility] Medical History (Updated 02/15/25 @ 12:09 by Danny Samano MD) Right shoulder pain Arthritis of both hands Social History Alcohol intake: current Alcohol type: wine Comment: a glass of wine with dinner Patient Tobacco Use Status: Never used Tobacco Current occupational status: retired Current occupation: right handed Physical Exam Neck Other: Cervical spine examination shows pain with range of motion, crepitus with range of motion, right-sided paraspinal muscle tenderness, positive Spurling's test, 4/5 strength with testing of his right biceps and wrist extensors when compared to 5/5 strength on his left side Extrem Other: Right shoulder examination shows decreased range of motion when compared to his left shoulder, 4/5 strength with supraspinatus testing, positive impingement signs, no instability Results Reviewed Results Reviewed: X-rays of the patient's cervical spine show diffuse degenerative disc disease, no acute bony abnormalities X-rays of the patient's right shoulder show 3 suture anchors within the proximal humerus with no signs of loosening, a type 2 acromion, no acute bony abnormalities Assessment & Plan Assessment & Plan (1) Neck pain on right side: Code(s): M54.2 - Cervicalgia Category: Medical Plan Mr. Causey presents with progressively worsening neck pain which radiates down his right arm as well as associated right upper extremity weakness most likely due to cervical stenosis. Thus, I will send the patient for an MRI of his cervical spine for further evaluation. I will contact him by phone once the MRI results are available. The patient also has right shoulder pain and weakness likely due to a recurrent rotator cuff tear. We will hold off on a right shoulder MRI until after his cervical spine MRI. Feel free to call me at any time should questions regarding his orthopedic management arise. I spent 20 minutes in reviewing the patient's records and imaging studies, seeing the patient and documenting in the medical record. Orders: Orders XR shoulder RT min 2V Today M25.511 - Pain in right shoulder XR cervical spine 2V Today M54.2 - Cervicalgia MR cervical spine wo con 02/16/25 M54.2 - Cervicalgia Coding Level of Care Code Est Pt Level 3 (34036) Add On Problem Visit Only Diagnoses Neck pain on right side M54.2
--- OUTSIDE RECORDS SUMMARY | 2025-02-15 14:38 | XMS_ITS | Encounter Summary ---
Author Organization [facility] Address Formerly [facility] [employer] [address] [address] Phone Care Team Providers Care Calcine Furnace Tender Name Role Phone Ellis Prince MD Primary Care Provider [phone] Thiago Hunt MD Unavailable [phone] Encounter Details Date Type Department Care Team (Late st Contact Info) Description 05/21/2020 Procedure Pass [facility], [address] [address] Social History Tobacco Use Types Packs/Day Years [...] on filedocumented in this encounter Care Teams Calcine Furnace Tender Relationship Specialty Start Date End Date Ellis Prince MD [address] [place] [address] PCP - General Internal Medicine 03/16/19 Thiago Hunt MD [address] [place] [address] Manager Configuration Cardiology 03/27/19 documented as of this encounter Additional Source Comments The information contained in this document represents components of the legal health record. It is not the complete legal health record.[facility]
--- OUTSIDE RECORDS SUMMARY | 2025-02-15 14:38 | XMS_ITS | Encounter Summary ---
Author Organization [facility] Address [address] [address] Phone Care Team Providers Care Electronic News Gathering Camera Person Name Role Phone Ellis Prince MD Primary Care Provider [phone] Thiago Hunt MD Unavailable [phone] Encounter Details Date Type Department Care Team (Late st Contact Info) Description 06/17/2020 Ancillary Orders [facility],Outside Imaging [address] [place], [place] [id number] System, Provider Not In, [facility] [address] [address] Social History Tobacco Use Types Packs/Day Years [...] on filedocumented in this encounter Care Teams Electronic News Gathering Camera Person Relationship Specialty Start Date End Date Ellis Prince MD [address] [place] [address] PCP - General Internal Medicine 03/16/19 Thiago Hunt MD [address] [place] [address] Slabber Cardiology 03/27/19 documented as of this encounter Additional Source Comments The information contained in this document represents components of the legal health record. It is not the complete legal health record.[facility]
--- OUTSIDE RECORDS SUMMARY | 2025-02-15 14:38 | XMS_ITS | Encounter Summary ---
Author Organization [facility] Address [address] [facility] [address] [place] [address] Phone Care Team Providers Care Day Camp Counselor Name Role Phone Ellis Prince MD Primary Care Provider Thiago Hunt MD Unavailable [phone] Encounter Details Date Type Department Care Team (Late st Contact Info) Description 11/28/2019 Procedure Pass [facility] [place] [address] [facility], [address]th [place] [address] Social History Tobacco Use Types Packs/Day Years [...] on filedocumented in this encounter Care Teams Day Camp Counselor Relationship Specialty Start Date End Date Ellis Prince MD [address] [place] [address] PCP - General Internal Medicine 03/16/19 Thiago Hunt MD [address] [place] [address] Heavy Equipment Rental Manager Cardiology 03/27/19 documented as of this encounter Additional Source Comments The information contained in this document represents components of the legal health record. It is not the complete legal health record.[facility]
--- OUTSIDE RECORDS SUMMARY | 2025-02-15 14:39 | XMS_ITS | Encounter Summary ---
Author Organization [facility] Address [address] [facility] [address] [place] [address] Phone Care Team Providers Care Stevedoring Superintendent Name Role Phone Ellis Prince MD Primary Care Provider [phone] Thiago Hunt MD Unavailable [phone] Encounter Details Date Type Department Care Team (Late st Contact Info) Description 04/12/2019 Procedure Pass [facility] PERIOPERATIVE DEPT [address] [place] [id number] Social History Tobacco Use Types Packs/Day [...] on filedocumented in this encounter Care Teams Stevedoring Superintendent Relationship Specialty Start Date End Date Ellis Prince MD [address] [place] [address] PCP - General Internal Medicine 03/16/19 Thiago Hunt MD [address] [place] [address] Supervisor Stripping Cardiology 03/27/19 documented as of this encounter Additional Source Comments The information contained in this document represents components of the legal health record. It is not the complete legal health record.[facility]
--- OUTSIDE RECORDS SUMMARY | 2025-02-15 14:39 | XMS_ITS | Data Portability ---
Author Organization DANIEL - Matthew Cochran [facility] Address [address] [place] [address] Care Team Providers Care Manhole Builder Name Role Phone MAHISILVESTRE MCCURDY Primary Care Provider [phone] Assessment Encounter Date Assessment Date Assessment LastModified [...] 302 b long finger 3v 2023 024 cstjessd [facility], [address], [place], [address], 4 07:15:35 Medication Orders Kenalog 40 mg/mL suspension for injection 2023 024 nhulse Not available 10:12:46 Patient TargetsNo targets recorded. Patient InstructionsNo instructions recorded. Reason for Referral None Reported. Results Created Date Observation Date Name Description Value Unit Range Abnormal Flag Note LastModifiedBy Organization Detail LastModifiedTime 10/13/1910/13/2023 XR, finge r(s), 2 or more view http:/ [email or web address] ?Encry pted=s hAaTro YD8dLq bEUv6g %2BXZw aYqtaq 0bqfl% 2Fg9IQ a4ajBk vP9nXo QUaueC m3YtLR FvZlgJ JJ8mAn HZtai3 5h0992 AC0KoY nSCVKr eUC8mr 84%3D INTERFACE [facility] [address], [place], [address], 10/13/2023 10:23:22 10/13/19 24 10/13/2023 XR, finge r(s), 2 or more view http:/ [email or web address] ?Encry pted=s hAaTro YD8dLq bEUv6g %2BXZw aYqtaq 0bqfl% 2Fg9IQ a4ajBk vP9nXo QUaueC m3YtLR FvZl [facility] 7o7842 AC0KoY nSCVKr eUC8mr 84%3D INTERFACE [facility] [address], [place], [address], 10/13/2023 10:23:24 10/29/19 24 01/27/2019 imagi ng/di agnos tic resul t No observ ation record ed. [email or web address] Not Available 10/01 02:16:53 10/29/1902/10/2019 imagi ng/di agnos tic resul t No observ ation record ed. [email or web address] Not Available 10/01 02:16:55 10/29/1901/27/2019 esperanzai rey/miladys ardon resul t No observ ation record ed. [email or web address] Not Available 10/01 02:16:58 Result Notes Documentation Provider Name and Address Organization Details Recorded Time Xr, Finger(s), 2 Or More View : [email or web address]? Encrypted=qnKoYwpEI6nHliP Uv6g%6QLOudNqexe4bdzj%2Fg 6JYe2lgIqwH6tMbJHwysEk0In RIAlPozKWP4xHbBGlol81t686 0NR8ChGcLFMAbcWS1dg47%3D Not Available [facility] 10/13/2023 10:2 3:22 Xr, Finger(s), 2 Or More View : [email or web address]? Encrypted=ykFuSidAR6nIytO Uv6g%8MEBnrGkkjk5pnpp%2Fg 0KBd4bdXsdO8lOvHYvofGe4Yr JONpCrkSJP8zFjDNsmz21n167 7AP7QpCjOGDEhtEZ5ua39%3D Not Available [facility] 10/13/2023 10:2 3:25 Problems Name Problem SNOMED Code Status Onset Date Resolution Date Notes Provider Name and Address Organization Details Recorded Time Osteoarthri tis of joint of bilateral hands 9941862796961 09 Active 2023 Wilian Tang PA-C [address], [place], [address], [facility] 08:55:16 Problem Notes None recorded. Procedures Surgical History Date Name Laterality Status Provider Name and Address Organization Details Recorded Time Small Joint/Bursa Asp & Inj, Bilateral (medication) completed Wilian Tang PA-C [address], [place], [address], [facility] 10/13/2023 11:04:07 04/09/202 4 Small Joint/Bursa Asp & Inj, Bilateral (medication) completed Wilian Tang PA-C [address], [place], [address], [facility] 06/08/2023 13:14:36 Imaging Results None recorded. Procedure Notes None recorded. Medical Equipment None [...] Updated DateTime 06/08/2023 177.8 cm 30.1 kg/m2 47357.4 g SENQUISITY FADIA [facility] 06/08/2023 13:01:22 Date Recorded Body height Body mass index (BMI) Body weight Provider Name and Address Organization Details Last Updated DateTime 10/13/2023 177.8 cm 30.1 kg/m2 20601.4 g GRACIELA FRANK [facility] 10/13/2023 10:15:23 Social History None recorded. Functional Status None recorded. Mental Status None recorded. Family History Nothing Reported. Medical History No medical history recorded. Past Encounters Encounter ID Performer Location Encounter Start Date Encounter Closed Date Diagnosis/Indication Diagnosis SNOMED-CT Code Diagnosis ICD10 Code Diagnosis IMO Codes Diagnosis Note [id number] [facility] [address] [place] [address] 06/08/2023 12:37:42 06/30/2023 08:25:46 Osteoarthritis of joint of bilateral hands 1716293652 82151 M19.041 M19.574 [id number] [facility] [address] [address] 10/13/2023 10:06:10 11/09/2023 07:15:35 Osteoarthritis of joint of bilateral hands [id number] 83623 M19.041 M19.042 Health Concerns Section Related Observation LastModified by Organization Detai ls LastModified Time None Recorded Concern Status LastModified by Organization Details LastModified Time None Recorded Advance Directives Directive None Recorded Payers Insurance Date Sequence Insurance Name Policy Number Policy Carter Covered Member ID Carter Member ID Guarantor Name 11/09/2023 1 [facility] (MEDICARE REPLACEMENT/A DVANTAGE - PPO) [id number] Silvestre Magana [id number] Silvestre Magana Notes Date Note Type Note Provider Name and Address Organization Details Recorded Time 06/08/2023 text/html ROS as noted in the HPI I am seeing this patient under the [...] Tang PA-C [address], [place], [address], [facility] 06/08/2023 13:16:56 10/13/2023 text/html ROS as noted in the HPI I am seeing this patient under the [...] Tang PA-C [address], [place], [address], [facility] 10/13/2023 11:06:05
--- OUTSIDE RECORDS SUMMARY | 2025-02-15 14:39 | XMS_ITS | Clinical Summary ---
Author Organization [facility] Address [address] [address] Phone Care Team Providers Care Gradall Operator Name Role Phone Ellis Prince MD Primary Care Provider [phone] Thiago Hunt MD Unavailable [phone] Allergies Active Allergy Reactions Criticality Noted Date Comments Doxycycline 04/01/2021 Other reaction(s): Peeling of skin Lisinopril 07/25/2020 Medications ID-losartan (13-051) 25 mg tablet Take 25 mg by mouth daily. Active metoprolol succinate 25 mg CSpX Take 25 mg by mouth daily. Active valACYclovir (VALTREX) 1000 MG tablet Take 1,000 mg by mouth 2 (two) times a day. Active tiZANidine (ZANAFLEX) 2 MG tablet Take 1 tablet (2 mg total) by mouth 2 (two) times a day as needed (for pain). 60 tablet 1 03/27/2021 Active Active Problems Problem Noted Date Diagnosed Date Degeneration of lumbar or lumbosacral interverte bral disc 03/27/2021 Overview (05/23/2021): SPINE CENTER PLAN OF CARE Anomalous Vertebra? None, Lumbar Spine CT reviewed, T12 with ribs, 5 lumbarized vertebrae Allergies that may influence a procedure: None Medications that may influence a procedure: None PMHx and PSHx that may influence a procedure: @@@Hypertension (BP>210/110 results in cancelled case) ASA 2 - Patient with mild systemic disease with no functional limitations DIAGNOSTIC TESTING LABS: IMAGIN05/31/20 - Lumbar MRI - Images independently interpreted, agree with report. Salient report findings: Conus medullaris: Normal. Vertebral bodies: Bilateral posterior fusion hardware in place at L4-L5 and L5- S1. Artifact from the hardware partially obscures these levels. No evidence of compression fractures. No subluxations. T12-L1: Progressive degenerative endplate changes with an edematous component. Similar moderate disc space narrowing. Small broad-based disc-osteophyte complex. No central canal stenosis. Minimal bilateral neuroforaminal narrowing. L1-L2: Similar moderate-severe disc space narrowing and moderate degenerative endplate changes. Small broad-based disc-osteophyte complex. No central canal stenosis. Mild bilateral neuroforaminal narrowing. L2-L3: Severe disc space narrowing and degenerative endplate changes are similar. Small broad-based posterior osteophytes. A superimposed left sided disc protrusion is no longer demonstrated. There is less narrowing of the central canal than on 01/27/2019. Currently there is borderline central canal stenosis. Similar moderate facet arthropathy and mild thickening of the ligamentum flavum. Moderate neuroforaminal narrowing on the left and mild-moderate neuroforaminal narrowing on the right is similar. L3-L4: Moderate disc space narrowing and fairly severe degenerative endplate changes are minimally progressed. Small broad-based posterior osteophytes. Moderate facet arthropathy and mild thickening of ligamentum flavum. Mild progressive narrowing of the central canal and crowding of the cauda equina. Central canal stenosis is mild-moderate. Moderate-severe narrowing of the left neuroforamen by osteophytes and facet arthropathy similar to 01/27/2019. Less severe narrowing of the right neuroforamen. L4-L5: Artifact from posterior fusion hardware and disc cage within the disc space. Bilateral laminectomy defects. No central canal stenosis. Neuroforamina are largely obscured by artifact. L5-S1: Artifact from posterior fusion hardware. The spinal canal is partially obscured. Bilateral laminectomy defects. No findings to indicate central canal stenosis. Neuroforamina are largely obscured by artifact. There is evidence of neuroforaminal narrowing by osteophytes. Soft tissues: No evidence of paravertebral masses or focal fluid collections. Marrow signal: No suspicious marrow signal abnormalities. Other: No other significant changes. 05/21/20 - Lumbar Spine CT - Images independently interpreted, agree with report. Salient report findings: There are postsurgical changes related to posterior decompression and fusion from L4 to L5 with bilateral pedicle screws and fixation rods. There is also an interbody spacer at L4-5. Hardware is intact with no periprosthetic lucency or fracture. The lumbar alignment is unchanged, with slight rightward lateral listhesis of L2 on L3. The vertebral body heights are unchanged. There are multilevel Schmorl's nodes without a suspicious marrow replacing lesion. There is multilevel degenerative disc space narrowing, most advanced at L1-2, L2-3, and L5-S1. Defect in the posterior left iliac bone is likely the bone graft harvest site. There are expected postoperative changes in the posterior lower back without evidence of an organizing collection. In the partially imaged abdomen, there are extensive atherosclerotic calcifications of the splenic artery and moderate calcification of the infrarenal abdominal aorta. There are mild degenerative changes of the partially imaged bilateral hip joints. FINDINGS BY LEVEL: T12/L1: There is at least mild left neural foraminal stenosis. L1/L2: There is at least mild spinal canal mild bilateral neural foraminal stenosis. L2/L3: There is at least mild spinal canal and mild bilateral neural foraminal stenosis. L3/L4: There is at least mild spinal canal and mild bilateral neural foraminal stenosis. L4/L5: Status post posterior decompression. Foramina appear open. L5/S1: Status post posterior decompression. Foramina appear open. PRIOR TREATMENTS Physical Therapy: last in 2019 - not much relief, continues with home exercise program Medications tried: Procedures: Dr Washington 04/02/11 - L4-5 laminectomy for severe spinal stenosis 04/12/19 - INTERBODY FUSION TRANSFORAMINAL LUMBAR SPINE L4-5, L4 - S1 DECOMPRESION AND FUSION Oneil 04/01/21 - Right L3-4 and Left L4-5 TFESI - couldn't get medial flow with infra- neural approach at L3-4, switched to supraneural approach on both sides - 100% relief for 3 days, starting immediately 04/30/21 - Right L3-4 and left L4-5 TFESI - medial flow at L3-4, perineural flow at L4-5 - almost 100% for 3-4 days, then symptoms gradually returned. IMPRESSIONS & RECOMMENDATIONS Right slightly greater than left posterior thigh pain that is relatively constant in nature and does not seem to be associated with any specific aggravating events. Prior history significant for L4-S1 fusion 04/2019. Further imaging demonstrates slightly worsened L3-4 central canal stenosis. Differentials include leg pain due to nerve root impingement within the L3-4 central canal stenosis. - Discussed the pathophysiology, natural history and spectrum of treatment options. - Reviewed the importance of regular physical activity and maintenance of ideal body weight in the management of spine pain. - We reviewed imaging together with Zoom teleconferencing via the screen sharing function to demonstrate likely locations of pain generators. We reviewed basic spine anatomy and biomechanics. - Discussed red flag symptoms to watch out for including progressive weakness of the legs, loss of control of bowel or bladder function, and perirectal/saddle anesthesia. If any of these symptoms occur, the patient is to call the office. If unable to reach us, the patient is to go to the nearest emergency room. - We discussed the risks of spinal injections including bleeding, infection, increased pain, dysesthesias, nerve damage, paralysis, seizures, stroke and . We reviewed mitigating factors including usage of fluoroscopy, contrast, and having patients alert and awake to give us any feedback on increased discomfort. Patient understood these risks and I answered all questions. Patient was provided handouts reviewing full risks and instructions for the procedure for further review. - All questions were answered. - Lumbar Spine CT -reviewed with patient - Lumbar Spine MRI - reviewed with patient - Physical therapy with spine physical therapist - completed Meeks diagnostic test images: Lumbar spondylolysis 04/12/2019 Immunizations Immunization Administration Dates Next Due Influenza, Unspecified Formulation 04/03/2011(De ferred: Other) Family History Medical History Relation Comments Diabetes Father Lymphoma Mother Relation Status Comments Father Mother Social History Tobacco [...] Orientation Straight 03/16/2019 5: 27 PM EST Last Filed Vital Signs Vital Sign Reading Time Taken Comments Blood Pressure 140/67 04/30/2021 9:10 AM EST Pulse 62 04/30/2021 9:10 AM EST Temperature 36.5 C (97.7 F) 04/16/2019 12:00 PM EST Respiratory Rate 16 04/30/2021 9:10 AM EST Oxygen Saturation 99% 04/30/2021 9:10 AM EST Inhaled Oxygen Concentration - - Weight 95.3 kg (210 lb) 06/13/2020 3:00 PM EDT Height 177.8 cm (5' 10 ) 06/13/2020 3:00 PM EDT Body Mass Index 30.13 06/13/2020 3:00 PM EDT Plan of Treatment Health Maintenance Due Date Last Done Comments Adult Td,Tdap Booster 1955 LIPID PANEL 1953 DEPRESSION SCREENING 1965 HEPATITIS C SCREENING 1971 COLOGUARD 1998 COLONOSCOPY 1998 COLORECTAL CANCER SCREENING 1998 FIT TEST 1998 FOBT 1998 SIGMOIDOSCOPY 1998 VIRTUAL COLONOSCOPY 1998 PNEUMOCOCCAL VACCINES (50+ years) (1 of 1 - PCV) 2003 ZOSTER VACCINES (2 of 3) 02/04/2016 12/10/2015 CREATININE LEVEL 04/16/2020 04/16/2019, , 04/14/2019, Additional history exists POTASSIUM LEVEL 04/16/2020 04/16/2019, 04/01, 04/14/2019, Additional history exists INFLUENZA VACCINE (#1) 2024 0, 02/08/2019, 01/14/2017, Additional history exists COVID-19 VACCINE (2024- season) 2024 02/19/2021, 06/29/2020, 05/30/2020 RSV VACCINE (1 - 1-dose 75+ series) 2028 SMOKING STATUS SCREENING (Once After 26 Yrs) Completed 05/23/2021 HEPATITIS A VACCINES Aged Out No long er eligible based on patient's age to complete this topic HIB VACCINES Aged Out No longer eligi ble based on patient's age to complete this topic MENINGOCOCCAL VACCINES (ACWY) Aged Out No longer eligible based on patient's age to complete this topic MENINGOCOCCAL VACCINES (B) Aged Out N o longer eligible based on patient's age to complete this topic Medical Devices Implanted Type Area Market Asset Protection Manager Device Identifier Shelf Expiration Date Model / Serial / Lot Spine Vikas 5.5x65mm Expedium Titanium Curved Prelordosed Thoracolumbar - [id number] Implanted:Qty: 1 on 04/12/2019 by Thiago Washington MD at [facility] N/A: Spine Lumbar [employer] [id number] / / Screw Bone Spine Single Inner Set Cannulated Polyaxial Titanium - [id number] Implanted:Qty: 6 on 04/12/2019 by Thiago Washington MD at [facility] N/A: Spine Lumbar [employer] [id number] / / Bilateral Hardware Of Shoulders Inguinal With Mesh Screw Bone 5.5x7.0x45.0mm Spine Pedicle Cortical Expedium Polyaxial Titanium - [id number] Implanted:Qty: 4 on 04/12/2019 by Thiago Washington MD at [facility] N/A: Spine Lumbar [employer] [id number] / / Screw Bone 8x40mm Spine Titanium Cortical Fixation - [id number] Implanted:Qty: 2 on 04/12/2019 by Thiago Washington MD at [facility] N/A: Spine Lumbar [employer] [id number] / / Spine Vikas 5.5x75mm Expedium Titanium Curved Prelordosed Thoracolumbar - [id number] Implanted:Qty: 1 on 04/12/2019 by Thiago Washington MD at [facility] N/A: Spine Lumbar [employer] [id number] / / Eit Cellular Titanium Implanted:Qty: 1 on 04/12/2019 by Thiago Washington MD at [facility] N/A: Spine Lumbar [employer]INE 03/31/2023 [id number] / / [id number] Procedures Procedure Name Priority Date/Time Associated Diagnosis Comments BASIC METABOLIC PANEL (BMP) Routine 04/16/2019 6:00 AM EST from Last 3 Months or Most Recently Relevant to Health Maintenance Results * (ABNORMAL) Basic metabolic panel (04/16/2019 6:00 AM EST) SODIUM 136 135 - 145 mmol/L [facility] POTASSIUM 4.2 3.4 - 5.0 mmol/L [facility] CHLORIDE 99 98 - 108 mmol/L [facility] CO2 23 23 - 32 mmol/L [facility] BUN 10 8 - 25 mg/dL [facility] CREATININE 0.84 0.60 - 1.50 mg/dL [facility] GLUCOSE 121(H) 70 - 110 mg/dL [facility] CALCIUM 8.8 8.5 - 10.5 mg/dL [facility] EGFR 92 >59 mL/min/1. 73m2 [facility] Comment:If patient is black, multiply result by 1.159. Estimated glomerular filtration rate calculated using the CKD-EPI equation. ANION GAP 14 3 - 17 mmol/L [facility] Blood 04/16/2019 6:00 AM EST 04/16/2019 6:29 [address] EST [address] DATA ENGINEER LAB BLOOD BKR ORDERABLE S Final Result [address] [address] from Last 3 Months or Most Recently Relevant to Health Maintenance Insurance [facility] MEDICARE REPLACEMENT ANDREINA CARBALLO [address] MEDICARE REPLACEMENT ANDREINA CARBALLO [address] MED[address] [place]AC[place] [address] [place] [address] [place] [address] MEDICARE REPLACEMENT [facility] MEDICARE REPLACEMENT ANDREINA CARBALLO [place], [place] [facility] MEDICARE REPLACEMENT Advance Directives For more information, please contact: [phone] (9AM - 5PM [facility], Wednesday-Wednesday) Documents on File Type Date Recorded Patient Water Server Expl anation Healthcare Proxy 04/21/2019 * Full Code (Presumed) (Latest Code Status on File) Date Activated Date Inactivated Comments 04/12/2019 5:16 PM 04/16/2019 4:02 PM Care Teams Gradall Operator Relationship Specialty Start Date End Date Ellis Prince MD [address] [place] [address] PCP - General Internal Medicine 03/16/19 Thiago Hunt MD [address] [place] [address] Brim Edge Trimmer Cardiology 03/27/19 Additional Source Comments The information contained in this document represents components of the legal health record. It is not the complete legal health record.[facility]
--- OUTSIDE RECORDS SUMMARY | 2025-02-15 14:39 | XMS_ITS | Clinical Summary ---
Author Organization [facility] Address [address] [place] [address] Phone Care Team Providers Care Box Maker Wood Name Role Phone Myra Martinez Primary Care P rovider Allergies Active Allergy Reactions Criticality Noted Date Comments Doxycycline 04/01/2021 Other reaction(s): Peeling of skin Lisinopril 07/25/2020 Medications ascorbic acid (VITAMIN C) 500 mg chewable tablet Take 500 mg by mouth daily. Active vitamin B complex/folic acid (B COMPLEX 100 ORAL) Take 1 Tablet by mouth daily. 020 Active MAGNESIUM CITRATE ORAL Take 1 tablet by mouth 1 (one) time each day. 020 Active valacyclovir HCl (VALACYCLOVIR ORAL) Take by mouth as needed. Active aspirin 81 mg EC tablet Take 1 tablet (81 mg total) by mouth 1 (one) time each day. 023 Active cholecalciferol (VITAMIN D-3) 50 mcg (2,000 unit) tablet Take 1 tablet (2,000 Units total) by mouth 1 (one) time each day. Active furosemide (LASIX) 20 mg tablet Take 1 tablet (20 mg total) by mouth 1 (one) time each day if needed. 023 Active multivitamin with minerals tablet Take 1 tablet by mouth 1 (one) time each day. Active ASHWAGANDHA EXTRACT ORAL Take by mouth. Active plant stanol fabiano (CHOLEST OFF ORAL) Take by mouth. Active ZINC ORAL Take by mouth. Active atorvastatin (LIPITOR) 40 mg tabletIndications:Pure hypercholesterolemia Take 1 tablet (40 mg total) by mouth 1 (one) time each day. 90 each 3 025 2025 Active metoprolol succinate (TOPROL-XL) 25 mg 24 hr tablet TAKE 1 TABLET BY MOUTH DAILY 90 tablet 3 025 Active traMADoL (ULTRAM) 50 mg tablet Take by mouth. Active losartan (COZAAR) 25 mg tablet TAKE 1 TABLET BY MOUTH DAILY 90 tablet 1 025 Active Eliquis 5 mg tablet TAKE 1 TABLET(5 MG) BY MOUTH TWICE DAILY 180 tablet 1 025 Active apixaban (ELIQUIS) 5 mg tablet Take 1 tablet (5 mg total) by mouth 2 (two) times a day. 180 tablet 1 025 2024 Discontinued Active Problems Problem Noted Date Diagnosed Date Claudication of both lower extremities Pure hypercholesterolemia 04/04/2024 Assessment & Plan (10/24/2024 11:49 AM EDT): Continue with atorvastatin. Assessment & Plan (04/04/2024 12:30 PM EST): LDL in90's on atorvastatin 10 mg. Will increase to 40 mg a day. Paroxysmal atrial fibrillation 04/02/2024 Assessment & Plan (10/24/2024 11:49 AM [...] for at least 6 months and use [employer] for monitoring for now. Orders: ECG 12 [...] hernia 01/31/2024 Vertigo 08/27/2022 Nonischemic cardiomyopathy 08/08/2020 Overview (10/24/2024): 2009 normal coronary anatomy [...] aneurysm without rupture 021 Assessment & Plan (10/24/2024 11:49 AM EDT): [...] order panel; Future Shortness of breath 07/25/2020 Surgical History Surgery Date Site/Laterality Comments BACK [...] Orientation Straight 05/15/2024 3: 34 PM EDT Last Filed Vital Signs Vital Sign Reading [...] Health Maintenance Due Date Last Done Comments Colorectal Cancer Screening: Colonoscopy 1955 DTaP,Tdap,and Td Vaccines (1 - Tdap) 1972 Pneumococcal Vaccine: 50+ Years (1 of 1 - PCV) 2003 RSV Immunization Adult Patients (1 - Risk 50-74 years 1-dose series) 2003 Zoster Vaccines (2 of 3) 02/04/2016 12/10/2015 Abdominal Aortic Aneurysm (AAA) Screen 02/01/2022 Falls Risk Assessment 02/01/2022 Hepatitis C [...] 9:51 AM EDT Coronary artery disease involving [place] coronary artery of [place] heart without angina pectoris BASIC METABOLIC PANEL Routine 06/27/2024 1:44 PM EDT from Last 3 Months or Most Recently Relevant to Health Maintenance Results * (ABNORMAL) Lipid panel (11/10/2024 9:51 AM EDT) Cholesterol Total 179 100 - 199 mg/dL [...] AM EDT Performed at: 01 - [facility] [address] [id number] Hand Bootmaker: Consuelo Villagomez MD, Phone: [phone] us Thiago Hunt MD LAB BLOOD ORDERABLES Final Res ult [facility] 1 * (ABNORMAL) Basic metabolic panel (06/27/2024 1:44 [...] 6:07 PM EDT Performed at: 01 - [facility] [address] [id number] Hand Bootmaker: Consuelo Villagomez MD, Phone: [phone] us Thiago Hunt MD LAB BLOOD ORDERABLES Final Res ult [facility] 1 from Last 3 Months or Most Recently Relevant to Health Maintenance Insurance [facility] MEDICARE Care Teams Box Maker Wood Relationship Specialty Start Date End Date Myra Martinez PA [address] [address] [facility] - General 04/03/24
--- OUTSIDE RECORDS SUMMARY | 2025-02-15 14:39 | XMS_ITS | Clinical Summary ---
Author Organization [employer] [facility] Prior to 07/29/24 Address [address] [place] [address] Care Team Providers Care Natural Resources Manager Name Role Phone Ellis Prince MD Primary Care Provider [phone] Allergies Active Allergy Reactions Criticality Noted Date [...] 1 - PCV) 2018 Influenza Vaccine (#1) 2024 RSV Adult > 60+ Yrs or Pregn ant (1 - 1-dose 75+ series) 2028 Hepatitis B Vaccines Aged Out No long er eligible based on patient's age to complete this topic RSV Ped < 20 months Aged Out No longe r eligible based on patient's age to complete this topic Care Teams Natural Resources Manager Relationship Specialty Start Date End Date Ellis Prince MD [address], [address] [place] [address] PCP - General Mounted Police Officer 03/18/21
== END 2025-02-15 12:01 | disposition home or self-care (01) ==
LOC: HO.HOS 11:10
PROVIDERS: Visit Provider Orthopaedic Surgery
DX: M54.2 Cervicalgia (principal)
CPT/HCPCS: 99213; G2211

== ENCOUNTER → 2025-02-15 11:17 | Outpatient (BNV) | payer MEDICARE, SELFPAY | PROVIDERS: Visit Provider Radiology Diagnostic Radiology | DX: M47.812 Spondylosis without myelopathy or radiculopathy, cervical region (principal); M19.011 Primary osteoarthritis, right shoulder | CPT/HCPCS: 72040; 73030 ==